=== PATIENT | female | born 1945 | race Caucasian/White ===

== ENCOUNTER 2018-08-16 17:27 | Inpatient (IN) | payer MEDICARE, OTHER, SELFPAY ==
[2018-08-16] VITALS (11 sets, daily range): BP systolic 107–147; BP diastolic 49–98; PULSE 70–77; RESP 18–25; TEMP 36.9–37.3; O2SAT 90–100; BMI 32.9
--- NOTE | 2018-08-16 17:41 | DI.RAD.S_ITS ---
PROCEDURE: XR CHEST 1V INDICATIONS: short of breath hypoxic TECHNIQUE: One view of the chest was acquired. COMPARISON: None. FINDINGS: Surgical changes and devices: None. Lungs and pleura: There is a mild overall appearance increased vascularity. Patchy retrocardiac opacity is present. Mild left effusion. Mediastinum: Mediastinal contours appear normal. Heart size is enlarged. Bones and chest wall: No suspicious bony lesions. Overlying soft tissues appear unremarkable. IMPRESSION: Cardiomegaly with mild left effusion and increased vascularity suggestive of edema. Patchy retrocardiac opacity is present which could represent developing airspace disease such as pneumonia. Dictated by: Zoey Eastman M.D. on 08/16/2018 at 18:20 Approved by: Zoey Eastman M.D. on 08/16/2018 at 18:21
[2018-08-16 17:58] LABS: Add Manual Diff / Slide Review NO; Basophils Absolute Auto 0 /uL (0-100); Basophils Percent Auto 0.3 % (0-2); Eosinophils Absolute Auto 500 /uL (0-450); Eosinophils Percent Auto 3.2 % (2-4); Hematocrit 35.7 % (36-46); Hemoglobin 12.1 g/dL (12.0-16.0); Lymphocytes Absolute Auto 400 /uL (1100-4500); Lymphocytes Percent Auto 2.9 % (25-40); Mean Corpuscular HGB Conc 33.8 % (30-36); Mean Corpuscular Volume 91.7 fL (80-100); Monocytes Absolute Auto 900 /uL (0-900); Monocytes Percent Auto 6.2 % (3-14); Neutrophils Absolute Auto 12500 /uL (1500-7000); Neutrophils Percent Auto 87.4 % (50-75); Platelet Count 197 X10^3/uL (150-400); Red Cell Distribution Width 14.3 % (11.6-14.8); White Blood Cell Count 14.4 X10^3/uL (4.5-11.0)
[2018-08-16] MEDS: ALBUTEROL/IPRATROPIUM 3 ML AMPUL INH (17:58)
[2018-08-16 18:00] LABS: INR 1.2 (0.9-1.3)
[2018-08-16 18:03] LABS: PTT Partial Thromboplastin Tim 28 SECONDS (26.4-36.2)
--- NOTE | 2018-08-16 18:03 | ED.SOB ---
HPI - SOB/Dyspnea General Chief Complaint: Shortness of Breath/Dyspnea Stated Complaint: Short of breath Time Seen by Provider: 08/16/18 17:41 Source: patient and family Mode of arrival: ambulatory Limitations: no limitations History of Present Illness This is a 72-year-old female that comes to the emergency department with complaint of cough, shortness of breath and chest pain. That cough started several weeks to 2 weeks ago. Recently she has felt more short of breath, and she has been having chest pain. She states it radiates between her shoulder blades. She states it is pleuritic in nature. She states it feels like burning she states it has been constant for the last several days. She was seen at [facility] because she had a fever of 102 F, her ankles have been swelling and she was having worsening shortness of breath. She had a chest x-ray, CT of abdomen pelvis as well as lab work including a CBC, CMP, BNP but no troponin. Patient has also been having some dysuria and urgency. She has chronic urinary incontinence. She has not had any nausea or vomiting in the last day but did have 1 episode of vomiting prior to being seen in [facility]. She has not had any bright red blood or melena. She states she has had 1 episode of fecal incontinence secondary to coughing. She takes medication for thyroid, hypertension as well as urinary incontinence. She has had issues over the last several years. Related Data Home Medications Medication Instructions Recorded Confirmed albuterol sulfate 1 puff INHALATION QID PRN 08/16/18 08/16/18 azithromycin 250 mg PO DAILY 08/16/18 08/16/18 fesoterodine [Toviaz] 8 mg PO DAILY 08/16/18 08/16/18 levothyroxine 125 mcg PO DAILY 08/16/18 08/16/18 losartan 50 mg PO DAILY 08/16/18 08/16/18 nitrofurantoin monohyd/m-cryst 1 tab PO BID 08/16/18 08/16/18 propranolol 80 mg PO DAILY 08/16/18 08/16/18 Allergies Allergy/AdvReac Type Severity Reaction Status Date / Time No Known Drug Allergies Allergy Verified 08/16/18 17:37 Review of Systems Review of Systems ROS Unobtainable: All systems reviewed & are unremarkable except as noted in HPI and below Constitutional Denies chills, Reports fever(s) (couple days ago), Denies lethargy and Denies weakness Cardiovascular Reports chest pain (pleuritic), Denies chest pain at rest, Denies syncope, Denies rapid heart rate, Reports edema (b/l lower extremities), Denies irregular heart rhythm, Denies lightheadedness, Reports radiating jaw, neck or arm pain (between shoulder blades), Denies palpitations, Reports dyspnea, Reports dyspnea on exertion and Denies orthopnea Respiratory Denies change in phlegm color, Reports chest congestion, Reports cough, Denies hemoptysis, Denies excessive phlegm production, Reports pain on inspiration, Reports dyspnea, Reports dyspnea on exertion, Denies stridor and Reports wheezing Gastrointestinal Gastrointestinal: Denies abdominal pain, Denies change in bowel habits, Denies diarrhea, Denies nausea and Reports vomiting (x1 two days ago) Genitourinary Denies hematuria, Denies urinary frequency, Reports dysuria, Denies flank pain, Reports urinary incontinence and Denies urinary urgency Musculoskeletal Reports back pain (chronic low back pain) Integumentary/Breasts Reports erythema (both legs.) Neurologic Denies syncope and Denies weakness Endocrine Denies palpitations Allergic/Immunologic Reports wheezing PFSH Medical History (Updated 08/16/18 @ 19:21 by Guerline Grider DO) Breast cancer (Chronic) Fusion of lumbar spine (Chronic) Hypertension (Chronic) Hypothyroid (Chronic) LBBB (left bundle branch block) (Chronic) Urinary incontinence (Chronic) Surgical History (Updated 08/16/18 @ 18:45 by Guerline Grider DO) H/O lumpectomy (Chronic) Hx of cholecystectomy (Chronic) Social History (Updated 08/16/18 @ 18:45 by Guerline Grider DO) marital status: household members: spouse Smoking Status: Former smoker alcohol intake: current substance use type: does not use additional social history: Lives in [place] Social History (Updated 08/16/18 @ 18:45 by Guerline Grider DO) marital status: household members: spouse Smoking Status: Former smoker alcohol intake: current substance use type: does not use additional social history: [facility] in [place] Exam Narrative Exam Narrative: GEN: well nourished, well appearing female, alert and oriented x 3, patient appears to be in mild distress. HEENT: Atraumatic, pupils are equal round reactive to light, extraocular movements are intact, nares are clear. HEART: Regular rate and rhythm without murmur, clicks, rubs. Pulses are equal in upper and lower extremities, patient has 2+ edema bilateral lower extremities. LUNGS:Lungs have mild wheeze bilaterally, no rales, crackles, chest moves symmetrically ABD:bowel sounds normal, soft, non-tender, no guarding, rebound, rigidity, no masses noted, no hepatosplenomegaly :No CVA tenderness MSCL: Non-tender, no muscle atrophy, muscles strength 5/5 upper and lower extremities, full range of motion NEURO:CN 2-12 intact, sensation normal Initial Vital Signs Initial Vital Signs: Vital Signs Temperature 99.2 F 08/16/18 17:37 Pulse Rate 77 08/16/18 17:37 Respiratory Rate 22 08/16/18 17:37 Blood Pressure 132/57 L 08/16/18 17:37 Pulse Oximetry 90 L 08/16/18 17:37 Scores HEART Score Heart Score history: Highly Suspicious Heart Score EKG: Non-Specific repolarization disturbance Heart Score Age: > or = 65 years old Heart Score risk factors: 1-2 risk factors Heart Score troponin: < or = to normal limit Heart Score Total: 6 PERC Score Age greater than or equal to 50 years: Yes Heart rate greater than or equal to 100 bpm: No Room Air O2 Sat less than 95%: Yes Unilateral leg swelling: No Recent trauma or surgery: No Hemoptysis: No Prior PE or DVT: No Hormone Use: No Total PERC Score: 2 Course Orders Ordered: ED Orders 08/16/18 17:41 Consult to Respiratory Therapy Evaluate & Treat XR chest 1V Stat EKG-12 Lead Stat 08/16/18 17:43 B Type Natriuretic Peptide Stat Complete Blood Count AUTO DIFF Stat Comprehensive Metabolic Panel Stat Lactate (Lactic Acid) Stat Magnesium Stat Partial Thromboplastin Time Stat Procalcitonin Stat Prothrombin Time INR Stat Troponin & CK Cardiac Panel Stat 08/16/18 18:06 Blood Culture Stat 08/16/18 18:39 CT angio chest PE protocol Stat 08/16/18 21:26 Urinalysis and Microscopic Stat 08/16/18 21:33 Urinalysis and Microscopic Urgent 08/16/18 23:50 Troponin I Q6H 08/17/18 05:00 B Type Natriuretic Peptide Routine Basic Metabolic Panel Routine Complete Blood Count AUTO DIFF Routine Procalcitonin Routine 08/17/18 05:50 Troponin I Q6H 08/17/18 09:27 EC echo limited Urgent Acetaminophen (Tylenol) 650 mg PO Q6HR PRN PRN Reason: As Needed for Fever/Mild Pain Albuterol (Ventolin Hfa) 1 puff INH QID PRN PRN Reason: Wheezing Albuterol (Ventolin) 2.5 mg INH [id number] PRN PRN Reason: shortness of breath Albuterol/Ipratropium (Duoneb) 3 ml INH RTQ4HR PRN PRN Reason: Shortness Of Breath Aspirin (Aspirin Ec) 81 mg PO DAILY [facility] Azithromycin (Zithromax) 250 mg PO DAILY [facility] Stop: 08/19/18 09:00 Enoxaparin Sodium (Lovenox) 40 mg SUBCUT DAILY [facility] Levothyroxine Sodium (Synthroid) 125 mcg PO 0700 [facility] Losartan Potassium (Cozaar) 50 mg PO DAILY [facility] Non-Formulary Medication (Fesoterodine) 8 mg PO DAILY [facility] Propranolol HCl (Inderal La) 80 mg PO DAILY [facility] Discontinued Medications Albuterol/Ipratropium (Duoneb) 3 ml INH NOW ONE Stop: 08/16/18 17:42 Last Admin: 08/16/18 17:58 Dose: 3 ml Aspirin (Aspirin Chew) 324 mg PO NOW ONE Stop: 08/16/18 18:41 Last Admin: 08/16/18 18:58 Dose: 324 mg Furosemide (Lasix) 40 mg IV NOW ONE Stop: 08/16/18 18:41 Last Admin: 08/16/18 18:59 Dose: 40 mg Methylprednisolone (Solu-Medrol 125 Mg Vial) 125 mg IV NOW ONE Stop: 08/16/18 17:42 Last Admin: 08/16/18 18:06 Dose: 125 mg Vital Signs - 8 hr 08/16/18 17:37 08/16/18 17:42 08/16/18 18:06 Temperature 99.2 F Pulse Rate 77 73 Respiratory Rate 22 25 H Blood Pressure 132/57 L Blood Pressure [Right Arm] 119/49 L Pulse Oximetry 90 L 96 96 08/16/18 18:08 08/16/18 18:27 08/16/18 18:30 Temperature Pulse Rate 75 72 74 Respiratory Rate 20 24 21 Blood Pressure Blood Pressure [Right Arm] 107/87 121/55 L Pulse Oximetry 98 94 100 08/16/18 19:30 08/16/18 20:00 08/16/18 20:30 Temperature Pulse Rate 71 71 70 Respiratory Rate 23 24 Blood Pressure Blood Pressure [Right Arm] 147/98 H 143/61 H 129/60 Pulse Oximetry 95 96 97 08/16/18 21:00 08/16/18 21:15 Temperature 98.4 F Pulse Rate 72 71 Respiratory Rate 22 18 Blood Pressure 129/70 140/60 Blood Pressure [Right Arm] Pulse Oximetry 97 93 MDM - SOB/Dyspnea Lab Data Attestation: I reviewed the patient's lab results. Result diagrams: 08/16/18 17:43 08/16/18 17:43 Lab Results 08/16/18 08/16/18 08/16/18 Range/Units 17:43 17:43 17:43 WBC 14.4 H (4.5-11.0) X10^3/uL RBC 3.90 L (4.0-5.2) X10^6/uL Hgb 12.1 (12.0-16.0) g/dL Hct 35.7 L (36-46) % MCV 91.7 (80-100) fL MCH 31.0 (26-34) PG MCHC 33.8 (30-36) % RDW 14.3 (11.6-14.8) % Plt Count 197 (150-400) X10^3/uL Neut % (Auto) 87.4 H (50-75) % Lymph % (Auto) 2.9 L (25-40) % Preston % (Auto) 6.2 (3-14) % Eos % (Auto) 3.2 (2-4) % Baso % (Auto) 0.3 (0-2) % Neut # (Auto) 11170 H (4062-3760) /uL Lymph # (Auto) 400 L (9035-4769) /uL Preston # (Auto) 900 (0-900) /uL Eos # (Auto) 500 H (0-450) /uL Baso # (Auto) 0 (0-100) /uL PT 14.0 H (10.1-12.7) SECONDS INR 1.2 (0.9-1.3) APTT 28 (26.4-36.2) SECONDS Sodium 141 (137-145) mmol/L Potassium 4.1 (3.4-5.1) mmol/L Chloride 107 (98-107) mmol/L Carbon Dioxide 24 (22-32) mmol/L BUN 20 H (7-17) mg/dL Creatinine 0.90 (0.52-1.04) mg/dL Estimated GFR > 60.0 (>60) mL/min BUN/Creatinine Ratio 22.2 H (6-22) Glucose 129 H (80-110) mg/dL Lactate (0.7-2.1) mmol/L Calcium 8.8 (8.4-10.2) mg/dL Magnesium 1.8 (1.6-2.3) mg/dL Total Bilirubin 1.0 (0.2-1.3) mg/dL AST 57 H (14-36) IU/L ALT 44 (9-52) IU/L Alkaline Phosphatase 115 (38-126) U/L Total Creatine Kinase 66 (30-135) U/L CK-MB (CK-2) TNP CK-MB (CK-2) Rel Index TNP Troponin I 0.013 (0.01-0.034) ng/mL B-Natriuretic Peptide 963 H (<100) Total Protein 6.8 (6.3-8.2) g/dL Albumin 3.7 (3.5-5.0) g/dL Globulin 3.1 (1.7-4.1) g/dL Albumin/Globulin Ratio 1.2 (1.0-2.8) Procalcitonin (<0.5) ng/mL 08/16/18 08/16/18 Range/Units 17:43 17:43 WBC (4.5-11.0) X10^3/uL RBC (4.0-5.2) X10^6/uL Hgb (12.0-16.0) g/dL Hct (36-46) % MCV (80-100) fL MCH (26-34) PG MCHC (30-36) % RDW (11.6-14.8) % Plt Count (150-400) X10^3/uL Neut % (Auto) (50-75) % Lymph % (Auto) (25-40) % Preston % (Auto) (3-14) % Eos % (Auto) (2-4) % Baso % (Auto) (0-2) % Neut # (Auto) (3619-2633) /uL Lymph # (Auto) (7407-2819) /uL Preston # (Auto) (0-900) /uL Eos # (Auto) (0-450) /uL Baso # (Auto) (0-100) /uL PT (10.1-12.7) SECONDS INR (0.9-1.3) APTT (26.4-36.2) SECONDS Sodium (137-145) mmol/L Potassium (3.4-5.1) mmol/L Chloride (98-107) mmol/L Carbon Dioxide (22-32) mmol/L BUN (7-17) mg/dL Creatinine (0.52-1.04) mg/dL Estimated GFR (>60) mL/min BUN/Creatinine Ratio (6-22) Glucose (80-110) mg/dL Lactate 1.2 (0.7-2.1) mmol/L Calcium (8.4-10.2) mg/dL Magnesium (1.6-2.3) mg/dL Total Bilirubin (0.2-1.3) mg/dL AST (14-36) IU/L ALT (9-52) IU/L Alkaline Phosphatase (38-126) U/L Total Creatine Kinase (30-135) U/L CK-MB (CK-2) CK-MB (CK-2) Rel Index Troponin I (0.01-0.034) ng/mL B-Natriuretic Peptide (<100) Total Protein (6.3-8.2) g/dL Albumin (3.5-5.0) g/dL Globulin (1.7-4.1) g/dL Albumin/Globulin Ratio (1.0-2.8) Procalcitonin 0.21 (<0.5) ng/mL Imaging Data Chest x-ray: Radiologist's impression: [address] [address] XRay Report Signed Patient: Carolyn Peñaloza#: [id number] : 5Acct:[id number] Age/Sex: 72 / FDate of Service: 08/16/18 Loc: ED Accession Number: [id number] Procedure: XR chest 1V Ordering Provider: Yanely Reddy D.O. PROCEDURE: XR CHEST 1V INDICATIONS: short of breath hypoxic TECHNIQUE: One view of the chest was acquired. COMPARISON: None. FINDINGS: Surgical changes and devices: None. Lungs and pleura: There is a mild overall appearance increased vascularity. Patchy retrocardiac opacity is present. Mild left effusion. Mediastinum: Mediastinal contours appear normal. Heart size is enlarged. Bones and chest wall: No suspicious bony lesions. Overlying soft tissues appear unremarkable. IMPRESSION: Cardiomegaly with mild left effusion and increased vascularity suggestive of edema. Patchy retrocardiac opacity is present which could represent developing airspace disease such as pneumonia. Dictated by: Zoey Eastman M.D. on 08/16/2018 at 18:20 Approved by: Zoey Eastman M.D. on 08/16/2018 at 18:21 ECG Data Attestation: I personally reviewed and interpreted this ECG as follows: Prior ECG tracings: not available for review Interpretation: Sinus rhythm with a rate of 74 P are 184 QRS of 154 QTC of 475 left bundle-branch block. Patient has impression 1 aVL. MDM Narrative Medical decision making narrative: Patient had a workup at Tuesday that did not include troponin but did include a BNP in the 400 range. She had a chest x-ray as well as an CT of the abdomen and pelvis which showed left lower lobe pneumonia/effusion. Patient's other lab work today shows a white count of 14 hemoglobin appears stable. PTT slightly elevated but coags otherwise normal, chemistry showed BUN elevated at 20 with a glucose of 129, normal lactate, normal electrolytes otherwise, LFTs are normal and troponin is 0.013 with a BNP that is 963 and procalcitonin is 0.21 makes pneumonia less likely. Patient did respond albuterol she feels better, her wheeze did resolve. I am concerned about PE with her long distance driving from [place] and the couple weeks. According to patient's family her daughter is a PA, she has had a left bundle branch block for many years and had a stress test 1 or 2 years ago which was negative. On recheck patient's wheezing is resolved. She is feeling much better. Her oxygenation has been improving. Discussed with patient although her troponin is negative, BNP is rising. Likely she has congestive heart failure but with her recent long distance travel and pleuritic chest pain I would recommend a CT of her chest to evaluate for PE. Patient was given a dose of Lasix 40 mg IV as well as aspirin [address] PE is negative, does show mild bilateral delusions, pulmonary nodule x2 noted, no pleural effusions or pneumothorax. Patient case was discussed with JANE Awad who accepts for inpatient and saw patient in the Emergency Department. Discharge Plan Departure Patient Disposition: Admitted as Observation Clinical Impression: Congestive heart failure (CHF) Discharge Date/Time: 08/16/18 21:07 Interventions: ED Discharge Assessment Last Done: 08/16/18 21:07 Admit Date/Time: 08/16/18 20:14 Admit Provider: Maggie Awad
[2018-08-16 18:04] LABS: Alanine Aminotransferase 44 IU/L (9-52); Albumin 3.7 g/dL (3.5-5.0); Albumin Globulin Ratio 1.2 (1.0-2.8); Alkaline Phosphatase 115 U/L (38-126); Aspartate Aminotransferase 57 IU/L (14-36); BUN Creatinine Ratio 22.2 (6-22); Blood Urea Nitrogen 20 mg/dL (7-17); Calcium 8.8 mg/dL (8.4-10.2); Carbon Dioxide 24 mmol/L (22-32); Chloride 107 mmol/L (98-107); Creatine Kinase 66 U/L (30-135); Estimated Glomerular Filt Rate > 60.0 mL/min (>60); Globulin 3.1 g/dL (1.7-4.1); Glucose 129 mg/dL (80-110); HEMOLYSIS 39 (0-50); Magnesium 1.8 mg/dL (1.6-2.3); Potassium 4.1 mmol/L (3.4-5.1); Sodium 141 mmol/L (137-145); Total Protein 6.8 g/dL (6.3-8.2)
[2018-08-16 18:05] LABS: Lactate (Lactic Acid) 1.2 mmol/L (0.7-2.1)
[2018-08-16] MEDS: methylPREDNISolone 125 MG/2 ML VIAL IV (18:06)
[2018-08-16 18:09] LABS: B Type Natriuretic Peptide 963 (<100)
[2018-08-16 18:16] LABS: Troponin I 0.013 ng/mL (0.01-0.034)
[2018-08-16 18:27] LABS: Procalcitonin 0.21 ng/mL (<0.5)
--- NOTE | 2018-08-16 18:29 | ED_ITS ---
HPI - SOB/Dyspnea General Chief Complaint: Shortness of Breath/Dyspnea Stated Complaint: Short of breath Time Seen by Provider: 08/16/18 17:41 Source: patient and family Mode of arrival: ambulatory Limitations: no limitations History of Present Illness This is a 72-year-old female that comes to the emergency department with complaint of cough, shortness of breath and chest pain. That cough started several weeks to 2 weeks ago. Recently she has felt more short of breath, and she has been having chest pain. She states it radiates between her shoulder blades. She states it is pleuritic in nature. She states it feels like burning she states it has been constant for the last several days. She was seen at [place] because she had a fever of 102 F, her ankles have been swelling and she was having worsening shortness of breath. She had a chest x-ray, CT of abdomen pelvis as well as lab work including a CBC, CMP, BNP but no troponin. Patient has also been having some dysuria and urgency. She has chronic urinary incontinence. She has not had any nausea or vomiting in the last day but did have 1 episode of vomiting prior to being seen in [place]. She has not had any bright red blood or melena. She states she has had 1 episode of fecal incontinence secondary to coughing. She takes medication for thyroid, hy pertension as well as urinary incontinence. She has had issues over the last several years. Related Data Home Medications Medication Instructions Recorded Confirmed albuterol sulfate 1 puff INHALATION QID PRN 08/16/18 08/16/18 azithromycin 250 mg PO DAILY 08/16/18 08/16/18 fesoterodine [Toviaz] 8 mg PO DAILY 08/16/18 08/16/18 levothyroxine 125 mcg PO DAILY 08/16/18 08/16/18 losartan 50 mg PO DAILY 08/16/18 08/16/18 nitrofurantoin monohyd/m-cryst 1 tab PO BID 08/16/18 08/16/18 propranolol 80 mg PO DAILY 08/16/18 08/16/18 Allergies Allergy/AdvReac Type Severity Reaction Status Date / Time No Known Drug Allergies Allergy Verified 08/16/18 17:37 Review of Systems Review of Systems ROS Unobtainable: All systems reviewed & are unremarkable except as noted in HPI and below Constitutional Denies chills, Reports fever(s) (couple days ago), Denies lethargy and Denies weakness Cardiovascular Reports chest pain (pleuritic), Denies chest pain at rest, Denies syncope, Denies rapid heart rate, Reports edema (b/l lower extremities), Denies irregular heart rhythm, Denies lightheadedness, Reports radiating jaw, neck or arm pain (between shoulder blades), Denies palpitations, Reports dyspnea, Reports dyspnea on exertion and Denies orthopnea Respiratory Denies change in phlegm color, Reports chest congestion, Reports cough, Denies hemoptysis, Denies excessive phlegm production, Reports pain on inspiration, Reports dyspnea, Reports dyspnea on exertion, Denies stridor and Reports wheezing Gastrointestinal Gastrointestinal: Denies abdominal pain, Denies change in bowel habits, Denies diarrhea, Denies nausea and Reports vomiting (x1 two days ago) Genitourinary Denies hematuria, Denies urinary frequency, Reports dysuria, Denies flank pain, Reports urinary incontinence and Denies urinary urgency Musculoskeletal Reports back pain (chronic low back pain) Integumentary/Breasts Reports erythema (both legs.) Neurologic Denies syncope and Denies weakness Endocrine Denies palpitations Allergic/Immunologic Reports wheezing PFSH Medical History (Updated 08/16/18 @ 19:21 by Guerline Grider DO) Breast cancer (Chronic) Fusion of lumbar spine (Chronic) Hypertension (Chronic) Hypothyroid (Chronic) LBBB (left bundle branch block) (Chronic) Urinary incontinence (Chronic) Surgical History (Updated 08/16/18 @ 18:45 by Guerline Grider DO) H/O lumpectomy (Chronic) Hx of cholecystectomy (Chronic) Social History (Updated 08/16/18 @ 18:45 by Guerline Grider DO) marital status: household members: spouse Smoking Status: Former smoker alcohol intake: current substance use type: does not use additional social history: Lives in [place] Social History (Updated 08/16/18 @ 18:45 by Guerline Grider DO) marital status: household members: spouse Smoking Status: Former smoker alcohol intake: current substance use type: does not use additional social history: Lives in [place] Exam Narrative Exam Narrative: GEN: well nourished, well appearing female, alert and oriented x 3, patient appears to be in mild distress. HEENT: Atraumatic, pupils are equal round reactive to light, extraocular movements are intact, nares are clear. HEART: Regular rate and rhythm without murmur, clicks, rubs. Pulses are equal in upper and lower extremities, patient has 2+ edema bilateral lower extremities. LUNGS:Lungs have mild wheeze bilaterally, no rales, crackles, chest moves symmetrically ABD:bowel sounds normal, soft, non-tender, no guarding, rebound, rigidity, no masses noted, no hepatosplenomegaly :No CVA tenderness MSCL: Non-tender, no muscle atrophy, muscles strength 5/5 upper and lower ext remities, full range of motion NEURO:CN 2-12 intact, sensation normal Initial Vital Signs Initial Vital Signs: Vital Signs Temperature 99.2 F 08/16/18 17:37 Pulse Rate 77 08/16/18 17:37 Respiratory Rate 22 08/16/18 17:37 Blood Pressure 132/57 L 08/16/18 17:37 Pulse Oximetry 90 L 08/16/18 17:37 Scores HEART Score Heart Score history: Highly Suspicious Heart Score EKG: Non-Specific repolarization disturbance Heart Score Age: > or = 65 years old Heart Score risk factors: 1-2 risk factors Heart Score troponin: < or = to normal limit Heart Score Total: 6 PERC Score Age greater than or equal to 50 years: Yes Heart rate greater than or equal to 100 bpm: No Room Air O2 Sat less than 95%: Yes Unilateral leg swelling: No Recent trauma or surgery: No Hemoptysis: No Prior PE or DVT: No Hormone Use: No Total PERC Score: 2 Course Orders Ordered: ED Orders 08/16/18 17:41 Consult to Respiratory Therapy Evaluate & Treat XR chest 1V Stat EKG-12 Lead Stat 08/16/18 17:43 B Type Natriuretic Peptide Stat Complete Blood Count AUTO DIFF Stat Comprehensive Metabolic Panel Stat Lactate (Lactic Acid) Stat Magnesium Stat Partial Thromboplastin Time Stat Procalcitonin Stat Prothrombin Time INR Stat Troponin & CK Cardiac Panel Stat 08/16/18 18:06 Blood Culture Stat 08/16/18 18:39 CT angio chest PE protocol Stat 08/16/18 21:26 Urinalysis and Microscopic Stat 08/16/18 21:33 Urinalysis and Microscopic Urgent 08/16/18 23:50 Troponin I Q6H 08/17/18 05:00 B Type Natriuretic Peptide Routine Basic Metabolic Panel Routine Complete Blood Count AUTO DIFF Routine Procalcitonin Routine 08/17/18 05:50 Troponin I Q6H 08/17/18 09:27 EC echo limited Urgent Acetaminophen (Tylenol) 650 mg PO Q6HR PRN PRN Reason: As Needed for Fever/Mild Pain Albuterol (Ventolin Hfa) 1 puff INH QID PRN PRN Reason: Wheezing Albuterol (Ventolin) 2.5 mg INH [id number] PRN PRN Reason: shortness of breath Albuterol/Ipratropium (Duoneb) 3 ml INH RTQ4HR PRN PRN Reason: Shortness Of Breath Aspirin (Aspirin Ec) 81 mg PO DAILY CYNDI Azithromycin (Zithromax) 250 mg PO DAILY CYNDI Stop: 08/19/18 09:00 Enoxaparin Sodium (Lovenox) 40 mg SUBCUT DAILY [facility] Levothyroxine Sodium (Synthroid) 125 mcg PO 0700 CYNDI Losartan Potassium (Cozaar) 50 mg PO DAILY [facility] Non-Formulary Medication (Fesoterodine) 8 mg PO DAILY CYNDI Propranolol HCl (Inderal La) 80 mg PO DAILY [facility] Discontinued Medications Albuterol/Ipratropium (Duoneb) 3 ml INH NOW ONE Stop: 08/16/18 17:42 Last Admin: 08/16/18 17:58 Dose: 3 ml Aspirin (Aspirin Chew) 324 mg PO NOW ONE Stop: 08/16/18 18:41 Last Admin: 08/16/18 18:58 Dose: 324 mg Furosemide (Lasix) 40 mg IV NOW ONE Stop: 08/16/18 18:41 Last Admin: 08/16/18 18:59 Dose: 40 mg Methylprednisolone (Solu-Medrol 125 Mg Vial) 125 mg IV NOW ONE Stop: 08/16/18 17:42 Last Admin: 08/16/18 18:06 Dose: 125 mg Vital Signs - 8 hr 08/16/18 17:37 08/16/18 17:42 08/16/18 18:06 Temperature 99.2 F Pulse Rate 77 73 Respiratory Rate 22 25 H Blood Pressure 132/57 L Blood Pressure [Right Arm] 119/49 L Pulse Oximetry 90 L 96 96 08/16/18 18:08 08/16/18 18:27 08/16/18 18:30 Temperature Pulse Rate 75 72 74 Respiratory Rate 20 24 21 Blood Pressure Blood Pressure [Right Arm] 107/87 121/55 L Pulse Oximetry 98 94 100 08/16/18 19:30 08/16/18 20:00 08/16/18 20:30 Temperature Pulse Rate 71 71 70 Respiratory Rate 23 24 Blood Pressure Blood Pressure [Right Arm] 147/98 H 143/61 H 129/60 Pulse Oximetry 95 96 97 08/16/18 21:00 08/16/18 21:15 Temperature 98.4 F Pulse Rate 72 71 Respiratory Rate 22 18 Blood Pressure 129/70 140/60 Blood Pressure [Right Arm] Pulse Oximetry 97 93 MDM - SOB/Dyspnea Lab Data Attestation: I reviewed the patient's lab results. Result diagrams: 08/16/18 17:43 08/16/18 17:43 Lab Results 08/16/18 08/16/18 08/16/18 Range/Units 17:43 17:43 17:43 WBC 14.4 H (4.5-11.0) X10^3/uL RBC 3.90 L (4.0-5.2) X10^6/uL Hgb 12.1 (12.0-16.0) g/dL Hct 35.7 L (36-46) % MCV 91.7 (80-100) fL MCH 31.0 (26-34) PG MCHC 33.8 (30-36) % RDW 14.3 (11.6-14.8) % Plt Count 197 (150-400) X10^3/uL Neut % (Auto) 87.4 H (50-75) % Lymph % (Auto) 2.9 L (25-40) % [place] % (Auto) 6.2 (3-14) % Eos % (Auto) 3.2 (2-4) % Baso % (Auto) 0.3 (0-2) % Neut # (Auto) 50076 H (8989-4765) /uL Lymph # (Auto) 400 L (8078-5760) /uL [place] # (Auto) 900 (0-900) /uL Eos # (Auto) 500 H (0-450) /uL Baso # (Auto) 0 (0-100) /uL PT 14.0 H (10.1-12.7) SECONDS INR 1.2 (0.9-1.3) APTT 28 (26.4-36.2) SECONDS Sodium 141 (137-145) mmol/L Potassium 4.1 (3.4-5.1) mmol/L Chloride 107 (98-107) mmol/L Carbon Dioxide 24 (22-32) mmol/L BUN 20 H (7-17) mg/dL Creatinine 0.90 (0.52-1.04) mg/dL Estimated GFR > 60.0 (>60) mL/min BUN/Creatinine Ratio 22.2 H (6-22) Glucose 129 H (80-110) mg/dL Lactate (0.7-2.1) mmol/L Calcium 8.8 (8.4-10.2) mg/dL Magnesium 1.8 (1.6-2.3) mg/dL Total Bilirubin 1.0 (0.2-1.3) mg/dL AST 57 H (14-36) IU/L ALT 44 (9-52) IU/L Alkaline Phosphatase 115 (38-126) U/L Total Creatine Kinase 66 (30-135) U/L CK-MB (CK-2) TNP CK-MB (CK-2) Rel Index TNP Troponin I 0.013 (0.01-0.034) ng/mL B-Natriuretic Peptide 963 H (<100) Total Protein 6.8 (6.3-8.2) g/dL Albumin 3.7 (3.5-5.0) g/dL Globulin 3.1 (1.7-4.1) g/dL Albumin/Globulin Ratio 1.2 (1.0-2.8) Procalcitonin (<0.5) ng/mL 08/16/18 08/16/18 Range/Units 17:43 17:43 WBC (4.5-11.0) X10^3/uL RBC (4.0-5.2) X10^6/uL Hgb (12.0-16.0) g/dL Hct (36-46) % MCV (80-100) fL MCH (26-34) PG MCHC (30-36) % RDW (11.6-14.8) % Plt Count (150-400) X10^3/uL Neut % (Auto) (50-75) % Lymph % (Auto) (25-40) % [place] % (Auto) (3-14) % Eos % (Auto) (2-4) % Baso % (Auto) (0-2) % Neut # (Auto) (6798-0356) /uL Lymph # (Auto) (4045-2643) /uL [place] # (Auto) (0-900) /uL Eos # (Auto) (0-450) /uL Baso # (Auto) (0-100) /uL PT (10.1-12.7) SECONDS INR (0.9-1.3) APTT (26.4-36.2) SECONDS Sodium (137-145) mmol/L Potassium (3.4-5.1) mmol/L Chloride (98-107) mmol/L Carbon Dioxide (22-32) mmol/L BUN (7-17) mg/dL Creatinine (0.52-1.04) mg/dL Estimated GFR (>60) mL/min BUN/Creatinine Ratio (6-22) Glucose (80-110) mg/dL Lactate 1.2 (0.7-2.1) mmol/L Calcium (8.4-10.2) mg/dL Magnesium (1.6-2.3) mg/dL Total Bilirubin (0.2-1.3) mg/dL AST (14-36) IU/L ALT (9-52) IU/L Alkaline Phosphatase (38-126) U/L Total Creatine Kinase (30-135) U/L CK-MB (CK-2) CK-MB (CK-2) Rel Index Troponin I (0.01-0.034) ng/mL B-Natriuretic Peptide (<100) Total Protein (6.3-8.2) g/dL Albumin (3.5-5.0) g/dL Globulin (1.7-4.1) g/dL Albumin/Globulin Ratio (1.0-2.8) Procalcitonin 0.21 (<0.5) ng/mL Imaging Data Chest x-ray: Radiologist's impression: [address] [address] XRay Report Signed Patient: Carolyn Peñaloza#: [id number] : 5Acct:[id number] Age/Sex: 72 / FDate of Service: 08/16/18 Loc: ED Accession Number: [id number] Procedure: XR chest 1V Ordering Provider: Yanely Reddy D.O. PROCEDURE: XR CHEST 1V INDICATIONS: short of breath hypoxic TECHNIQUE: One view of the chest was acquired. COMPARISON: None. FINDINGS: Surgical changes and devices: None. Lungs and pleura: There is a mild overall appearance increased vascularity. Patchy retrocardiac opacity is present. Mild left effusion. Mediastinum: Mediastinal contours appear normal. Heart size is enlarged. Bones and chest wall: No suspicious bony lesions. Overlying soft tissues appear unremarkable. IMPRESSION: Cardiomegaly with mild left effusion and increased vascularity suggestive of edema. Patchy retrocardiac opacity is present which could represent developing a irspace disease such as pneumonia. Dictated by: Zoey Eastman M.D. on 08/16/2018 at 18:20 Approved by: Zoey Eastman M.D. on 08/16/2018 at 18:21 ECG Data Attestation: I personally reviewed and interpreted this ECG as follows: Prior ECG tracings: not available for review Interpretation: Sinus rhythm with a rate of 74 P are 184 QRS of 154 QTC of 475 left bundle-branch block. Patient has impression 1 aVL. MDM Narrative Medical decision making narrative: Patient had a workup at Tuesday that did not include troponin but did include a BNP in the 400 range. She had a chest x-ray as well as an CT of the abdomen and pelvis which showed left lower lobe pneumonia/effusion. Patient's other lab work today shows a white count of 14 hemoglobin appears stable. PTT slightly elevated but coags otherwise normal, chemistry showed BUN elevated at 20 with a glucose of 129, normal lactate, normal electrolytes otherwise, LFTs are normal and troponin is 0.013 with a BNP that is 963 and procalcitonin is 0.21 makes pneumonia less likely. Patient did respond albuterol she feels better, her wheeze did resolve. I am concerned about PE with her long distance driving from [place] and the couple weeks. According to patient's family her daughter is a PA, she has had a left bundle branch block for many years and had a stress test 1 or 2 years ago which was negative. On recheck patient's wheezing is resolved. She is feeling much better. Her oxygenation has been improving. Discussed with patient although her troponin is negative, BNP is rising. Likely she has congestive heart failure but with her recent long distance travel and pleuritic chest pain I would recommend a CT of her chest to evaluate for PE. Patient was given a dose of Lasix 40 mg IV as well as aspirin [address] PE is negative, does show mild bilateral delusions, pulmonary nodule x2 noted, no pleural effusions or pneumothorax. Patient case was discussed with JANE Awad who accepts for inpatient and saw patient in the Emergency Department. Discharge Plan Departure Patient Disposition: Admitted as Observation Clinical Impression: Congestive heart failure (CHF) Discharge Date/Time: 08/16/18 21:07 Interventions: ED Discharge Assessment Last Done: 08/16/18 21:07 Admit Date/Time: 08/16/18 20:14 Admit Provider: Maggie Awad
--- NOTE | 2018-08-16 18:39 | DI.CT.S_ITS ---
PROCEDURE: CT ANGIO CHEST PE PROTOCOL INDICATIONS: chest pain, sob, chf, concern for pe vs chf TECHNIQUE: After the administration of intravenous contrast, 2 mm thick sections acquired from the pulmonary apices to the posterior costophrenic angles. 3-dimensional maximum intensity projection (MIP) coronal and sagittal reformats were then acquired through the thorax. For radiation dose reduction, the following was used: automated exposure control, adjustment of mA and/or kV according to patient size. COMPARISON: None. FINDINGS: Image quality: Excellent. Pulmonary arteries: Pulmonary arteries are normal in size, and demonstrate no intraluminal filling defects to suggest central pulmonary embolism. Lungs and pleura: Mild bilateral effusions. 6 mm right upper lobe nodule on image 136 series 5. 6 mm right apical nodule on series 5 image 56. No priors are available for comparison. No pleural effusions or pneumothorax. Central and peripheral airways are patent. Mediastinum: Heart size is normal, without pericardial effusion. No mediastinal or hilar adenopathy. Thoracic aorta is normal in caliber and enhancement. Esophagus is normal in caliber, without hiatal hernia. Bones and chest wall: No suspicious bony lesions. Ribs and thoracic spine appear intact throughout. Thyroid gland is unremarkable. No axillary or supraclavicular adenopathy. Abdomen: Visualized upper abdominal solid organs appear normal in the early arterial phase of enhancement. IMPRESSION: 1. Mild bilateral effusions. 2. No pulmonary embolus. 3. Subcentimeter pulmonary nodules are nonspecific. No priors are available for comparison. Recommend followup as below. Fleischner Society criteria for lung nodule followup. Nodule size (mm)Low-risk patientHigh-risk patient<6 (single or multiple)No routine followup/Optional CT at 12 months.6-8 (single or multiple)CT at 6-12 months; then noptional CT at 18-24 monthsCT at 6-12 months, then 18-24 months i>8 (single)CT at 3 months, then optional CT at 18-24 months if no change.Initial follow-up CT at 3-6 months, then 18-24 months >8 (multiple)CT at 3-[address] at 18-24 months.CT at 3-6 months, then CT at 18-24 months.Non-solid (ground-glass) or partly solid nodules may require longer follow-up to exclude indolent adenocarcinoma. Dictated by: Zoey Eastman M.D. on 08/16/2018 at 19:17 Approved by: Zoey Eastman M.D. on 08/16/2018 at 19:25
[2018-08-16] MEDS: ASPIRIN 81 MG TAB 324 MG PO (18:58)
[2018-08-16] MEDS: FUROSEMIDE 40 MG/4 ML VIAL IV (18:59)
[2018-08-16 23:13] LABS: Bacteria Urine None Seen; RBC Urine None Seen (0-5/HPF)
[2018-08-16 23:15] LABS: Appearance Urine UA CLEAR; Bilirubin Urine UA NEGATIVE (NEGATIVE); Color Urine UA YELLOW; Glucose Urine UA NEGATIVE (Negative); Ketones Urine UA NEGATIVE (NEGATIVE); Leukocyte Esterase Urine UA NEGATIVE (NEGATIVE); Nitrite Urine UA NEGATIVE (Negative); Occult Blood Urine UA NEGATIVE (Negative); Protein Urine UA NEGATIVE (Negative); Specific Gravity Urine UA 1.015 (1.000-1.035); Urobilinogen Urine UA 0.2 E.U./dL (0.2)
--- NOTE | 2018-08-16 23:15 | PM.HP.1 ---
History of Present Illness Date Patient Seen: 08/16/18 Time Patient Seen: 08:30 Chief complaint: Short of breath Narrative: Pao Peñaloza is a delightful 72 y.o. female who is summering in [place] and is from [facility]. She had flown in from [place] within the past month and has been travelling through the [facility] with her daughter, son-in-law and granddaughter. She initially went to [facility] ED for a cough, shortness of breath, a fever of 102, and diagnosed with pneumonia. She was given a 5-day Z-Pack. They did a bilateral leg ultrasound to see if she might have a DVT and none was identified. Prior to her flight, the patient developed dysuria, called her PCP who called in a prescription for macrobid for which she is still taking. Daughter and patient states yesterday she seemed to have finally improved, but today her shortness of breath symptoms worsened. She presents today with a cough, pleuritic chest pain, and shortness of breath. She felt more improved, denied fever prior to coming to the ED. She was oxygenating from 88-90%, had lower extremity swelling for which now she complains of pain and swelling of her right calf. She was given Lasix 40 mg IV X [address] angio was negative for a PE, however noted small bilateral pleural effusions, and sub-centimeter nodules. She requests Monroe placement stating she has chronic incontinence, but denies urinary pain at this time. She takes Toviaz for urinary incontinence Daughter Chika Collier provides some history as well. She states approximately 5 years ago, the patient was in surgery to have 5 level lumbar fusion. Interoperatively, she became very hypotensive and the surgery was cut short, but was diagnosed with a left bundle branch block. She was to follow up with cardiology, however, in her recovery period, she fell and fractured her sacrum and was lost to cardiology follow-up. Patient History Medical History Breast cancer (Chronic) Fusion of lumbar spine (Chronic) Hypertension (Chronic) Hypothyroid (Chronic) LBBB (left bundle branch block) (Chronic) Urinary incontinence (Chronic) Surgical History H/O lumpectomy (Chronic) Hx of cholecystectomy (Chronic) Social History (Updated 08/16/18 @ 18:45 by Guerline Grider DO) marital status: household members: spouse Smoking Status: Former smoker alcohol intake: current substance use type: does not use additional social history: Lives in [place] Family & Social History Social History: household members spouse Prior Living Arrangements House Safety & Behavioral: Feels Safe in Current Yes Environment Been Physically Hurt or No Threatened By a Person Suicidal Ideation Description None Suicide Plan Description No Plan Tobacco & Substance use: Smoking Status Former smoker alcohol intake current alcohol intake frequency holiday/special occasion Substance Use Type does not use Meds Home Medications Medication Instructions Recorded Confirmed Type albuterol sulfate 1 puff INHALATION QID PRN 08/16/18 08/16/18 History azithromycin 250 mg PO DAILY 08/16/18 08/16/18 History fesoterodine [Toviaz] 8 mg PO DAILY 08/16/18 08/16/18 History levothyroxine 125 mcg PO DAILY 08/16/18 08/16/18 History losartan 50 mg PO DAILY 08/16/18 08/16/18 History nitrofurantoin monohyd/m-cryst 1 tab PO BID 08/16/18 08/16/18 History propranolol 80 mg PO DAILY 08/16/18 08/16/18 History Allergies Allergy/AdvReac Type Severity Reaction Status Date / Time No Known Drug Allergies Allergy Verified 08/16/18 17:37 Review of Systems Review of Systems All systems reviewed & are unremarkable except as noted in HPI and below Exam Vital Signs (past 8 hours): - 08/16/18 17:37 08/16/18 17:42 08/16/18 18:06 Temperature 99.2 F Pulse Rate 77 73 Respiratory Rate 22 25 H Blood Pressure 132/57 L Blood Pressure [Right Arm] 119/49 L Pulse Oximetry 90 L 96 96 08/16/18 18:08 08/16/18 18:27 08/16/18 18:30 Temperature Pulse Rate 75 72 74 Respiratory Rate 20 24 21 Blood Pressure Blood Pressure [Right Arm] 107/87 121/55 L Pulse Oximetry 98 94 100 08/16/18 19:30 08/16/18 20:00 08/16/18 20:30 Temperature Pulse Rate 71 71 70 Respiratory Rate 23 24 Blood Pressure Blood Pressure [Right Arm] 147/98 H 143/61 H 129/60 Pulse Oximetry 95 96 97 08/16/18 21:00 08/16/18 21:15 Temperature 98.4 F Pulse Rate 72 71 Respiratory Rate 22 18 Blood Pressure 129/70 140/60 Blood Pressure [Right Arm] Pulse Oximetry 97 93 Oxygen Delivery Method Nasal Cannula Oxygen Flow Rate 0 Narrative Exam Narrative: Gen: Alert, oriented 72 y.o. well-developed female, NAD, non-toxic appearing HEENT: normocephalic, atraumatic, conjunctiva clear, sclera non-icteric, oral mucosa pink and moist Neck: supple, full ROM Resp: Lungs with faint crackles at the bases, non-labored breathing CV: RRR, no murmur or rubs Abd: soft, non-tender, normoactive BTs Skin: no lesions or rashes, dry and intact Neuro: Alert and oriented X 4 w/no focal deficits Extremities: moves all 4 extremities, is ambulatory Psyche: normal mood and affect. Objective Labs Result Diagrams: 08/16/18 17:43 08/16/18 17:43 Labs: Laboratory Results - last 24 hr 08/16/18 08/16/18 08/16/18 17:43 17:43 17:43 WBC 14.4 H RBC 3.90 L Hgb 12.1 Hct 35.7 L MCV 91.7 MCH 31.0 MCHC 33.8 RDW 14.3 Plt Count 197 Neut % (Auto) 87.4 H Lymph % (Auto) 2.9 L Lincoln % (Auto) 6.2 Eos % (Auto) 3.2 Baso % (Auto) 0.3 Neut # (Auto) 11445 H Lymph # (Auto) 400 L Lincoln # (Auto) 900 Eos # (Auto) 500 H Baso # (Auto) 0 PT 14.0 H INR 1.2 APTT 28 Sodium 141 Potassium 4.1 Chloride 107 Carbon Dioxide 24 BUN 20 H Creatinine 0.90 Estimated GFR > 60.0 BUN/Creatinine Ratio 22.2 H Glucose 129 H Lactate Calcium 8.8 Magnesium 1.8 Total Bilirubin 1.0 AST 57 H ALT 44 Alkaline Phosphatase 115 Total Creatine Kinase 66 CK-MB (CK-2) TNP CK-MB (CK-2) Rel Index TNP Troponin I 0.013 B-Natriuretic Peptide 963 H Total Protein 6.8 Albumin 3.7 Globulin 3.1 Albumin/Globulin Ratio 1.2 Procalcitonin 08/16/18 08/16/18 17:43 17:43 WBC RBC Hgb Hct MCV MCH MCHC RDW Plt Count Neut % (Auto) Lymph % (Auto) Lincoln % (Auto) Eos % (Auto) Baso % (Auto) Neut # (Auto) Lymph # (Auto) Lincoln # (Auto) Eos # (Auto) Baso # (Auto) PT INR APTT Sodium Potassium Chloride Carbon Dioxide BUN Creatinine Estimated GFR BUN/Creatinine Ratio Glucose Lactate 1.2 Calcium Magnesium Total Bilirubin AST ALT Alkaline Phosphatase Total Creatine Kinase CK-MB (CK-2) CK-MB (CK-2) Rel Index Troponin I B-Natriuretic Peptide Total Protein Albumin Globulin Albumin/Globulin Ratio Procalcitonin 0.21 Assessment & Plan Assessment & Plan narrative: Pao Peñaloza is a delightful 72 y.o. female with an acute CHF exacerbation who will be admitted for further work-up and management. She plans to spend the summer in [facility] and is agreeable to following up with Cardiology on an outpatient basis with the intent to establish care with one at her home community. 1. Acute CHF Exacerbation, new, present on admission with a CHADS-VASC score of 4 She will have telemetry overnight Echo on 08/17 Lasix prn for shortness of breath, swelling 2. Pneumonia, improving, present on admission Complete course of azithromycin 250 mg po daily until 08/19 Albuterol/duonebs staggered q 4 hours prn shortness of breath Procalcitonin in the am. 3. Essential Hypertension, stable, chronic and present on admission Continue home dose of propranolol 80 mg po daily Please call Cardiology on 08/17 after echo results Aspirin 81 mg po daily 4. Hypothyroidism, stable and chronic present on admission Continue home dose of levothyroxine 125 mcg daily 5. Urinary incontinence, stable and chronic, present on admission Complete course of macrobid Continue home dose of fesoterodine 8 mg po daily She did request a Monroe placement, discussed risk of worsening her UTI and she agreed not to have one placed. Consider placement if she is urinating continiously. Patient is admitted as an inpatient as her stay is anticipated to exceed 2 midnights. FEN: IV saline lock, 2 gram sodium diet, BMP and BNP for am labs VTE Prophylaxis: enoxaparin 40 mg SubQ daily Disposition: unknown at this time, presumed to be discharged home. Code status: Full code Admission time: 90 minutes Meds reconciled: Partial based on current med list. Time Spent With Patient Time with patient: Greater than 35 minutes Scores CHADS-VASc Congestive heart failure: yes Hypertension: yes Age 75 years or older: no Diabetes mellitus: no Stroke, TIA, or TE: no Vascular disease: no Age 65 to 74 years: yes Sex category (female): Female CHADS-VASc Score: 4 Quality VTE Deep Vein Thrombosis/Pulmonary Embolism Present on Admission: No
[2018-08-16 23:25] LABS: Culture Indicated Urine Cult Not Indicated; WBC Urine 0-1/HPF (0-5/HPF)
--- NOTE | 2018-08-16 23:25 | P.HP_ITS ---
History of Present Illness Date Patient Seen: 08/16/18 Time Patient Seen: 08:30 Chief complaint: Short of breath Narrative: Pao Peñaloza is a delightful 72 y.o. female who is summering in [facility] and is from [facility]. She had flown in from [place] within the past month and has been travelling through the [facility] with her daughter, son-in-law and granddaughter. She initially went to [place] ED for a cough, shortness of breath, a fever of 102, and diagnosed with pneumonia. She was given a 5-day Z-Pack. They did a bilateral leg ultrasound to see if she might have a DVT and none was identified. Prior to her flight, the patient developed dysuria, called her PCP who called in a prescription for macrobid for which she is still taking. Daughter and patient states yesterday she seemed to have finally improved, but today her shortness of breath symptoms worsened. She presents today with a cough, pleuritic chest pain, and shortness of breath. She felt more improved, denied fever prior to coming to the ED. She was oxygenating from 88-90%, had lower extremity swelling for which now she complains of pain and swelling of her right calf. She was given Lasix 40 mg IV X [address] angio was negative for a PE, however noted small bilateral pleural effusions, and sub- centimeter nodules. She requests Monroe placement stating she has chronic incontinence, but denies urinary pain at this time. She takes Toviaz for urinary incontinence Daughter Chika Collier provides some history as well. She states approximately 5 years ago, the patient was in surgery to have 5 level lumbar fusion. Interoperatively, she became very hypotensive and the surgery was cut short, but was diagnosed with a left bundle branch block. She was to follow up with cardiology, however, in her recovery period, she fell and fractured her sacrum and was lost to cardiology follow-up. Patient History Medical History Breast cancer (Chronic) Fusion of lumbar spine (Chronic) Hypertension (Chronic) Hypothyroid (Chronic) LBBB (left bundle branch block) (Chronic) Urinary incontinence (Chronic) Surgical History H/O lumpectomy (Chronic) Hx of cholecystectomy (Chronic) Social History (Updated 08/16/18 @ 18:45 by Guerline Grider DO) marital status: household members: spouse Smoking Status: Former smoker alcohol intake: current substance use type: does not use additional social history: Lives in [place] Family & Social History Social History: household members spouse Prior Living Arrangements House Safety & Behavioral: Feels Safe in Current Yes Environment Been Physically Hurt or No Threatened By a Person Suicidal Ideation Description None Suicide Plan Description No Plan Tobacco & Substance use: Smoking Status Former smoker alcohol intake current alcohol intake frequency holiday/special occasion Substance Use Type does not use Meds Home Medications Medication Instructions Recorded Confirmed Type albuterol sulfate 1 puff INHALATION QID PRN 08/16/18 08/16/18 History azithromycin 250 mg PO DAILY 08/16/18 08/16/18 History fesoterodine [Toviaz] 8 mg PO DAILY 08/16/18 08/16/18 History levothyroxine 125 mcg PO DAILY 08/16/18 08/16/18 History losartan 50 mg PO DAILY 08/16/18 08/16/18 History nitrofurantoin monohyd/m-cryst 1 tab PO BID 08/16/18 08/16/18 History propranolol 80 mg PO DAILY 08/16/18 08/16/18 History Allergies Allergy/AdvReac Type Severity Reaction Status Date / Time No Known Drug Allergies Allergy Verified 08/16/18 17:37 Review of Systems Review of Systems All systems reviewed & are unremarkable except as noted in HPI and below Exam Vital Signs (past 8 hours): - 08/16/18 17:37 08/16/18 17:42 08/16/18 18:06 Temperature 99.2 F Pulse Rate 77 73 Respiratory Rate 22 25 H Blood Pressure 132/57 L Blood Pressure [Right Arm] 119/49 L Pulse Oximetry 90 L 96 96 08/16/18 18:08 08/16/18 18:27 08/16/18 18:30 Temperature Pulse Rate 75 72 74 Respiratory Rate 20 24 21 Blood Pressure Blood Pressure [Right Arm] 107/87 121/55 L Pulse Oximetry 98 94 100 08/16/18 19:30 08/16/18 20:00 08/16/18 20:30 Temperature Pulse Rate 71 71 70 Respiratory Rate 23 24 Blood Pressure Blood Pressure [Right Arm] 147/98 H 143/61 H 129/60 Pulse Oximetry 95 96 97 08/16/18 21:00 08/16/18 21:15 Temperature 98.4 F Pulse Rate 72 71 Respiratory Rate 22 18 Blood Pressure 129/70 140/60 Blood Pressure [Right Arm] Pulse Oximetry 97 93 Oxygen Delivery Method Nasal Cannula Oxygen Flow Rate 0 Narrative Exam Narrative: Gen: Alert, oriented 72 y.o. well-developed female, NAD, non-toxic appearing HEENT: normocephalic, atraumatic, conjunctiva clear, sclera non-icteric, oral mucosa pink and moist Neck: supple, full ROM Resp: Lungs with faint crackles at the bases, non-labored breathing CV: RRR, no murmur or rubs Abd: soft, non-tender, normoactive BTs Skin: no lesions or rashes, dry and intact Neuro: Alert and oriented X 4 w/no focal deficits Extremities: moves all 4 extremities, is ambulatory Psyche: normal mood and affect. Objective Labs Result Diagrams: 08/16/18 17:43 08/16/18 17:43 Labs: Laboratory Results - last 24 hr 08/16/18 08/16/18 08/16/18 17:43 17:43 17:43 WBC 14.4 H RBC 3.90 L Hgb 12.1 Hct 35.7 L MCV 91.7 MCH 31.0 MCHC 33.8 RDW 14.3 Plt Count 197 Neut % (Auto) 87.4 H Lymph % (Auto) 2.9 L [place] % (Auto) 6.2 Eos % (Auto) 3.2 Baso % (Auto) 0.3 Neut # (Auto) 33898 H Lymph # (Auto) 400 L [place] # (Auto) 900 Eos # (Auto) 500 H Baso # (Auto) 0 PT 14.0 H INR 1.2 APTT 28 Sodium 141 Potassium 4.1 Chloride 107 Carbon Dioxide 24 BUN 20 H Creatinine 0.90 Estimated GFR > 60.0 BUN/Creatinine Ratio 22.2 H Glucose 129 H Lactate Calcium 8.8 Magnesium 1.8 Total Bilirubin 1.0 AST 57 H ALT 44 Alkaline Phosphatase 115 Total Creatine Kinase 66 CK-MB (CK-2) TNP CK-MB (CK-2) Rel Index TNP Troponin I 0.013 B-Natriuretic Peptide 963 H Total Protein 6.8 Albumin 3.7 Globulin 3.1 Albumin/Globulin Ratio 1.2 Procalcitonin 08/16/18 08/16/18 17:43 17:43 WBC RBC Hgb Hct MCV MCH MCHC RDW Plt Count Neut % (Auto) Lymph % (Auto) [place] % (Auto) Eos % (Auto) Baso % (Auto) Neut # (Auto) Lymph # (Auto) [place] # (Auto) Eos # (Auto) Baso # (Auto) PT INR APTT Sodium Potassium Chloride Carbon Dioxide BUN Creatinine Estimated GFR BUN/Creatinine Ratio Glucose Lactate 1.2 Calcium Magnesium Total Bilirubin AST ALT Alkaline Phosphatase Total Creatine Kinase CK-MB (CK-2) CK-MB (CK-2) Rel Index Troponin I B-Natriuretic Peptide Total Protein Albumin Globulin Albumin/Globulin Ratio Procalcitonin 0.21 Assessment & Plan Assessment & Plan narrative: Pao Peñaloza is a delightful 72 y.o. female with an acute CHF exacerbation who will be admitted for further work-up and management. She plans to spend the summer in [facility] and is agreeable to following up with Cardiology on an outpatient basis with the intent to establish care with one at her home community. 1. Acute CHF Exacerbation, new, present on admission with a CHADS-VASC score of 4 * She will have telemetry overnight * Echo on 08/17 * Lasix prn for shortness of breath, swelling 2. Pneumonia, improving, present on admission * Complete course of azithromycin 250 mg po daily until 08/19 * Albuterol/duonebs staggered q 4 hours prn shortness of breath * Procalcitonin in the am. 3. Essential Hypertension, stable, chronic and present on admission * Continue home dose of propranolol 80 mg po daily * Please call Cardiology on 08/17 after echo results * Aspirin 81 mg po daily 4. Hypothyroidism, stable and chronic present on admission * Continue home dose of levothyroxine 125 mcg daily 5. Urinary incontinence, stable and chronic, present on admission * Complete course of macrobid * Continue home dose of fesoterodine 8 mg po daily * She did request a Monroe placement, discussed risk of worsening her UTI and she agreed not to have one placed. Consider placement if she is urinating continiously. Patient is admitted as an inpatient as her stay is anticipated to exceed 2 midnights. FEN: IV saline lock, 2 gram sodium diet, BMP and BNP for am labs VTE Prophylaxis: enoxaparin 40 mg SubQ daily Disposition: unknown at this time, presumed to be discharged home. Code status: Full code Admission time: 90 minutes Meds reconciled: Partial based on current med list. Time Spent With Patient Time with patient: Greater than 35 minutes Scores CHADS-VASc Congestive heart failure: yes Hypertension: yes Age 75 years or older: no Diabetes mellitus: no Stroke, TIA, or TE: no Vascular disease: no Age 65 to 74 years: yes Sex category (female): Female CHADS-VASc Score: 4 Quality VTE Deep Vein Thrombosis/Pulmonary Embolism Present on Admission: No
[2018-08-17] VITALS (10 sets, daily range): BP systolic 116–138; BP diastolic 53–79; PULSE 67–72; RESP 15–20; TEMP 36.4–37; O2SAT 93–100
[2018-08-17 00:18] LABS: Troponin I < 0.012 ng/mL (0.01-0.034)
[2018-08-17 06:02] LABS: BUN Creatinine Ratio 22.5 (6-22); Blood Urea Nitrogen 18 mg/dL (7-17); Calcium 8.7 mg/dL (8.4-10.2); Carbon Dioxide 27 mmol/L (22-32); Chloride 103 mmol/L (98-107); Estimated Glomerular Filt Rate > 60.0 mL/min (>60); Glucose 167 mg/dL (80-110); HEMOLYSIS < 15 (0-50); Potassium 3.8 mmol/L (3.4-5.1); Sodium 139 mmol/L (137-145)
[2018-08-17 06:06] LABS: Troponin I < 0.012 ng/mL (0.01-0.034)
[2018-08-17 06:08] LABS: Add Manual Diff / Slide Review NO; Basophils Absolute Auto 0 /uL (0-100); Basophils Percent Auto 0.1 % (0-2); Eosinophils Absolute Auto 0 /uL (0-450); Eosinophils Percent Auto 0.1 % (2-4); Hematocrit 34.7 % (36-46); Hemoglobin 11.7 g/dL (12.0-16.0); Lymphocytes Absolute Auto 500 /uL (1100-4500); Lymphocytes Percent Auto 4.1 % (25-40); Mean Corpuscular HGB Conc 33.9 % (30-36); Mean Corpuscular Hemoglobin 31.1 PG (26-34); Mean Corpuscular Volume 91.7 fL (80-100); Monocytes Absolute Auto 300 /uL (0-900); Monocytes Percent Auto 2.6 % (3-14); Neutrophils Absolute Auto 11800 /uL (1500-7000); Neutrophils Percent Auto 93.1 % (50-75); Platelet Count 190 X10^3/uL (150-400); Red Blood Cell Count 3.78 X10^6/uL (4.0-5.2); White Blood Cell Count 12.7 X10^3/uL (4.5-11.0)
--- NOTE | 2018-08-17 06:17 | PC.NURSE ---
Denies any CP & other discomfort all night. Up ambulated to the BR. no C/O dyspnea & SOB noted. Occ. cough & sl. wheezing noted but declined any RT. treatment. States I'll be okay, will batool. POC & monitor.
[2018-08-17 06:21] LABS: B Type Natriuretic Peptide 1040 (<100)
[2018-08-17 07:05] LABS: Procalcitonin 0.35 ng/mL (<0.5)
--- NOTE | 2018-08-17 08:29 | DI.US.S_ITS ---
PROCEDURE: US PERIPH VENOUS LOW EXTREM BI INDICATIONS: SOB; CALF PAIN TECHNIQUE: Real-time imaging, as well as color and pulse Doppler interrogation, were performed of the deep veins of both legs from the inguinal ligament to the popliteal fossa. COMPARISON: None. FINDINGS: Right: The common femoral, femoral and popliteal veins are normally compressible, and free of intraluminal thrombus. Color and pulse Doppler demonstrate normal phasic intravascular flow. There is normal augmentation response to distal compression maneuver. Left: The common femoral, femoral and popliteal veins are normally compressible, and free of intraluminal thrombus. Color and pulse Doppler demonstrate normal phasic intravascular flow. There is normal augmentation response to distal compression maneuver. IMPRESSION: No DVT found. Dictated by: Billy Dash M.D. on 08/17/2018 at 10:33 Approved by: Billy Dash M.D. on 08/17/2018 at 10:33
[2018-08-17] MEDS: SODIUM CHLORIDE 0.9% FLUSH 10 ML IV ×2 (08:41→20:18)
[2018-08-17] MEDS: LEVOTHYROXINE 125 MCG TABLET PO (08:41)
[2018-08-17] MEDS: ASPIRIN EC 81 MG TABLET PO (08:41)
[2018-08-17] MEDS: FUROSEMIDE 40 MG/4 ML VIAL IV (08:41)
[2018-08-17] MEDS: LOSARTAN 50 MG TABLET PO (08:41)
[2018-08-17] MEDS: ENOXAPARIN 40 MG/0.4 ML SYRINGE SUBCUT (08:41)
[2018-08-17] MEDS: AZITHROMYCIN 250 MG TABLET PO (08:41)
[2018-08-17] MEDS: PROPRANOLOL ER 80 MG CAP.SA.24H PO (08:41)
--- NOTE | 2018-08-17 09:27 | DI.ECHO.S_ITS ---
[facility]---------+ [facility] +---------+ : : [address] : : : : [id number] : : : : Phone: [phone] Echocardiogram Report + + :Name: ALEKSEY MUHAMMAD Study Date: 08/17/2018 Height: 65 in : :[facility] Weight: 198 lb : : Gender: Female BSA: 2.0 m2 : :: 1945 Age: 72 yrs BP: 131/73 mmHg: :Reason For Study: CHF EXACERBATION : : Performed By: Chidi Chery : :Referring: HERLINDA ALBERT : + + Interpretation Summary The patient has a history of radiation treatment. Left ventricular wall thickness is borderline increased. The ejection fraction is estimated to be 50-55%. There is apical septal wall hypokinesis. There is apical hypokinesis. There is moderate mitral regurgitation. There is mild to moderate aortic regurgitation. There is moderate to severe tricuspid regurgitation. The right ventricular systolic pressure is estimated to be at least 49 mmHg based on an estimated right atrial pressure of 15 mm Hg. Procedure: A two-dimensional transthoracic echocardiogram with color flow and Doppler was performed. The study quality was technically adequate. Images from the parasternal window were difficult to obtain and are suboptimal in quality. There is no prior echocardiogram noted for this patient. The patient was in normal sinus rhythm during the exam. Left Ventricle: The left ventricle is normal in size. Left ventricular wall thickness is borderline increased. There is no echo evidence for significant left ventricular outflow tract obstruction. The ejection fraction is estimated to be 50-55%. There is apical septal wall hypokinesis. There is apical hypokinesis. Right Ventricle: The right ventricle is normal in size and function. Atria: The left atrium is moderately dilated. The right atrium is mildly dilated. The interatrial septum is intact with no evidence for an atrial septal defect. Mitral Valve: The mitral valve leaflets appear to open well. There is moderate mitral regurgitation. Aortic Valve: The aortic valve is not well visualized. There is no aortic valve stenosis. There is mild to moderate aortic regurgitation. Tricuspid Valve: The tricuspid valve leaflets are thin and pliable. There is moderate to severe tricuspid regurgitation. The right ventricular systolic pressure is estimated to be at least 49 mmHg based on an estimated right atrial pressure of 15 mm Hg. Pulmonic Valve: The pulmonic valve is not well visualized. Great Vessels: The aortic root is normal size. The ascending aorta could not be visualized. The pulmonary artery is normal size. The IVC is dilated (diameter is greater than 2.1 cm) and it collapses less than 50% with a sniff. This suggests a high right atrial pressure of 15 mm Hg. Pericardium/ Pleura There is no pericardial effusion. There is no pleural effusion. MMode/2D Measurements & Calculations LVIDd: 5.6 cm LVOT diam: 2.1 cm LVIDs: 3.5 cm Ao root diam: 2.8 cm FS: 37.2 % EPSS: 0.34 cm IVSd: 1.1 cm LVPWd: 0.78 cm LV freedman. diameter/BSA (cm/m^2): 2.8 LV sys. diameter/BSA (cm/m^2): 1.8 LA A2 area: 23.6 cm2 RA long axis: 5.4 cm LA A4 area: 28.5 cm2 RA area: 20.2 cm2 LA length (vol): 6.5 cm RA vol: 63.6 ml LA vol: 87.5 ml RA : 32.3 ml/m2 LA vol index: 44.4 ml/m2 IVC diam: 2.4 cm Doppler Measurements & Calculations Ao V2 max: 184.3 cm/sec LVOT Max Brady: 141.9 cm/sec Ao V2 mean: 142.8 cm/sec LV V1 max P.0 mmHg Ao max P.6 mmHg LV V1 VTI: 33.2 cm Ao mean P.7 mmHg ATUL(I,D): 2.7 cm2 Ao V2 VTI: 41.2 cm ATUL(V,D): 2.6 cm2 sev ratio: 0.81 ATUL indexed to BSA (cm^2/m^2): 1.4 AI P1/2t: 497.9 msec AI dec slope: 243.2 cm/sec2 MV E max brady: 158.0 cm/sec TR max brady: 291.1 cm/sec MV A max brady: 125.4 cm/sec TR max P.9 mmHg MV E/A: 1.3 PA V2 max: 112.0 cm/sec Med Peak E' Brady: 4.9 cm/sec PA V2 mean: 79.8 cm/sec E/E' med: 32.6 PA mean P.7 mmHg Lat Peak E' Brady: 5.5 cm/sec PA pr(Accel): 51.6 mmHg E/E' lat: 28.9 PA Accel Time: 0.05 sec E/e' average: 30.7 MV dec time: 0.20 sec MVA(VTI): 2.6 cm2 MV V2 mean: 115.1 cm/sec SV(LVOT): 111.6 ml MV mean P.6 mmHg MV V2 VTI: 42.1 cm Reading Physician:03:38 PM
--- NOTE | 2018-08-17 10:27 | CM.DANOTE ---
Patient is a 72 year old female who was admitted on 08/16/18 for SOB. Pt has M[place] and [place] for insurance and her PCP is not local. EMR was reviewed. Per MD, pt with possible CHF and pneumonia with possible need for further imaging to determine if any further medical conditions present. Pt not medically stable for d/c yet today. SW met bedside with pt and explained role and updated white board and pt confirmed that her permanent address is [place] with her but that they are spending the Summer around the [facility] [place] their [place]. Pt is typically Independent with ADL's at baseline and does not have any supportive services in place. Pt states that she believes her is her DPOA. Pt states she has been somewhat declining in health over the past week and recently only had enough energy to mostly stay in bed. Her adult Dtr Chika, who is a Physician's Jewelry Appraiser in [place], and family came out to visit the pt on their boat a couple days ago and encouraged pt to go to the [facility] clinic on Tuesday and then come to the ER at [facility] when she was not improving. Pt states her Dtr plans to stay a little longer for her vacation visit before returning to work in [place]. Pt's spouse is available for assist at d/c and preference is to d/c back to their boat if possible. Pt states she has a hx of HH in [place] once that she only needed for a few visits but denies any hx of SNF. SW needs unclear at this time. Plan: SW to follow for d/c planning needs and to determine if return to their boat is a safe plan at time of discharge and any further identified discharge planning needs. CHIDI Pimentel Discharge Planning/Care Management CM Discharge Assessment Start: 08/17/18 10:26 Freq: Status: Active Protocol: Document 08/17/18 10:26 BF (Rec: 08/17/18 10:27 BF [id number]) Discharge Planning Assessment Assigned Hand Tennis Ball Coverer CHIDI Saavedra DPOA/Assigned Designee Name spouse Advance Directives? No Advance Directives on File No History Provided By Patient Medical Record Has Patient been admitted in last 30 No days? Prior Living Arrangements House Household Members spouse Type of transporation used prior to Drives own vehicle admit Independent with ADL's Yes Is patient alert and oriented? Yes Caregiver for Another No Comment Likely home pending progress Barriers to Discharge No Discharge Plan Home Transportation Arrangement Spouse can likely provide transport at d/c Referrals Initiated None needed Whiteboard Updated in Patient Room with Yes name and ext. # of Hand Tennis Ball Coverer Review Status In Process Please Provide Date Initial DC 08/17/18 Assessment Was Performed Next Review Type Continued Stay Review
--- NOTE | 2018-08-17 13:02 | PM.PN.1 ---
Subjective Date Patient Seen: 08/17/18 Interval history: Pao Peñaloza is a 72-year-old female with a past medical history significant for hypertension, left bundle branch block, hypothyroidism, breast cancer status post lumpectomy, chemo and radiation thought to be in remission, and urinary incontinence who presented with progressive worsening shortness of breath, cough, and pleuritic chest pain. The patient is resting in bed comfortably. She is eager to go home as she has expected company and a dinner libertarian tonight. However, she is reasonable and understands the need to have her possibly hospitalized for several days pending workup and treatment. She endorses dry minimally productive cough, rhinitis and nasal congestion. She has intermittent cough paroxysms that seem to be somewhat bronchospastic in quality with end-expiratory wheezing. She believes her shortness of breath has improved. She has mild splinting due to pleuritic chest pain with coughing. She reports she had a rough evening the previous night. She currently denies headache, sore throat, chest pain, abdominal pain, nausea, vomiting, fever, chills, dysuria, diarrhea or constipation. She is voiding and eliminating without difficulty. She is up ambulating without assistance. Exam Vital Signs (past 8 hours): - 08/17/18 10:30 08/17/18 13:08 08/17/18 15:09 Temperature 98.2 F Pulse Rate 69 67 Respiratory Rate 16 15 Blood Pressure 132/69 Pulse Oximetry 93 96 96 08/17/18 15:15 Temperature 98.6 F Pulse Rate 68 Respiratory Rate 18 Blood Pressure 127/60 Pulse Oximetry 100 Oxygen Delivery Method Room Air Oxygen Flow Rate 0 Narrative Exam Narrative: General: Elderly female sitting in bed and in no acute distress, well-developed, well-nourished, emotionally labile at times but appropriately interactive. HEENT: Normocephalic, atraumatic. External ears without defect. Pupils equal, round, and reactive to light. Anicteric sclerae, moist conjunctivae, and no lid lag. Oropharynx free of erythema and cobble stoning with moist mucosa. Neck: Supple with full range of motion. No jugular venous distension. No lymphadenopathy or thyromegaly. Cardiovascular: Regular rate and rhythm without murmurs, rubs, or gallops appreciated. Pulmonary: Clear to auscultation bilaterally with bibasilar crackles and occasional end expiratory wheeze. No rhonchi. Respiratory effort shallow due to splinitng related to pleuritic chest pain without use of accessory muscles. Abdomen: Soft, bowel sounds present, nontender, nondistended. No hepatosplenomegaly or masses appreciated. Extremities: No clubbing or cyanosis. Mild pitting edema to pretibial area bilaterally. Skin: Normal temperature, turgor, and texture; no rash, ulcers, or subcutaneous nodules appreciated. Neurological: Cranial nerves grossly intact. Psychiatric: Depressed mood with emotional lability and normal affect. Alert and oriented to person, place, and time. Objective Labs Result Diagrams: 08/17/18 05:17 08/17/18 05:17 Labs: Laboratory Results - last 24 hr 08/16/18 08/16/18 08/16/18 17:43 17:43 17:43 WBC 14.4 H RBC 3.90 L Hgb 12.1 Hct 35.7 L MCV 91.7 MCH 31.0 MCHC 33.8 RDW 14.3 Plt Count 197 Neut % (Auto) 87.4 H Lymph % (Auto) 2.9 L [place] % (Auto) 6.2 Eos % (Auto) 3.2 Baso % (Auto) 0.3 Neut # (Auto) 32081 H Lymph # (Auto) 400 L [place] # (Auto) 900 Eos # (Auto) 500 H Baso # (Auto) 0 PT 14.0 H INR 1.2 APTT 28 Sodium 141 Potassium 4.1 Chloride 107 Carbon Dioxide 24 BUN 20 H Creatinine 0.90 Estimated GFR > 60.0 BUN/Creatinine Ratio 22.2 H Glucose 129 H Lactate Calcium 8.8 Magnesium 1.8 Total Bilirubin 1.0 AST 57 H ALT 44 Alkaline Phosphatase 115 Total Creatine Kinase 66 CK-MB (CK-2) TNP CK-MB (CK-2) Rel Index TNP Troponin I 0.013 B-Natriuretic Peptide 963 H Total Protein 6.8 Albumin 3.7 Globulin 3.1 Albumin/Globulin Ratio 1.2 Procalcitonin Urine Color Urine Appearance Urine pH Ur Specific [place] Urine Protein Urine Glucose (UA) Urine Ketones Urine Occult Blood Urine Nitrate Urine Bilirubin Urine Urobilinogen Ur Leukocyte Esterase Urine RBC Urine WBC Urine Bacteria Ur Culture Indicated? Chlamy pneumoniae PCR Adenovirus (PCR) B.parapertussis DNA PCR Coronavirus OC43 (PCR) Coronavirus HKU1 (PCR) Coronavirus 229E (PCR) Coronavirus NL63 (PCR) Human Metapneumovir PCR Influenza Type A (PCR) Influenza Type B (PCR) M. pneumoniae (PCR) Parainfluenza 1 (PCR) Parainfluenza 2 (PCR) Parainfluenza 3 (PCR) Parainfluenza 4 (PCR) RSV (PCR) Entero/Rhino (PCR) 08/16/18 08/16/18 08/16/18 17:43 17:43 22:45 WBC RBC Hgb Hct MCV MCH MCHC RDW Plt Count Neut % (Auto) Lymph % (Auto) [place] % (Auto) Eos % (Auto) Baso % (Auto) Neut # (Auto) Lymph # (Auto) [place] # (Auto) Eos # (Auto) Baso # (Auto) PT INR APTT Sodium Potassium Chloride Carbon Dioxide BUN Creatinine Estimated GFR BUN/Creatinine Ratio Glucose Lactate 1.2 Calcium Magnesium Total Bilirubin AST ALT Alkaline Phosphatase Total Creatine Kinase CK-MB (CK-2) CK-MB (CK-2) Rel Index Troponin I B-Natriuretic Peptide Total Protein Albumin Globulin Albumin/Globulin Ratio Procalcitonin 0.21 Urine Color Yellow Urine Appearance Clear Urine pH 5.0 Ur Specific Byron 1.015 Urine Protein Negative Urine Glucose (UA) Negative Urine Ketones Negative Urine Occult Blood Negative Urine Nitrate Negative Urine Bilirubin Negative Urine Urobilinogen 0.2 Ur Leukocyte Esterase Negative Urine RBC None seen Urine WBC 0-1/hpf Urine Bacteria None seen Ur Culture Indicated? Cult not indicated Chlamy pneumoniae PCR Adenovirus (PCR) B.parapertussis DNA PCR Coronavirus OC43 (PCR) Coronavirus HKU1 (PCR) Coronavirus 229E (PCR) Coronavirus NL63 (PCR) Human Metapneumovir PCR Influenza Type A (PCR) Influenza Type B (PCR) M. pneumoniae (PCR) Parainfluenza 1 (PCR) Parainfluenza 2 (PCR) Parainfluenza 3 (PCR) Parainfluenza 4 (PCR) RSV (PCR) Entero/Rhino (PCR) 08/16/18 08/17/18 08/17/18 23:49 05:17 05:17 WBC 12.7 H RBC 3.78 L Hgb 11.7 L Hct 34.7 L MCV 91.7 MCH 31.1 MCHC 33.9 RDW 14.0 Plt Count 190 Neut % (Auto) 93.1 H Lymph % (Auto) 4.1 L [place] % (Auto) 2.6 L Eos % (Auto) 0.1 L Baso % (Auto) 0.1 Neut # (Auto) 98063 H Lymph # (Auto) 500 L [place] # (Auto) 300 Eos # (Auto) 0 Baso # (Auto) 0 PT INR APTT Sodium 139 Potassium 3.8 Chloride 103 Carbon Dioxide 27 BUN 18 H Creatinine 0.80 Estimated GFR > 60.0 BUN/Creatinine Ratio 22.5 H Glucose 167 H Lactate Calcium 8.7 Magnesium Total Bilirubin AST ALT Alkaline Phosphatase Total Creatine Kinase CK-MB (CK-2) CK-MB (CK-2) Rel Index Troponin I < 0.012 B-Natriuretic Peptide 1040 H Total Protein Albumin Globulin Albumin/Globulin Ratio Procalcitonin Urine Color Urine Appearance Urine pH Ur Specific [place] Urine Protein Urine Glucose (UA) Urine Ketones Urine Occult Blood Urine Nitrate Urine Bilirubin Urine Urobilinogen Ur Leukocyte Esterase Urine RBC Urine WBC Urine Bacteria Ur Culture Indicated? Chlamy pneumoniae PCR Adenovirus (PCR) B.parapertussis DNA PCR Coronavirus OC43 (PCR) Coronavirus HKU1 (PCR) Coronavirus 229E (PCR) Coronavirus NL63 (PCR) Human Metapneumovir PCR Influenza Type A (PCR) Influenza Type B (PCR) M. pneumoniae (PCR) Parainfluenza 1 (PCR) Parainfluenza 2 (PCR) Parainfluenza 3 (PCR) Parainfluenza 4 (PCR) RSV (PCR) Entero/Rhino (PCR) 08/17/18 08/17/18 08/17/18 05:17 05:17 05:17 WBC RBC Hgb Hct MCV MCH MCHC RDW Plt Count Neut % (Auto) Lymph % (Auto) [place] % (Auto) Eos % (Auto) Baso % (Auto) Neut # (Auto) Lymph # (Auto) [place] # (Auto) Eos # (Auto) Baso # (Auto) PT INR APTT Sodium Potassium Chloride Carbon Dioxide BUN Creatinine Estimated GFR BUN/Creatinine Ratio Glucose Lactate Calcium Magnesium 2.0 Total Bilirubin AST ALT Alkaline Phosphatase Total Creatine Kinase CK-MB (CK-2) CK-MB (CK-2) Rel Index Troponin I < 0.012 B-Natriuretic Peptide Total Protein Albumin Globulin Albumin/Globulin Ratio Procalcitonin 0.35 Urine Color Urine Appearance Urine pH Ur Specific [place] Urine Protein Urine Glucose (UA) Urine Ketones Urine Occult Blood Urine Nitrate Urine Bilirubin Urine Urobilinogen Ur Leukocyte Esterase Urine RBC Urine WBC Urine Bacteria Ur Culture Indicated? Chlamy pneumoniae PCR Adenovirus (PCR) B.parapertussis DNA PCR Coronavirus OC43 (PCR) Coronavirus HKU1 (PCR) Coronavirus 229E (PCR) Coronavirus NL63 (PCR) Human Metapneumovir PCR Influenza Type A (PCR) Influenza Type B (PCR) M. pneumoniae (PCR) Parainfluenza 1 (PCR) Parainfluenza 2 (PCR) Parainfluenza 3 (PCR) Parainfluenza 4 (PCR) RSV (PCR) Entero/Rhino (PCR) 08/17/18 15:24 WBC RBC Hgb Hct MCV MCH MCHC RDW Plt Count Neut % (Auto) Lymph % (Auto) [place] % (Auto) Eos % (Auto) Baso % (Auto) Neut # (Auto) Lymph # (Auto) [place] # (Auto) Eos # (Auto) Baso # (Auto) PT INR APTT Sodium Potassium Chloride Carbon Dioxide BUN Creatinine Estimated GFR BUN/Creatinine Ratio Glucose Lactate Calcium Magnesium Total Bilirubin AST ALT Alkaline Phosphatase Total Creatine Kinase CK-MB (CK-2) CK-MB (CK-2) Rel Index Troponin I B-Natriuretic Peptide Total Protein Albumin Globulin Albumin/Globulin Ratio Procalcitonin Urine Color Urine Appearance Urine pH Ur Specific [place] Urine Protein Urine Glucose (UA) Urine Ketones Urine Occult Blood Urine Nitrate Urine Bilirubin Urine Urobilinogen Ur Leukocyte Esterase Urine RBC Urine WBC Urine Bacteria Ur Culture Indicated? Chlamy pneumoniae PCR Not detected Adenovirus (PCR) Not detected B.parapertussis DNA PCR Not detected Coronavirus OC43 (PCR) Not detected Coronavirus HKU1 (PCR) Not detected Coronavirus 229E (PCR) Not detected Coronavirus NL63 (PCR) Not detected Human Metapneumovir PCR Not detected Influenza Type A (PCR) Not detected Influenza Type B (PCR) Not detected M. pneumoniae (PCR) Not detected Parainfluenza 1 (PCR) Not detected Parainfluenza 2 (PCR) Not detected Parainfluenza 3 (PCR) Not detected Parainfluenza 4 (PCR) Not detected RSV (PCR) Not detected Entero/Rhino (PCR) Not detected Assessment & Plan Assessment & Plan narrative: Pao Peñaloza is a 72-year-old female with a past medical history significant for hypertension, left bundle branch block, hypothyroidism, breast cancer status post lumpectomy, chemo and radiation thought to be in remission, and urinary incontinence who presented with progressive worsening shortness of breath, cough, and pleuritic chest pain. 1. Probable acute CHF exacerbation, new diagnosis, present on admission. Active. -Patient presented with progressive worsening shortness of breath, nonproductive dry cough, pleuritic chest pain and worsening lower extremity edema. -BNP 963. -Serial troponin x3 negative. -Chest x-ray demonstrated cardiomegaly with mild left effusion and increased vascularity suggestive of edema. CTA chest demonstrated mild bilateral pleural effusions. -Ordered echocardiogram, pending. -Received Lasix 40 mg IV x1 in the ED. Continue Lasix 40 mg IV daily. Replete electrolytes as needed. Goal K > 4.0 and Mg > 2.0. -Continue to monitor closely on telemetry while diuresing. -Monitor strict I&Os and daily weight. -Continue heart healthy and low-sodium diet. Placed patient on 2 L fluid restriction -Will provide CHF teaching pending echo results. 2. Acute community-acquired bacterial pneumonia, present on admission. Active. -Chest x-ray demonstrated patchy retrocardiac opacity possibly hospital insurance representative of pneumonia. -CTA chest demonstrated non-specific bilateral subcentimeter pulmonary nodules likely hospital insurance representative of resolving pneumonia. Recommend follow-up CT in 3-6 months to ensure resolution. Negative for PE. -Ordered complete pneumonia workup including: Respiratory viral PCR negative. Strep pneumoniae and Legionella urine antigens, pending. Sputum culture not yet collected. Blood cultures x2 have no growth to date. -Venous Doppler ultrasound of bilateral lower extremities negative for DVT. -Continue outpatient course of azithromycin 250 mg daily for 2 additional doses to complete course. Depending on infectious workup and if trends of infectious markers worsening will consider adding additional broad-spectrum coverage with ceftriaxone. -Consulted respiratory therapy for evaluation and treatment. Continue DuoNeb every 4 hours while awake and albuterol nebs every 6 hours as needed for shortness of breath. May use supplemental oxygen if necessary to maintain oxygen saturation 88%. -Continue conservative treatment including Mucinex 1200 mg twice daily for mucolytic effect and Sudafed 60 mg every 6 hours as needed for congestion. 3. Hypertension, chronic, present on admission. Stable. -Continue home propranolol 80 mg daily and aspirin 81 mg. 4. Hypothyroidism, chronic, present on admission. Presumed stable. -Ordered TSH with reflex, pending. -Continue home levothyroxine 125 mcg daily. 5. Urinary incontinence, chronic, present on admission. Stable. -Completed course of macrobid for possible cystitis. -Continue homefesoterodine 8 mg po daily -She did request a [place] placement initially. Discussed risk of worsening her UTI and she agreed not to have one placed for now. Consider placement only if she is urinating continiously. Disposition: Likely to discharge home in several days depending on workup and treatment of above. Quality VTE Deep Vein Thrombosis/Pulmonary Embolism Present on Admission: No
[2018-08-17] MEDS: ALBUTEROL/IPRATROPIUM 3 ML AMPUL INH (15:09)
[2018-08-17 16:45] LABS: Adenovirus Not Detected (Not Detect); Bordetella pertussis Not Detected (Not Detect); Chlamydophila pneumoniae Not Detected (Not Detect); Coronavirus 229E Not Detected (Not Detect); Coronavirus HKU1 Not Detected (Not Detect); Coronavirus NL 63 Not Detected (Not Detect); Coronavirus OC43 Not Detected (Not Detect); Human Metapneumovirus Not Detected (Not Detect); Human Rhinovirus/Enterovirus Not Detected (Not Detect); Influenza A Not Detected (Not Detect); Influenza B Not Detected (Not Detect); Mycoplasma pneumoniae Not Detected (Not Detect); Parainfluenza Virus 1 Not Detected (Not Detect); Parainfluenza Virus 2 Not Detected (Not Detect); Parainfluenza Virus 3 Not Detected (Not Detect); Parainfluenza Virus 4 Not Detected (Not Detect); Respiratory Syncytial Virus Not Detected (Not Detect)
--- NOTE | 2018-08-17 17:09 | P.PN_ITS ---
Subjective Date Patient Seen: 08/17/18 Interval history: Poa Peñaloza is a 72-year-old female with a past medical history significant for hypertension, left bundle branch block, hypothyroidism, breast cancer status post lumpectomy, chemo and radiation thought to be in remission, and urinary incontinence who presented with progressive worsening shortness of breath, cough, and pleuritic chest pain. The patient is resting in bed comfortably. She is eager to go home as she has expected company and a dinner green party tonight. However, she is reasonable and understands the need to have her possibly hospitalized for several days pending workup and treatment. She endorses dry minimally productive cough, rhinitis and nasal congestion. She has intermittent cough paroxysms that seem to be somewhat bronchospastic in quality with end-expiratory wheezing. She believes her shortness of breath has improved. She has mild splinting due to pleuritic chest pain with coughing. She reports she had a rough evening the previous night. She currently denies headache, sore throat, chest pain, abdominal pain, nausea, vomiting, fever, chills, dysuria, diarrhea or constipation. She is voiding and eliminating without difficulty. She is up ambulating without assistance. Exam Vital Signs (past 8 hours): - 08/17/18 10:30 08/17/18 13:08 08/17/18 15:09 Temperature 98.2 F Pulse Rate 69 67 Respiratory Rate 16 15 Blood Pressure 132/69 Pulse Oximetry 93 96 96 08/17/18 15:15 Temperature 98.6 F Pulse Rate 68 Respiratory Rate 18 Blood Pressure 127/60 Pulse Oximetry 100 Oxygen Delivery Method Room Air Oxygen Flow Rate 0 Narrative Exam Narrative: General: Elderly female sitting in bed and in no acute distress, well-developed, well-nourished, emotionally labile at times but appropriately interactive. HEENT: Normocephalic, atraumatic. External ears without defect. Pupils equal, round, and reactive to light. Anicteric sclerae, moist conjunctivae, and no lid lag. Oropharynx free of erythema and cobble stoning with moist mucosa. Neck: Supple with full range of motion. No jugular venous distension. No lymphadenopathy or thyromegaly. Cardiovascular: Regular rate and rhythm without murmurs, rubs, or gallops appreciated. Pulmonary: Clear to auscultation bilaterally with bibasilar crackles and occasional end expiratory wheeze. No rhonchi. Respiratory effort shallow due to splinitng related to pleuritic chest pain without use of accessory muscles. Abdomen: Soft, bowel sounds present, nontender, nondistended. No hepatosplenomegaly or masses appreciated. Extremities: No clubbing or cyanosis. Mild pitting edema to pretibial area bilaterally. Skin: Normal temperature, turgor, and texture; no rash, ulcers, or subcutaneous nodules appreciated. Neurological: Cranial nerves grossly intact. Psychiatric: Depressed mood with emotional lability and normal affect. Alert and oriented to person, place, and time. Objective Labs Result Diagrams: 08/17/18 05:17 08/17/18 05:17 Labs: Laboratory Results - last 24 hr 08/16/18 08/16/18 08/16/18 17:43 17:43 17:43 WBC 14.4 H RBC 3.90 L Hgb 12.1 Hct 35.7 L MCV 91.7 MCH 31.0 MCHC 33.8 RDW 14.3 Plt Count 197 Neut % (Auto) 87.4 H Lymph % (Auto) 2.9 L [place] % (Auto) 6.2 Eos % (Auto) 3.2 Baso % (Auto) 0.3 Neut # (Auto) 28581 H Lymph # (Auto) 400 L [place] # (Auto) 900 Eos # (Auto) 500 H Baso # (Auto) 0 PT 14.0 H INR 1.2 APTT 28 Sodium 141 Potassium 4.1 Chloride 107 Carbon Dioxide 24 BUN 20 H Creatinine 0.90 Estimated GFR > 60.0 BUN/Creatinine Ratio 22.2 H Glucose 129 H Lactate Calcium 8.8 Magnesium 1.8 Total Bilirubin 1.0 AST 57 H ALT 44 Alkaline Phosphatase 115 Total Creatine Kinase 66 CK-MB (CK-2) TNP CK-MB (CK-2) Rel Index TNP Troponin I 0.013 B-Natriuretic Peptide 963 H Total Protein 6.8 Albumin 3.7 Globulin 3.1 Albumin/Globulin Ratio 1.2 Procalcitonin Urine Color Urine Appearance Urine pH Ur Specific [place] Urine Protein Urine Glucose (UA) Urine Ketones Urine Occult Blood Urine Nitrate Urine Bilirubin Urine Urobilinogen Ur Leukocyte Esterase Urine RBC Urine WBC Urine Bacteria Ur Culture Indicated? Chlamy pneumoniae PCR Adenovirus (PCR) B.parapertussis DNA PCR Coronavirus OC43 (PCR) Coronavirus HKU1 (PCR) Coronavirus 229E (PCR) Coronavirus NL63 (PCR) Human Metapneumovir PCR Influenza Type A (PCR) Influenza Type B (PCR) M. pneumoniae (PCR) Parainfluenza 1 (PCR) Parainfluenza 2 (PCR) Parainfluenza 3 (PCR) Parainfluenza 4 (PCR) RSV (PCR) Entero/Rhino (PCR) 08/16/18 08/16/18 08/16/18 17:43 17:43 22:45 WBC RBC Hgb Hct MCV MCH MCHC RDW Plt Count Neut % (Auto) Lymph % (Auto) [place] % (Auto) Eos % (Auto) Baso % (Auto) Neut # (Auto) Lymph # (Auto) [place] # (Auto) Eos # (Auto) Baso # (Auto) PT INR APTT Sodium Potassium Chloride Carbon Dioxide BUN Creatinine Estimated GFR BUN/Creatinine Ratio Glucose Lactate 1.2 Calcium Magnesium Total Bilirubin AST ALT Alkaline Phosphatase Total Creatine Kinase CK-MB (CK-2) CK-MB (CK-2) Rel Index Troponin I B-Natriuretic Peptide Total Protein Albumin Globulin Albumin/Globulin Ratio Procalcitonin 0.21 Urine Color Yellow Urine Appearance Clear Urine pH 5.0 Ur Specific [place] 1.015 Urine Protein Negative Urine Glucose (UA) Negative Urine Ketones Negative Urine Occult Blood Negative Urine Nitrate Negative Urine Bilirubin Negative Urine Urobilinogen 0.2 Ur Leukocyte Esterase Negative Urine RBC None seen Urine WBC 0-1/hpf Urine Bacteria None seen Ur Culture Indicated? Cult not indicated Chlamy pneumoniae PCR Adenovirus (PCR) B.parapertussis DNA PCR Coronavirus OC43 (PCR) Coronavirus HKU1 (PCR) Coronavirus 229E (PCR) Coronavirus NL63 (PCR) Human Metapneumovir PCR Influenza Type A (PCR) Influenza Type B (PCR) M. pneumoniae (PCR) Parainfluenza 1 (PCR) Parainfluenza 2 (PCR) Parainfluenza 3 (PCR) Parainfluenza 4 (PCR) RSV (PCR) Entero/Rhino (PCR) 08/16/18 08/17/18 08/17/18 23:49 05:17 05:17 WBC 12.7 H RBC 3.78 L Hgb 11.7 L Hct 34.7 L MCV 91.7 MCH 31.1 MCHC 33.9 RDW 14.0 Plt Count 190 Neut % (Auto) 93.1 H Lymph % (Auto) 4.1 L [place] % (Auto) 2.6 L Eos % (Auto) 0.1 L Baso % (Auto) 0.1 Neut # (Auto) 87874 H Lymph # (Auto) 500 L [place] # (Auto) 300 Eos # (Auto) 0 Baso # (Auto) 0 PT INR APTT Sodium 139 Potassium 3.8 Chloride 103 Carbon Dioxide 27 BUN 18 H Creatinine 0.80 Estimated GFR > 60.0 BUN/Creatinine Ratio 22.5 H Glucose 167 H Lactate Calcium 8.7 Magnesium Total Bilirubin AST ALT Alkaline Phosphatase Total Creatine Kinase CK-MB (CK-2) CK-MB (CK-2) Rel Index Troponin I < 0.012 B-Natriuretic Peptide 1040 H Total Protein Albumin Globulin Albumin/Globulin Ratio Procalcitonin Urine Color Urine Appearance Urine pH Ur Specific [place] Urine Protein Urine Glucose (UA) Urine Ketones Urine Occult Blood Urine Nitrate Urine Bilirubin Urine Urobilinogen Ur Leukocyte Esterase Urine RBC Urine WBC Urine Bacteria Ur Culture Indicated? Chlamy pneumoniae PCR Adenovirus (PCR) B.parapertussis DNA PCR Coronavirus OC43 (PCR) Coronavirus HKU1 (PCR) Coronavirus 229E (PCR) Coronavirus NL63 (PCR) Human Metapneumovir PCR Influenza Type A (PCR) Influenza Type B (PCR) M. pneumoniae (PCR) Parainfluenza 1 (PCR) Parainfluenza 2 (PCR) Parainfluenza 3 (PCR) Parainfluenza 4 (PCR) RSV (PCR) Entero/Rhino (PCR) 08/17/18 08/17/18 08/17/18 05:17 05:17 05:17 WBC RBC Hgb Hct MCV MCH MCHC RDW Plt Count Neut % (Auto) Lymph % (Auto) [place] % (Auto) Eos % (Auto) Baso % (Auto) Neut # (Auto) Lymph # (Auto) [place] # (Auto) Eos # (Auto) Baso # (Auto) PT INR APTT Sodium Potassium Chloride Carbon Dioxide BUN Creatinine Estimated GFR BUN/Creatinine Ratio Glucose Lactate Calcium Magnesium 2.0 Total Bilirubin AST ALT Alkaline Phosphatase Total Creatine Kinase CK-MB (CK-2) CK-MB (CK-2) Rel Index Troponin I < 0.012 B-Natriuretic Peptide Total Protein Albumin Globulin Albumin/Globulin Ratio Procalcitonin 0.35 Urine Color Urine Appearance Urine pH Ur Specific [place] Urine Protein Urine Glucose (UA) Urine Ketones Urine Occult Blood Urine Nitrate Urine Bilirubin Urine Urobilinogen Ur Leukocyte Esterase Urine RBC Urine WBC Urine Bacteria Ur Culture Indicated? Chlamy pneumoniae PCR Adenovirus (PCR) B.parapertussis DNA PCR Coronavirus OC43 (PCR) Coronavirus HKU1 (PCR) Coronavirus 229E (PCR) Coronavirus NL63 (PCR) Human Metapneumovir PCR Influenza Type A (PCR) Influenza Type B (PCR) M. pneumoniae (PCR) Parainfluenza 1 (PCR) Parainfluenza 2 (PCR) Parainfluenza 3 (PCR) Parainfluenza 4 (PCR) RSV (PCR) Entero/Rhino (PCR) 08/17/18 15:24 WBC RBC Hgb Hct MCV MCH MCHC RDW Plt Count Neut % (Auto) Lymph % (Auto) [place] % (Auto) Eos % (Auto) Baso % (Auto) Neut # (Auto) Lymph # (Auto) [place] # (Auto) Eos # (Auto) Baso # (Auto) PT INR APTT Sodium Potassium Chloride Carbon Dioxide BUN Creatinine Estimated GFR BUN/Creatinine Ratio Glucose Lactate Calcium Magnesium Total Bilirubin AST ALT Alkaline Phosphatase Total Creatine Kinase CK-MB (CK-2) CK-MB (CK-2) Rel Index Troponin I B-Natriuretic Peptide Total Protein Albumin Globulin Albumin/Globulin Ratio Procalcitonin Urine Color Urine Appearance Urine pH Ur Specific [place] Urine Protein Urine Glucose (UA) Urine Ketones Urine Occult Blood Urine Nitrate Urine Bilirubin Urine Urobilinogen Ur Leukocyte Esterase Urine RBC Urine WBC Urine Bacteria Ur Culture Indicated? Chlamy pneumoniae PCR Not detected Adenovirus (PCR) Not detected B.parapertussis DNA PCR Not detected Coronavirus OC43 (PCR) Not detected Coronavirus HKU1 (PCR) Not detected Coronavirus 229E (PCR) Not detected Coronavirus NL63 (PCR) Not detected Human Metapneumovir PCR Not detected Influenza Type A (PCR) Not detected Influenza Type B (PCR) Not detected M. pneumoniae (PCR) Not detected Parainfluenza 1 (PCR) Not detected Parainfluenza 2 (PCR) Not detected Parainfluenza 3 (PCR) Not detected Parainfluenza 4 (PCR) Not detected RSV (PCR) Not detected Entero/Rhino (PCR) Not detected Assessment & Plan Assessment & Plan narrative: Pao Peñaloza is a 72-year-old female with a past medical history significant for hypertension, left bundle branch block, hypothyroidism, breast cancer status post lumpectomy, chemo and radiation thought to be in remission, and urinary incontinence who presented with progressive worsening shortness of breath, cough, and pleuritic chest pain. 1. Probable acute CHF exacerbation, new diagnosis, present on admission. Active. -Patient presented with progressive worsening shortness of breath, nonproductive dry cough, pleuritic chest pain and worsening lower extremity edema. -BNP 963. -Serial troponin x3 negative. -Chest x-ray demonstrated cardiomegaly with mild left effusion and increased vascularity suggestive of edema. CTA chest demonstrated mild bilateral pleural effusions. -Ordered echocardiogram, pending. -Received Lasix 40 mg IV x1 in the ED. Continue Lasix 40 mg IV daily. Replete electrolytes as needed. Goal K > 4.0 and Mg > 2.0. -Continue to monitor closely on telemetry while diuresing. -Monitor strict I&Os and daily weight. -Continue heart healthy and low-sodium diet. Placed patient on 2 L fluid restriction -Will provide CHF teaching pending echo results. 2. Acute community-acquired bacterial pneumonia, present on admission. Active. -Chest x-ray demonstrated patchy retrocardiac opacity possibly national account representative of pneumonia. -CTA chest demonstrated non-specific bilateral subcentimeter pulmonary nodules likely national account representative of resolving pneumonia. Recommend follow-up CT in 3-6 months to ensure resolution. Negative for PE. -Ordered complete pneumonia workup including: Respiratory viral PCR negative. Strep pneumoniae and Legionella urine antigens, pending. Sputum culture not yet collected. Blood cultures x2 have no growth to date. -Venous Doppler ultrasound of bilateral lower extremities negative for DVT. -Continue outpatient course of azithromycin 250 mg daily for 2 additional doses to complete course. Depending on infectious workup and if trends of infectious markers worsening will consider adding additional broad-spectrum coverage with ceftriaxone. -Consulted respiratory therapy for evaluation and treatment. Continue DuoNeb every 4 hours while awake and albuterol nebs every 6 hours as needed for shortness of breath. May use supplemental oxygen if necessary to maintain oxygen saturation 88%. -Continue conservative treatment including Mucinex 1200 mg twice daily for mucolytic effect and Sudafed 60 mg every 6 hours as needed for congestion. 3. Hypertension, chronic, present on admission. Stable. -Continue home propranolol 80 mg daily and aspirin 81 mg. 4. Hypothyroidism, chronic, present on admission. Presumed stable. -Ordered TSH with reflex, pending. -Continue home levothyroxine 125 mcg daily. 5. Urinary incontinence, chronic, present on admission. Stable. -Completed course of macrobid for possible cystitis. -Continue homefesoterodine 8 mg po daily -She did request a [place] placement initially. Discussed risk of worsening her UTI and she agreed not to have one placed for now. Consider placement only if she is urinating continiously. Disposition: Likely to discharge home in several days depending on workup and treatment of above. Quality VTE Deep Vein Thrombosis/Pulmonary Embolism Present on Admission: No
[2018-08-17] MEDS: guaiFENesin ER 600 MG TAB 1200 MG PO (21:05)
[2018-08-18] VITALS (13 sets, daily range): BP systolic 119–129; BP diastolic 54–79; PULSE 59–64; RESP 12–18; TEMP 36.4–37; O2SAT 91–98
[2018-08-18 06:05] LABS: Add Manual Diff / Slide Review NO; Basophils Absolute Auto 0 /uL (0-100); Basophils Percent Auto 0.3 % (0-2); Eosinophils Absolute Auto 300 /uL (0-450); Eosinophils Percent Auto 2.2 % (2-4); Hematocrit 34.2 % (36-46); Hemoglobin 11.6 g/dL (12.0-16.0); Lymphocytes Absolute Auto 2300 /uL (1100-4500); Lymphocytes Percent Auto 15.6 % (25-40); Mean Corpuscular HGB Conc 33.9 % (30-36); Mean Corpuscular Hemoglobin 31.2 PG (26-34); Monocytes Absolute Auto 1000 /uL (0-900); Neutrophils Absolute Auto 11100 /uL (1500-7000); Neutrophils Percent Auto 74.9 % (50-75); Platelet Count 244 X10^3/uL (150-400); Red Blood Cell Count 3.72 X10^6/uL (4.0-5.2); Red Cell Distribution Width 13.9 % (11.6-14.8); White Blood Cell Count 14.8 X10^3/uL (4.5-11.0)
[2018-08-18 06:08] LABS: Alanine Aminotransferase 33 IU/L (9-52); Albumin 3.8 g/dL (3.5-5.0); Albumin Globulin Ratio 1.2 (1.0-2.8); Alkaline Phosphatase 101 U/L (38-126); Aspartate Aminotransferase 27 IU/L (14-36); BUN Creatinine Ratio 32.2 (6-22); Bilirubin Total 0.5 mg/dL (0.2-1.3); Blood Urea Nitrogen 29 mg/dL (7-17); Calcium 8.9 mg/dL (8.4-10.2); Carbon Dioxide 28 mmol/L (22-32); Chloride 103 mmol/L (98-107); Estimated Glomerular Filt Rate > 60.0 mL/min (>60); Globulin 3.1 g/dL (1.7-4.1); Glucose 115 mg/dL (80-110); HEMOLYSIS < 15 (0-50); Magnesium 2.2 mg/dL (1.6-2.3); Potassium 3.8 mmol/L (3.4-5.1); Sodium 144 mmol/L (137-145); Total Protein 6.9 g/dL (6.3-8.2)
[2018-08-18] MEDS: LEVOTHYROXINE 125 MCG TABLET PO (06:18)
[2018-08-18 06:27] LABS: Procalcitonin 0.23 ng/mL (<0.5)
[2018-08-18 06:52] LABS: TSH w/ Reflex to FT4 1.83 uIU/mL (0.47-4.68)
[2018-08-18] MEDS: ALBUTEROL/IPRATROPIUM 3 ML AMPUL INH ×5 (08:54→23:44)
[2018-08-18] MEDS: ENOXAPARIN 40 MG/0.4 ML SYRINGE SUBCUT (09:59)
[2018-08-18] MEDS: FUROSEMIDE 40 MG/4 ML VIAL IV (09:59)
[2018-08-18] MEDS: ASPIRIN EC 81 MG TABLET PO (10:00)
[2018-08-18] MEDS: PROPRANOLOL ER 80 MG CAP.SA.24H PO (10:00)
[2018-08-18] MEDS: AZITHROMYCIN 250 MG TABLET PO (10:00)
[2018-08-18] MEDS: LOSARTAN 50 MG TABLET PO (10:00)
[2018-08-18] MEDS: SODIUM CHLORIDE 0.9% FLUSH 10 ML IV ×2 (10:00→21:27)
--- NOTE | 2018-08-18 10:21 | PM.PN.1 ---
Subjective Date Patient Seen: 08/18/18 Interval history: Pao Peñaloza is a 72-year-old female with a past medical history significant for hypertension, left bundle branch block, hypothyroidism, breast cancer status post lumpectomy, chemo and radiation thought to be in remission, and urinary incontinence who presented with progressive worsening shortness of breath, cough, and pleuritic chest pain. Interval history: Late yesterday afternoon echocardiogram resulted and discussed findings with patient in detail. Due to the motion abnormalities including apical septal and apical hypokinesis, cardiology recommended nuclear medicine stress test and patient was NPO at midnight. However, nuclear medicine stress test was unobtainable due to radioisotope shortage and has now been pushed to Tuesday. The patient is resting in bed comfortably. She reports malaise but otherwise her symptoms are all improving and are minimal including: dry cough, rhinitis and nasal congestion. She reports that her chest feels as though it is starting to loosen up. She has intermittent cough paroxysms that are bronchospastic in quality for which prednisone has been started today to help decrease airway inflammation. She continues to have mild pleuritic chest pain but this is also improved and she is no longer exhibiting splinting. She currently denies headache, sore throat, chest pain, abdominal pain, nausea, vomiting, fever, chills, dysuria, diarrhea or constipation. She is voiding and eliminating without difficulty. She is up ambulating without assistance. Exam Vital Signs (past 8 hours): - 08/18/18 08:35 08/18/18 08:54 08/18/18 10:10 Temperature 97.5 F L Pulse Rate 63 64 Respiratory Rate 16 Blood Pressure 124/77 Pulse Oximetry 91 94 94 08/18/18 11:17 08/18/18 12:15 08/18/18 14:37 Temperature 97.7 F Pulse Rate 61 61 63 Respiratory Rate 14 16 12 Blood Pressure 129/61 Pulse Oximetry 98 95 95 08/18/18 15:00 08/18/18 15:42 Temperature 97.6 F Pulse Rate 61 Respiratory Rate 18 Blood Pressure 125/79 Pulse Oximetry 96 94 Oxygen Delivery Method Room Air Oxygen Flow Rate 0 Narrative Exam Narrative: General: Elderly female sitting in bed and in no acute distress, well-developed, well-nourished, emotionally labile at times but appropriately interactive. HEENT: Normocephalic, atraumatic. External ears without defect. Pupils equal, round, and reactive to light. Anicteric sclerae, moist conjunctivae, and no lid lag. Oropharynx free of erythema and cobble stoning with moist mucosa. Neck: Supple with full range of motion. No jugular venous distension. No lymphadenopathy or thyromegaly. Cardiovascular: Regular rate and rhythm without murmurs, rubs, or gallops appreciated. Pulmonary: Diminished and tight but clear to auscultation bilaterally with occasional bibasilar crackle. No wheeze or rhonchi. Respiratory effort shallow due to splinitng related to pleuritic chest pain without use of accessory muscles. Abdomen: Soft, obese, bowel sounds present, nontender, nondistended. No hepatosplenomegaly or masses appreciated. Extremities: No clubbing or cyanosis. Mild pitting bipedal edema. Skin: Normal temperature, turgor, and texture; no rash, ulcers, or subcutaneous nodules appreciated. Neurological: Cranial nerves grossly intact. Psychiatric: Depressed mood with emotional lability and normal affect. Alert and oriented to person, place, and time. Objective Labs Result Diagrams: 08/18/18 05:31 08/18/18 05:31 Labs: Laboratory Results - last 24 hr 08/17/18 08/18/18 08/18/18 15:24 05:31 05:31 WBC 14.8 H RBC 3.72 L Hgb 11.6 L Hct 34.2 L MCV 92.0 MCH 31.2 MCHC 33.9 RDW 13.9 Plt Count 244 Neut % (Auto) 74.9 Lymph % (Auto) 15.6 L [place] % (Auto) 7.0 Eos % (Auto) 2.2 Baso % (Auto) 0.3 Neut # (Auto) 83575 H Lymph # (Auto) 2300 [place] # (Auto) 1000 H Eos # (Auto) 300 Baso # (Auto) 0 Sodium Potassium Chloride Carbon Dioxide BUN Creatinine Estimated GFR BUN/Creatinine Ratio Glucose Calcium Magnesium Total Bilirubin AST ALT Alkaline Phosphatase Total Protein Albumin Globulin Albumin/Globulin Ratio Procalcitonin 0.23 TSH Chlamy pneumoniae PCR Not detected Adenovirus (PCR) Not detected B.parapertussis DNA PCR Not detected Coronavirus OC43 (PCR) Not detected Coronavirus HKU1 (PCR) Not detected Coronavirus 229E (PCR) Not detected Coronavirus NL63 (PCR) Not detected Human Metapneumovir PCR Not detected Influenza Type A (PCR) Not detected Influenza Type B (PCR) Not detected M. pneumoniae (PCR) Not detected Parainfluenza 1 (PCR) Not detected Parainfluenza 2 (PCR) Not detected Parainfluenza 3 (PCR) Not detected Parainfluenza 4 (PCR) Not detected RSV (PCR) Not detected Entero/Rhino (PCR) Not detected 08/18/18 08/18/18 05:31 05:31 WBC RBC Hgb Hct MCV MCH MCHC RDW Plt Count Neut % (Auto) Lymph % (Auto) [place] % (Auto) Eos % (Auto) Baso % (Auto) Neut # (Auto) Lymph # (Auto) [place] # (Auto) Eos # (Auto) Baso # (Auto) Sodium 144 Potassium 3.8 Chloride 103 Carbon Dioxide 28 BUN 29 H Creatinine 0.90 Estimated GFR > 60.0 BUN/Creatinine Ratio 32.2 H Glucose 115 H Calcium 8.9 Magnesium 2.2 Total Bilirubin 0.5 AST 27 ALT 33 Alkaline Phosphatase 101 Total Protein 6.9 Albumin 3.8 Globulin 3.1 Albumin/Globulin Ratio 1.2 Procalcitonin TSH 1.83 Chlamy pneumoniae PCR Adenovirus (PCR) B.parapertussis DNA PCR Coronavirus OC43 (PCR) Coronavirus HKU1 (PCR) Coronavirus 229E (PCR) Coronavirus NL63 (PCR) Human Metapneumovir PCR Influenza Type A (PCR) Influenza Type B (PCR) M. pneumoniae (PCR) Parainfluenza 1 (PCR) Parainfluenza 2 (PCR) Parainfluenza 3 (PCR) Parainfluenza 4 (PCR) RSV (PCR) Entero/Rhino (PCR) Assessment & Plan Assessment & Plan narrative: Pao Peñaloza is a 72-year-old female with a past medical history significant for hypertension, left bundle branch block, hypothyroidism, breast cancer status post lumpectomy, chemo and radiation thought to be in remission, and urinary incontinence who presented with progressive worsening shortness of breath, cough, and pleuritic chest pain. 1. 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 Active. -Patient presented with progressive worsening shortness of breath, nonproductive dry cough, pleuritic chest pain and worsening lower extremity edema. -BNP 963. -Serial troponin x3 negative. -Chest x-ray demonstrated cardiomegaly with mild left effusion and increased vascularity suggestive of edema. CTA chest demonstrated mild bilateral pleural effusions. -Echocardiogram demonstrated stage II diastolic dysfunction with E/A ratio 1.3 and E/e' 30 (>15), LV wall thickness is borderline increased, LV EF 50-55%, apical septal wall hypokinesis, apical hypokinesis, moderate mitral regurg, [id number] aortic regurg, moderate to severe tricuspid regurg, RVSP 49 mm Hg based on right atrial pressure of 15 mm Hg. -Received Lasix 40 mg IV x1 in the ED. Continue Lasix 40 mg IV daily. Replete electrolytes as needed. Goal K > 4.0 and Mg > 2.0. -Continue to monitor closely on telemetry while diuresing. -Monitor strict I&Os and daily weight. Net +500. -Continue heart healthy and low-sodium diet. Change fluid restriction from 2 L to 1.5 L daily as patient is not actively diuresing based I&O and daily weight. -Will provide CHF teaching. -Ordered nuclear medicine stress test as there is some concern for ischemic heart disease and cardiology recommended, however, due to national shortage of radioisotope the patient will not be able to obtain until Tuesday08/21/2018. 2. Acute community-acquired bacterial pneumonia, present on admission. Improving. -Chest x-ray demonstrated patchy retrocardiac opacity possibly delivery representative of pneumonia. -CTA chest demonstrated non-specific bilateral subcentimeter pulmonary nodules likely delivery representative of resolving pneumonia. Recommend follow-up CT in 3-6 months to ensure resolution. Negative for PE. -Ordered complete pneumonia workup including: Respiratory viral PCR negative. Strep pneumoniae and Legionella urine antigens, pending. Sputum culture not yet collected. Blood cultures x2 have no growth to date. -Venous Doppler ultrasound of bilateral lower extremities negative for DVT. -Continue outpatient course of azithromycin 250 mg daily for 2 additional doses to complete course. Depending on infectious workup and if trends of infectious markers worsening will consider adding additional broad-spectrum coverage with ceftriaxone. -Consulted respiratory therapy for evaluation and treatment. Continue DuoNeb every 4 hours while awake and albuterol nebs every 6 hours as needed for shortness of breath. May use supplemental oxygen if necessary to maintain oxygen saturation 88%. -Continue conservative treatment including Mucinex 1200 mg twice daily for mucolytic effect and Sudafed 60 mg every 6 hours as needed for congestion. -Started glucocorticoid burst with prednisone 40 mg daily x5 days for reactive airway and possible underlying undiagnosed COPD (20 pack year history) 3. Hypertension, chronic, present on admission. Stable. -Continue home propranolol 80 mg daily and aspirin 81 mg. 4. Hypothyroidism, chronic, present on admission. Presumed stable. -Ordered TSH with reflex, pending. -Continue home levothyroxine 125 mcg daily. 5. Urinary incontinence, chronic, present on admission. Stable. -Completed course of macrobid for possible cystitis. -Continue homefesoterodine 8 mg po daily -She did request a [place] placement initially. Discussed risk of worsening her UTI and she agreed not to have one placed for now. Consider placement only if she is urinating continiously. Disposition: Likely to discharge home in several days depending on workup and treatment as above. Patient now planning on returning to [place] of [place]. Quality VTE Deep Vein Thrombosis/Pulmonary Embolism Present on Admission: No
--- NOTE | 2018-08-18 13:22 | PC.NURSE ---
Day Shift- Report rec'd from JENNIFER Lorenzo at 1310 on pt status. At 1315, pt sitting on side of bed now talking with Dr. Terrell.
--- NOTE | 2018-08-18 14:50 | PT.IIE ---
Current Diagnoses Heart failure, unspecified (08/16/18) Surgical History (Last Reviewed 08/16/18 @ 23:23 by JULIANNE Rios) H/O lumpectomy (Chronic) Hx of cholecystectomy (Chronic) Medical History (Last Reviewed 08/16/18 @ 23:23 by JULIANNE Rios) Breast cancer (Chronic) Fusion of lumbar spine (Chronic) Hypertension (Chronic) Hypothyroid (Chronic) LBBB (left bundle branch block) (Chronic) Urinary incontinence (Chronic) Physical Therapy Inpatient Evaluation/Re-Eval M1 PT/OT-IP Prior Functional Status Start: 08/18/18 15:55 Freq: NEEDED Status: Active Protocol: Document 08/18/18 14:50 AB (Rec: 08/18/18 16:14 AB [id number]) Medical Review Prior Functional Status Medical History Reviewed Yes Communication able to make needs known Mobility and Gait pt stated that she is independent with all mobilities and ambulation without AD but has been feeling slowly becoming unsteady and has used a SPC occasionally Social History Household Members spouse Living Arrangements House Number of Floors (Floors) 3 or More Floors Number of Stairs To Enter/Railing? 2 steps to enter with bilateral rails to enter 14 steps with bilateral rails to get to bedroom level Home Environment High Toilet Walk in Shower Built-In Shower Seat Home Equipment Front Wheel Walker Four Wheel Walker Straight Cane Hand Held Shower Grab Bars Near Toilet Employment Status Retired Additional Social History Comment Pt lives in [place] and plans to drive back upon d/c upstairs set up: walk in shower w/ built in chair, no grab bars, has a HHS; high toilet with grab bars downstairs set up: walk in shower with build in chair, has grab bars and SOLVENT RECOVERER; high toilet without grab bars. M2 PT-IP Current Condition Start: 08/18/18 15:55 Freq: NEEDED Status: Active Protocol: Document 08/18/18 14:50 AB (Rec: 08/18/18 16:14 AB [id number]) Physical Therapy Current Condition Current Condition Evaluation Date 08/18/18 Treatment Diagnosis CHF; difficulty in walking Onset Date 08/16/18 M3 PT-IP Subjective Start: 08/18/18 15:55 Freq: NEEDED Status: Active Protocol: Document 08/18/18 14:50 AB (Rec: 08/18/18 16:14 AB [id number]) Subjective Physical Therapy Visit Type Type Initial Evaluation Visit Start Time 14:50 Visit Stop Time 15:30 Total Visit Minutes 40 Number of PARAPROFESSIONAL INTERPRETER Visits 0 Physical Therapy Visit Comments Patient Comments pt agreeable to do PT Patient Goals to go home Therapy Pain Assessment Pain Present Pain Present Denied Pain M4 PT-IP Mobility and Gait Start: 08/18/18 15:55 Freq: NEEDED Status: Active Protocol: Document 08/18/18 14:50 AB (Rec: 08/18/18 16:14 AB [id number]) PT-Bed Mobility Assessment Supine to Sit Supine to Sit Standby Assistance Sit to Supine Sit to Supine Standby Assistance Scooting Scooting to Edge of Bed Standby Assistance PT-Transfer Assessment Sit to and From Stand Sit to and from Stand Standby Assistance Equipment Transfer Assistive Device None Gait Belt Orthotic/Prosthetic Devices or Brace: No Transfers Transfer Destination Chair Transfer Technique Stand Step Pivot Transfer Ability Level of Assist Contact Guard Assistance Gait Assessment Gait Gait Assistance Required: Contact Guard Assist Minimum Assistance Distance (Feet) 50 Able to Maintain Weight Bearing Status Yes During Gait Assistive Devices Assistive Device None Gait Belt Straight Cane Front Wheeled Walker 4 Wheeled Walker Orthotic/Prosthetic Devices or Brace: No Gait Deviations General Gait Pattern Antalgic Decreased Stride Length Decreased Feet Clearance Step-to Gait Factors Limiting Gait Function Factors Limiting Gait Function Decreased Activity Tolerance Decreased Strength Poor Balance Comments Gait Comments Assessed pt's ambulation. pt completed ambulation in room without AD 10 ft requiring min A and cues. Pt presents with unsteady gait with (+) LOB requiring min A for recovery. stated that she has chronic R ankle pain. Assessed ambulation using SPC for short distance mobility in room ~ 20 ft and pt requiring CGA to occasional min A and cues. assessed ambulation using 4WW. educated pt on how to use 4WW/locking/unlocking brakes. pt ambulated ~ 50 ft using 4WW CGA and cues for safety. pt requires more training with use of 4WW. pt initially stated that she has a 4WW and a SPC at home. But after ambulation using 4WW , stated that she has a FWW as well. Assessed ambulation using FWW and pt ambulated in room ~ 30 ft SBA . O2 sat decreased to 89% during ambulation but with good recovery to 94% with deep breathing W[place] varies 69 to 123 bpm PT-Balance Assessment Sitting Balance and Reactions Static Sitting Balance Ability Good Dynamic Sitting Balance Ability Good Standing Balance and Reactions Static Standing Balance Ability Fair Dynamic Standing Balance Ability Poor Device Used without AD M5 PT-IP Objective Assessments Start: 08/18/18 15:55 Freq: NEEDED Status: Active Protocol: Document 08/18/18 14:50 AB (Rec: 08/18/18 16:14 AB [id number]) Orientation Orientation/Cognition Level of Alertness Alert Orientation Name Age Birthday Date Place Situation Language Function Ability No Deficits Noted Safety Awareness Understands Safety Issues Memory Description No Deficits Noted Gross Range of Motion Lower Extremity ROM Assessment Within Functional Limits Strength Lower Extremity Strength Assessment Within Functional Limits Coordination Assessment Gross Coordination Gross Coordination WNL Sensation Assessment Sensation Gross Sensation WNL Muscle Tone Muscle Tone WNL Yes M6 PT-IP Treatment Start: 08/18/18 15:55 Freq: NEEDED Status: Active Protocol: Document 08/18/18 14:50 AB (Rec: 08/18/18 16:14 AB [id number]) Physical Therapy Treatment Education Education Provided Safety M7 PT-IP Assessment and Plan Start: 08/18/18 15:55 Freq: NEEDED Status: Active Protocol: Document 08/18/18 14:50 AB (Rec: 08/18/18 16:14 AB [id number]) PT Summary Assessment and Plan Potential Rehabilitation Potential Good Status of Condition at Evaluation Stable Summary Impairments Pain ROM Strength Balance Bed Mobility Transfers Gait Activity Tolerance Assessment Summary pt requiring SBA to CGA with mobility. recommending use of FWW at this time. will conduct more training with use of 4WW. will also complete stair climbing training prior to d/c. Goals Bed Mobility Goal Independent Transfer Goal Independent Four Wheeled Walker Gait Goal Independent Four Wheel Walker Gait Distance 250 Other Goals up/down 14 steps with bilateral rails SBA Days to Meet Goals 3 Frequency of Treatment Frequency Of Treatment Once a Day Treatment Plan Physical Therapy Treatment Plan Bed Mobility Training Transfer Training Gait Training Therapeutic Exercise Balance Retraining Discharge Planning Neuromuscular Re-ed Coordination Retraining Manual Therapy Other Recommendations and Next Treatment ambulation using 4WW, standing Focus balance/tolerance, stair climbing Recommendations To Nursing Amount of Assist Needed 1 Person Assist Discharge Recommendations PT Discharge Recommendations Home with Assistance Outpatient PT Other Discharge Recommendations pt will benefit from cardiopulmonary rehab
--- NOTE | 2018-08-18 15:30 | PC.NURSE ---
Addendum entered by Vanessa Moe R.N. 08/18/18 17:49: Tolerating meals well. Denying pain, SOB, and reporting that she feels as if she is getting enough oxygen. Lungs clear, but diminished. Non-productive cough and unable to provide sputum sample still. pt aware that specimen is needed and container is at bedside. Aware of her plan of care over the weekend and hopes to DC Tuesday after stress test. Original Note: TOMMY shift pt working with PT upon start of shift and during bedside report. Will introduce once PT is completed.
--- NOTE | 2018-08-18 16:38 | P.PN_ITS ---
Subjective Date Patient Seen: 08/18/18 Interval history: Pao Peñaloza is a 72-year-old female with a past medical history significant for hypertension, left bundle branch block, hypothyroidism, breast cancer status post lumpectomy, chemo and radiation thought to be in remission, and urinary incontinence who presented with progressive worsening shortness of breath, cough, and pleuritic chest pain. Interval history: Late yesterday afternoon echocardiogram resulted and discussed findings with patient in detail. Due to the motion abnormalities including apical septal and apical hypokinesis, cardiology recommended nuclear medicine stress test and patient was NPO at midnight. However, nuclear medicine stress test was unobtainable due to radioisotope shortage and has now been pushed to Tuesday. The patient is resting in bed comfortably. She reports malaise but otherwise her symptoms are all improving and are minimal including: dry cough, rhinitis and nasal congestion. She reports that her chest feels as though it is starting to loosen up. She has intermittent cough paroxysms that are bronchospastic in quality for which prednisone has been started today to help decrease airway inflammation. She continues to have mild pleuritic chest pain but this is also improved and she is no longer exhibiting splinting. She currently denies headache, sore throat, chest pain, abdominal pain, nausea, vomiting, fever, chills, dysuria, diarrhea or constipation. She is voiding and eliminating without difficulty. She is up ambulating without assistance. Exam Vital Signs (past 8 hours): - 08/18/18 08:35 08/18/18 08:54 08/18/18 10:10 Temperature 97.5 F L Pulse Rate 63 64 Respiratory Rate 16 Blood Pressure 124/77 Pulse Oximetry 91 94 94 08/18/18 11:17 08/18/18 12:15 08/18/18 14:37 Temperature 97.7 F Pulse Rate 61 61 63 Respiratory Rate 14 16 12 Blood Pressure 129/61 Pulse Oximetry 98 95 95 08/18/18 15:00 08/18/18 15:42 Temperature 97.6 F Pulse Rate 61 Respiratory Rate 18 Blood Pressure 125/79 Pulse Oximetry 96 94 Oxygen Delivery Method Room Air Oxygen Flow Rate 0 Narrative Exam Narrative: General: Elderly female sitting in bed and in no acute distress, well-developed, well-nourished, emotionally labile at times but appropriately interactive. HEENT: Normocephalic, atraumatic. External ears without defect. Pupils equal, round, and reactive to light. Anicteric sclerae, moist conjunctivae, and no lid lag. Oropharynx free of erythema and cobble stoning with moist mucosa. Neck: Supple with full range of motion. No jugular venous distension. No lymphadenopathy or thyromegaly. Cardiovascular: Regular rate and rhythm without murmurs, rubs, or gallops appreciated. Pulmonary: Diminished and tight but clear to auscultation bilaterally with occasional bibasilar crackle. No wheeze or rhonchi. Respiratory effort shallow due to splinitng related to pleuritic chest pain without use of accessory muscles. Abdomen: Soft, obese, bowel sounds present, nontender, nondistended. No hepatosplenomegaly or masses appreciated. Extremities: No clubbing or cyanosis. Mild pitting bipedal edema. Skin: Normal temperature, turgor, and texture; no rash, ulcers, or subcutaneous nodules appreciated. Neurological: Cranial nerves grossly intact. Psychiatric: Depressed mood with emotional lability and normal affect. Alert and oriented to person, place, and time. Objective Labs Result Diagrams: 08/18/18 05:31 08/18/18 05:31 Labs: Laboratory Results - last 24 hr 08/17/18 08/18/18 08/18/18 15:24 05:31 05:31 WBC 14.8 H RBC 3.72 L Hgb 11.6 L Hct 34.2 L MCV 92.0 MCH 31.2 MCHC 33.9 RDW 13.9 Plt Count 244 Neut % (Auto) 74.9 Lymph % (Auto) 15.6 L [place] % (Auto) 7.0 Eos % (Auto) 2.2 Baso % (Auto) 0.3 Neut # (Auto) 24647 H Lymph # (Auto) 2300 [place] # (Auto) 1000 H Eos # (Auto) 300 Baso # (Auto) 0 Sodium Potassium Chloride Carbon Dioxide BUN Creatinine Estimated GFR BUN/Creatinine Ratio Glucose Calcium Magnesium Total Bilirubin AST ALT Alkaline Phosphatase Total Protein Albumin Globulin Albumin/Globulin Ratio Procalcitonin 0.23 TSH Chlamy pneumoniae PCR Not detected Adenovirus (PCR) Not detected B.parapertussis DNA PCR Not detected Coronavirus OC43 (PCR) Not detected Coronavirus HKU1 (PCR) Not detected Coronavirus 229E (PCR) Not detected Coronavirus NL63 (PCR) Not detected Human Metapneumovir PCR Not detected Influenza Type A (PCR) Not detected Influenza Type B (PCR) Not detected M. pneumoniae (PCR) Not detected Parainfluenza 1 (PCR) Not detected Parainfluenza 2 (PCR) Not detected Parainfluenza 3 (PCR) Not detected Parainfluenza 4 (PCR) Not detected RSV (PCR) Not detected Entero/Rhino (PCR) Not detected 08/18/18 08/18/18 05:31 05:31 WBC RBC Hgb Hct MCV MCH MCHC RDW Plt Count Neut % (Auto) Lymph % (Auto) [place] % (Auto) Eos % (Auto) Baso % (Auto) Neut # (Auto) Lymph # (Auto) [place] # (Auto) Eos # (Auto) Baso # (Auto) Sodium 144 Potassium 3.8 Chloride 103 Carbon Dioxide 28 BUN 29 H Creatinine 0.90 Estimated GFR > 60.0 BUN/Creatinine Ratio 32.2 H Glucose 115 H Calcium 8.9 Magnesium 2.2 Total Bilirubin 0.5 AST 27 ALT 33 Alkaline Phosphatase 101 Total Protein 6.9 Albumin 3.8 Globulin 3.1 Albumin/Globulin Ratio 1.2 Procalcitonin TSH 1.83 Chlamy pneumoniae PCR Adenovirus (PCR) B.parapertussis DNA PCR Coronavirus OC43 (PCR) Coronavirus HKU1 (PCR) Coronavirus 229E (PCR) Coronavirus NL63 (PCR) Human Metapneumovir PCR Influenza Type A (PCR) Influenza Type B (PCR) M. pneumoniae (PCR) Parainfluenza 1 (PCR) Parainfluenza 2 (PCR) Parainfluenza 3 (PCR) Parainfluenza 4 (PCR) RSV (PCR) Entero/Rhino (PCR) Assessment & Plan Assessment & Plan narrative: Pao Peñaloza is a 72-year-old female with a past medical history significant for hypertension, left bundle branch block, hypothyroidism, breast cancer status post lumpectomy, chemo and radiation thought to be in remission, and urinary incontinence who presented with progressive worsening shortness of breath, cough, and pleuritic chest pain. 1. 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 Active. -Patient presented with progressive worsening shortness of breath, nonproductive dry cough, pleuritic chest pain and worsening lower extremity edema. -BNP 963. -Serial troponin x3 negative. -Chest x-ray demonstrated cardiomegaly with mild left effusion and increased vascularity suggestive of edema. CTA chest demonstrated mild bilateral pleural effusions. -Echocardiogram demonstrated stage II diastolic dysfunction with E/A ratio 1.3 and E/e' 30 (>15), LV wall thickness is borderline increased, LV EF 50-55%, ap ical septal wall hypokinesis, apical hypokinesis, moderate mitral regurg, [id number] aortic regurg, moderate to severe tricuspid regurg, RVSP 49 mm Hg based on right atrial pressure of 15 mm Hg. -Received Lasix 40 mg IV x1 in the ED. Continue Lasix 40 mg IV daily. Replete electrolytes as needed. Goal K > 4.0 and Mg > 2.0. -Continue to monitor closely on telemetry while diuresing. -Monitor strict I&Os and daily weight. Net +500. -Continue heart healthy and low-sodium diet. Change fluid restriction from 2 L to 1.5 L daily as patient is not actively diuresing based I&O and daily weight. -Will provide CHF teaching. -Ordered nuclear medicine stress test as there is some concern for ischemic heart disease and cardiology recommended, however, due to national shortage of radioisotope the patient will not be able to obtain until Tuesday08/21/2018. 2. Acute community-acquired bacterial pneumonia, present on admission. Improving. -Chest x-ray demonstrated patchy retrocardiac opacity possibly floor representative of pneumonia. -CTA chest demonstrated non-specific bilateral subcentimeter pulmonary nodules likely floor representative of resolving pneumonia. Recommend follow-up CT in 3-6 months to ensure resolution. Negative for PE. -Ordered complete pneumonia workup including: Respiratory viral PCR negative. Strep pneumoniae and Legionella urine antigens, pending. Sputum culture not yet collected. Blood cultures x2 have no growth to date. -Venous Doppler ultrasound of bilateral lower extremities negative for DVT. -Continue outpatient course of azithromycin 250 mg daily for 2 additional doses to complete course. Depending on infectious workup and if trends of infectious markers worsening will consider adding additional broad-spectrum coverage with ceftriaxone. -Consulted respiratory therapy for evaluation and treatment. Continue DuoNeb every 4 hours while awake and albuterol nebs every 6 hours as needed for shortness of breath. May use supplemental oxygen if necessary to maintain oxygen saturation 88%. -Continue conservative treatment including Mucinex 1200 mg twice daily for mucolytic effect and Sudafed 60 mg every 6 hours as needed for congestion. -Started glucocorticoid burst with prednisone 40 mg daily x5 days for reactive airway and possible underlying undiagnosed COPD (20 pack year history) 3. Hypertension, chronic, present on admission. Stable. -Continue home propranolol 80 mg daily and aspirin 81 mg. 4. Hypothyroidism, chronic, present on admission. Presumed stable. -Ordered TSH with reflex, pending. -Continue home levothyroxine 125 mcg daily. 5. Urinary incontinence, chronic, present on admission. Stable. -Completed course of macrobid for possible cystitis. -Continue homefesoterodine 8 mg po daily -She did request a [place] placement initially. Discussed risk of worsening her UTI and she agreed not to have one placed for now. Consider placement only if she is urinating continiously. Disposition: Likely to discharge home in several days depending on workup and treatment as above. Patient now planning on returning to [place] instead of annual [place] trip [place] the [place]. Quality VTE Deep Vein Thrombosis/Pulmonary Embolism Present on Admission: No
[2018-08-18] MEDS: guaiFENesin ER 600 MG TAB 1200 MG PO (21:27)
[2018-08-19] VITALS (11 sets, daily range): BP systolic 130–157; BP diastolic 63–79; PULSE 61–68; RESP 14–18; TEMP 36.3–36.9; O2SAT 91–98
--- NOTE | 2018-08-19 01:48 | PC.NURSE ---
Addendum entered by Melany Schwartz R.N. 08/19/18 06:08: Patient slept at intervals. Has been on just CPAP during the night with sats > 92% but states she uses oxygen at 2L/min at home during the night. Denies any pain. Continues on 1.5L/24h fluid restriction. Original Note: Patient is alert and oriented. Breath sounds diminished throughout with inspiratory crackles in right LL. Using CPAP for sleep and on RA sat is 95%. HRR. Telemetry reading was SR w/1st degree AVB-BBB. Denies nausea. BT present and abdomen is soft. Denies dysuria, frequency or urgency but states she can be incontinent if she waits too long. Independent with bed mobility and is up to bathroom with walker and SBA. Denies pain. Fall risk score is high so bed alarm is activated and patient reminded to call for assistance if needing to get out of bed.
[2018-08-19 05:37] LABS: Add Manual Diff / Slide Review NO; Basophils Absolute Auto 100 /uL (0-100); Basophils Percent Auto 0.5 % (0-2); Eosinophils Absolute Auto 600 /uL (0-450); Eosinophils Percent Auto 5.7 % (2-4); Hematocrit 35.3 % (36-46); Hemoglobin 12.3 g/dL (12.0-16.0); Lymphocytes Absolute Auto 1900 /uL (1100-4500); Lymphocytes Percent Auto 18.1 % (25-40); Mean Corpuscular Hemoglobin 31.5 PG (26-34); Monocytes Absolute Auto 900 /uL (0-900); Neutrophils Absolute Auto 6900 /uL (1500-7000); Neutrophils Percent Auto 66.7 % (50-75); Platelet Count 266 X10^3/uL (150-400); Red Blood Cell Count 3.91 X10^6/uL (4.0-5.2); White Blood Cell Count 10.4 X10^3/uL (4.5-11.0)
[2018-08-19 05:40] LABS: BUN Creatinine Ratio 33.8 (6-22); Blood Urea Nitrogen 27 mg/dL (7-17); Calcium 8.4 mg/dL (8.4-10.2); Carbon Dioxide 27 mmol/L (22-32); Chloride 103 mmol/L (98-107); Cholesterol 131 mg/dL (140-199); Estimated Glomerular Filt Rate > 60.0 mL/min (>60); Glucose 106 mg/dL (80-110); HDL Cholesterol 28 mg/dL (40-60); HEMOLYSIS < 15 (0-50); LDL Cholesterol Calculated 76 mg/dL (<100); Magnesium 1.9 mg/dL (1.6-2.3); Potassium 3.7 mmol/L (3.4-5.1); Sodium 140 mmol/L (137-145); Triglycerides 133 mg/dL (35-150)
[2018-08-19 05:49] LABS: Hemoglobin A1C% w Est Avg Glu 5.3 % (4.0-6.0)
[2018-08-19] MEDS: ALBUTEROL/IPRATROPIUM 3 ML AMPUL INH ×2 (05:54→20:01)
[2018-08-19] MEDS: LEVOTHYROXINE 125 MCG TABLET PO (06:02)
[2018-08-19] MEDS: FESOTERODINE 8 MG 8 EACH PO (08:38)
[2018-08-19] MEDS: ASPIRIN EC 81 MG TABLET PO (08:38)
[2018-08-19] MEDS: guaiFENesin ER 600 MG TAB 1200 MG PO ×2 (08:38→20:55)
[2018-08-19] MEDS: ENOXAPARIN 40 MG/0.4 ML SYRINGE SUBCUT (08:38)
[2018-08-19] MEDS: predniSONE 20 MG TABLET 40 MG PO (08:39)
[2018-08-19] MEDS: LOSARTAN 50 MG TABLET PO (08:44)
[2018-08-19] MEDS: SODIUM CHLORIDE 0.9% FLUSH 10 ML IV ×3 (08:44→20:55)
[2018-08-19] MEDS: PROPRANOLOL ER 80 MG CAP.SA.24H PO (08:44)
--- NOTE | 2018-08-19 09:59 | PC.NURSE ---
Day Shift- Pt A&OX4, able to make needs known, states feeling a little better today compared to yesterday. Denies feeling short of breath this morning. AE diminished to bases, fine crackles to bases bilaterally, more to RLL compared to LLL. No wheezing noted. O2 sat 94% on RA. Intermittent dry cough, no sputum production, pt aware of the need for sputum sample if able to produce. No edema noted, Right wrist PIV infiltrated when flushing NS. Pt aware of plan for [place] stress test Tuesday and 1.5L fluid restriction. Pt compliant with care. No other voiced concerns at this time.
--- NOTE | 2018-08-19 10:32 | CM.DPC ---
DCP Cont: Per MD, pt still requiring IV diuretics although pneumonia seems to be improving and pt to have Stress Test on Tuesday before being able to determine if pt will be safe for d/c back to their boat [place] the [place] or to drive home to their house in [place]. Per PT, anticipating pt will continue to progress while here and recommending safe d/c home with outpt PT and cardiopulmonary rehab. Plan: SW to continue to follow closely after Tuesday08/21/18 stress test and further PT to confirm pt is safe for d/c home to either their boat or house and any further identified discharge planning needs. CHIDI Pimentel
[2018-08-19] MEDS: FUROSEMIDE 40 MG/4 ML VIAL IV (10:40)
--- NOTE | 2018-08-19 10:50 | PT.IPTN ---
Current Diagnoses Heart failure, unspecified (08/16/18) Physical Therapy Treatment Note M2 PT-IP Current Condition Start: 08/18/18 15:55 Freq: NEEDED Status: Active Protocol: Document 08/18/18 14:50 AB (Rec: 08/18/18 16:14 AB [id number]) Physical Therapy Current Condition Current Condition Evaluation Date 08/18/18 Treatment Diagnosis CHF; difficulty in walking Onset Date 08/16/18 M3 PT-IP Subjective Start: 08/18/18 15:55 Freq: NEEDED Status: Active Protocol: Document 08/19/18 12:13 GGD (Rec: 08/19/18 12:22 GGD [id number]) Subjective Physical Therapy Visit Type Type Treatment Note Visit Start Time 11:25 Visit Stop Time 11:50 Total Visit Minutes 25 Physical Therapy Visit Comments Patient Comments PT willing to work with therpay. M4 PT-IP Mobility and Gait Start: 08/18/18 15:55 Freq: NEEDED Status: Active Protocol: Document 08/19/18 12:13 GGD (Rec: 08/19/18 12:22 GGD [id number]) PT-Bed Mobility Assessment Supine to Sit Supine to Sit Standby Assistance Sit to Supine Sit to Supine Standby Assistance Scooting Scooting to Edge of Bed Standby Assistance PT-Transfer Assessment Sit to and From Stand Sit to and from Stand Standby Assistance Equipment Transfer Assistive Device None Gait Belt Orthotic/Prosthetic Devices or Brace: No Transfers Transfer Destination Chair Toilet Transfer Technique Stand Step Pivot Transfer Ability Level of Assist Contact Guard Assistance Gait Assessment Gait Gait Assistance Required: Contact Guard Assist Minimum Assistance Distance (Feet) 80 Able to Maintain Weight Bearing Status Yes During Gait Assistive Devices Assistive Device Gait Belt 4 Wheeled Walker Orthotic/Prosthetic Devices or Brace: No Gait Deviations General Gait Pattern Antalgic Decreased Stride Length Decreased Feet Clearance Step-to Gait Factors Limiting Gait Function Factors Limiting Gait Function Decreased Activity Tolerance Decreased Strength Poor Balance Comments Gait Comments O2 with activity 92-94% HR 723 -75 5 feet of ambulation in room without AD with CGA. M5 PT-IP Objective Assessments Start: 08/18/18 15:55 Freq: NEEDED Status: Active Protocol: Document 08/18/18 14:50 AB (Rec: 08/18/18 16:14 AB [id number]) Orientation Orientation/Cognition Level of Alertness Alert Orientation Name Age Birthday Date Place Situation Language Function Ability No Deficits Noted Safety Awareness Understands Safety Issues Memory Description No Deficits Noted Gross Range of Motion Lower Extremity ROM Assessment Within Functional Limits Strength Lower Extremity Strength Assessment Within Functional Limits Coordination Assessment Gross Coordination Gross Coordination WNL Sensation Assessment Sensation Gross Sensation WNL Muscle Tone Muscle Tone WNL Yes M6 PT-IP Treatment Start: 08/18/18 15:55 Freq: NEEDED Status: Active Protocol: Document 08/18/18 14:50 AB (Rec: 08/18/18 16:14 AB [id number]) Physical Therapy Treatment Education Education Provided Safety M7 PT-IP Assessment and Plan Start: 08/18/18 15:55 Freq: NEEDED Status: Active Protocol: Document 08/19/18 12:13 GGD (Rec: 08/19/18 12:22 GGD [id number]) PT Summary Assessment and Plan Summary Assessment Summary Pt safe with mobility with 4WW . She need cues for posture with gait and safety use of 4WW in bathroom. She unsteady with gait without AD. Depending on D/C location, pt may need stair training. Frequency of Treatment Frequency Of Treatment Once a Day Treatment Plan Physical Therapy Treatment Plan Bed Mobility Training Transfer Training Gait Training Therapeutic Exercise Balance Retraining Discharge Planning Neuromuscular Re-ed Coordination Retraining Manual Therapy Recommendations To Nursing Amount of Assist Needed 1 Person Assist Discharge Recommendations PT Discharge Recommendations Home with Assistance Outpatient PT Other Discharge Recommendations Home vs boat
[2018-08-19] MEDS: MAGNESIUM CHLORIDE 64 MG TABLET PO (11:00)
--- NOTE | 2018-08-19 15:46 | P.PN_ITS ---
Subjective Date Patient Seen: 08/19/18 Interval history: Pao Peñaloza is a 72-year-old female with a past medical history significant for hypertension, left bundle branch block, hypothyroidism, breast cancer status post lumpectomy, chemo and radiation thought to be in remission, and urinary incontinence who presented with progressive worsening shortness of breath, cough, and pleuritic chest pain. The patient is resting in bed comfortably. Her pneumonia continues to slowly improve and she feels as though her lungs are loosening up. She has intermittent cough paroxysms that are bronchospastic in quality for which prednisone has been started today to help decrease airway inflammation. Her pleuritic chest pain has resolved. She continues to have mild shortness of breath with exertion. She is starting to diurese with increased fluid restriction and is net -800 cc. She currently denies headache, sore throat, chest pain, abdominal pain, nausea, vomiting, fever, chills, dysuria, diarrhea or constipation. She is voiding and eliminating without difficulty. She is up ambulating without assistance. Exam Vital Signs (past 8 hours): - 08/19/18 08:25 08/19/18 11:00 Temperature 97.8 F Pulse Rate 68 Respiratory Rate 16 Blood Pressure 139/69 Pulse Oximetry 94 95 Oxygen Delivery Method Room Air Oxygen Flow Rate 0 Narrative Exam Narrative: General: Elderly female sitting in bed and in no acute distress, well-developed, well-nourished, emotionally labile at times but appropriately interactive. HEENT: Normocephalic, atraumatic. External ears without defect. Pupils equal, round, and reactive to light. Anicteric sclerae, moist conjunctivae, and no lid lag. Oropharynx free of erythema and cobble stoning with moist mucosa. Neck: Supple with full range of motion. No jugular venous distension. No l ymphadenopathy or thyromegaly. Cardiovascular: Regular rate and rhythm without murmurs, rubs, or gallops appreciated. Pulmonary: Diminished and tight but clear to auscultation bilaterally with occa sional bibasilar crackle. No wheeze or rhonchi. Respiratory effort shallow due to splinitng related to pleuritic chest pain without use of accessory muscles. Abdomen: Soft, obese, bowel sounds present, nontender, nondistended. No hepatosplenomegaly or masses appreciated. Extremities: No clubbing or cyanosis. Mild pitting bipedal edema. Skin: Normal temperature, turgor, and texture; no rash, ulcers, or subcutaneous nodules appreciated. Neurological: Cranial nerves grossly intact. Psychiatric: Depressed mood with emotional lability and normal affect. Alert and oriented to person, place, and time. Objective Labs Result Diagrams: 08/19/18 05:10 08/19/18 05:10 Labs: Laboratory Results - last 24 hr 08/19/18 08/19/18 08/19/18 05:10 05:10 05:10 WBC 10.4 RBC 3.91 L Hgb 12.3 Hct 35.3 L MCV 90.0 MCH 31.5 MCHC 35.0 RDW 14.0 Plt Count 266 Neut % (Auto) 66.7 Lymph % (Auto) 18.1 L [place] % (Auto) 9.0 Eos % (Auto) 5.7 H Baso % (Auto) 0.5 Neut # (Auto) 6900 Lymph # (Auto) 1900 [place] # (Auto) 900 Eos # (Auto) 600 H Baso # (Auto) 100 Sodium 140 Potassium 3.7 Chloride 103 Carbon Dioxide 27 BUN 27 H Creatinine 0.80 Estimated GFR > 60.0 BUN/Creatinine Ratio 33.8 H Glucose 106 Hemoglobin A1c 5.3 Calcium 8.4 Magnesium 1.9 Triglycerides 133 Cholesterol 131 L LDL Cholesterol, Calc 76 HDL Cholesterol 28 L Assessment & Plan Assessment & Plan narrative: Pao Peñaloza is a 72-year-old female with a past medical history significant for hypertension, left bundle branch block, hypothyroidism, breast cancer status post lumpectomy, chemo and radiation thought to be in remission, and urinary incontinence who presented with progressive worsening shortness of breath, cough, and pleuritic chest pain. 1. 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 Active. -Patient presented with progressive worsening shortness of breath, nonproductive dry cough, pleuritic chest pain and worsening lower extremity edema. -BNP 963. -Serial troponin x3 negative. -Chest x-ray demonstrated cardiomegaly with mild left effusion and increased vascularity suggestive of edema. CTA chest demonstrated mild bilateral pleural effusions. -Echocardiogram demonstrated stage II diastolic dysfunction with E/A ratio 1.3 and E/e' 30 (>15), LV wall thickness is borderline increased, LV EF 50-55%, apical septal wall hypokinesis, apical hypokinesis, moderate mitral regurg, [id number] aortic regurg, moderate to severe tricuspid regurg, RVSP 49 mm Hg based on right atrial pressure of 15 mm Hg. -Received Lasix 40 mg IV x1 in the ED. Continue Lasix 40 mg IV daily. Replete electrolytes as needed. Goal K > 4.0 and Mg > 2.0. -Continue to monitor closely on telemetry while diuresing. -Monitor strict I&Os and daily weight. Net -800 mL. -Continue heart healthy and low-sodium diet. Continue fluid restriction of 1.5 L daily. -Continue losartan 50 mg daily and propanolol. -Risk stratified: Hemoglobin A1c is normal at 5.3% and fasting lipid panel well controlled including: Total cholesterol 131, triglycerides 133, LDL 76, HDL low at 28. Encouraged [place] 3 intake. -Will provide CHF teaching. -Ordered nuclear medicine stress test as there is some concern for ischemic heart disease and cardiology recommended, however, due to national shortage of radioisotope the patient will not be able to obtain until Tuesday08/21/2018. 2. Acute community-acquired bacterial pneumonia, present on admission. Improving. -Chest x-ray demonstrated patchy retrocardiac opacity possibly marketing development representative of pneumonia. -CTA chest demonstrated non-specific bilateral subcentimeter pulmonary nodules likely marketing development representative of resolving pneumonia. Recommend follow-up CT in 3-6 months to ensure resolution. Negative for PE. -Ordered complete pneumonia workup including: Respiratory viral PCR negative. Strep pneumoniae and Legionella urine antigens, pending. Sputum culture not yet collected. Blood cultures x2 have no growth to date. -Venous Doppler ultrasound of bilateral lower extremities negative for DVT. -Continue outpatient course of azithromycin 250 mg daily for 2 additional doses to complete course. Depending on infectious workup and if trends of infectious markers worsening will consider adding additional broad-spectrum coverage with ceftriaxone. -Consulted respiratory therapy for evaluation and treatment. Continue DuoNeb every 4 hours while awake and albuterol nebs every 6 hours as needed for shortness of breath. May use supplemental oxygen if necessary to maintain oxygen saturation 88%. -Continue conservative treatment including Mucinex 1200 mg twice daily for mucolytic effect and Sudafed 60 mg every 6 hours as needed for congestion. -Started glucocorticoid burst with prednisone 40 mg daily x 5 days for reactive airway and possible underlying undiagnosed COPD (20 pack year history) 3. Hypertension, chronic, present on admission. Stable. -Continue home propranolol 80 mg daily and aspirin 81 mg. 4. Hypothyroidism, chronic, present on admission. Presumed stable. -TSH normal at 1.83. -Continue home levothyroxine 125 mcg daily. 5. Urinary incontinence and overactive bladder, chronic, present on admission. Stable. -Completed course of macrobid for possible cystitis. -Continue home fesoterodine 8 mg daily. -She did request a [place] placement initially. Discussed risk of worsening her UTI and she agreed not to have one placed for now. Consider placement only if she is urinating continiously. Disposition: Plan is to continue to diurese until euvolemic and dyspnea on exertion has improved and stress test on 08/21/2018. Likely to discharge home at the earliest 08/21 after stress test depending on results. Quality VTE Deep Vein Thrombosis/Pulmonary Embolism Present on Admission: No
[2018-08-19] MEDS: POTASSIUM CHLORIDE 10 MEQ TAB PO (17:45)
[2018-08-20] VITALS (12 sets, daily range): BP systolic 122–147; BP diastolic 58–91; PULSE 60–116; RESP 16–18; TEMP 36.2–37.1; O2SAT 92–97
--- NOTE | 2018-08-20 00:02 | PC.NURSE ---
Addendum entered by Melany Schwartz R.N. 08/20/18 06:22: Slept most of shift. Denies any pain/discomfort. Noted weight to be down 4.5kg after bed rezeroed, goal has been to decrease weight with use of diuretic and fluid restriction. Original Note: Patient is alert and oriented. Breath sounds remain diminished but improved air movement; crackles auscultated in right LL. Denies SOB. Still intermittent non productive cough. Using CPAP and O2 sat is 93%. HRR; is on telemetry with last reading recorded as SR w/BBB. Denies nausea. BT present and abdomen is soft. Denies dysuria or frequency but has some stress incontinence and incontinence if she waits too long to go to bathroom. Turns self in bed. Ambulates independent to bathroom and is steady on feet; denies feeling weak. Fall risk score is moderate (no longer using walker; states she thought she had to use it). Denies pain.
[2018-08-20] MEDS: LEVOTHYROXINE 125 MCG TABLET PO (06:19)
[2018-08-20] MEDS: ALBUTEROL/IPRATROPIUM 3 ML AMPUL INH ×2 (08:00→17:00)
[2018-08-20] MEDS: ENOXAPARIN 40 MG/0.4 ML SYRINGE SUBCUT (08:27)
[2018-08-20] MEDS: guaiFENesin ER 600 MG TAB 1200 MG PO ×2 (08:28→20:00)
[2018-08-20] MEDS: LOSARTAN 50 MG TABLET PO (08:28)
[2018-08-20] MEDS: POTASSIUM CHLORIDE 10 MEQ TAB PO ×2 (08:29→17:06)
[2018-08-20] MEDS: predniSONE 20 MG TABLET 40 MG PO (08:29)
[2018-08-20] MEDS: PROPRANOLOL ER 80 MG CAP.SA.24H PO (08:29)
[2018-08-20] MEDS: FESOTERODINE 8 MG 8 EACH PO (08:29)
[2018-08-20] MEDS: FUROSEMIDE 40 MG/4 ML VIAL IV (08:29)
[2018-08-20] MEDS: ASPIRIN EC 81 MG TABLET PO (08:30)
--- NOTE | 2018-08-20 10:16 | P.PN_ITS ---
Subjective Date Patient Seen: 08/20/18 Interval history: Pao Peñaloza is a 72-year-old female with a past medical history significant for hypertension, left bundle branch block, hypothyroidism, breast cancer status post lumpectomy, chemo and radiation thought to be in remission, and urinary incontinence who presented with progressive worsening shortness of breath, cough, and pleuritic chest pain. The patient is resting in bed comfortably. She is diuresing effectively and is net -2 L. She reports her breathing has substantially improved and she is very minimally dyspneic with exertion. Her pneumonia continues to slowly improve and she feels as though her lungs are loosening up. She is no longer having cough paroxysms and was able to expectorate minimal sputum today. She currently denies headache, sore throat, chest pain, abdominal pain, nausea, vomiting, fever, chills, dysuria, diarrhea or constipation. She is voiding and eliminating without difficulty. She is up ambulating with assistance. Exam Vital Signs (past 8 hours): - 08/20/18 03:02 08/20/18 08:07 08/20/18 08:27 Temperature 98.7 F 98.5 F Pulse Rate 66 60 68 Respiratory Rate 16 16 18 Blood Pressure 130/65 147/71 H Pulse Oximetry 94 95 93 08/20/18 09:01 Temperature Pulse Rate Respiratory Rate Blood Pressure Pulse Oximetry 93 Fraction of Inspired Oxygen 21 Oxygen Delivery Method Room Air Oxygen Flow Rate 0 Narrative Exam Narrative: General: Elderly female sitting in bed and in no acute distress, well-developed, well-nourished, emotionally labile at times but appropriately interactive. HEENT: Normocephalic, atraumatic. External ears without defect. Pupils equal, round, and reactive to light. Anicteric sclerae, moist conjunctivae, and no lid lag. Oropharynx free of erythema and cobble stoning with moist mucosa. Neck: Supple with full range of motion. No jugular venous distension. No lymphadenopathy or thyromegaly. Cardiovascular: Regular rate and rhythm without murmurs, rubs, or gallops appreciated. Pulmonary: Clear to auscultation bilaterally throughout all lung rodríguez. No crackles, wheeze or rhonchi. Normal respiratory effort with no use of accessory muscles. Abdomen: Soft, obese, bowel sounds present, nontender, nondistended. No hepatosplenomegaly or masses appreciated. Extremities: No clubbing, cyanosis or edema. Skin: Normal temperature, turgor, and texture; no rash, ulcers, or subcutaneous nodules appreciated. Neurological: Cranial nerves grossly intact. Psychiatric: Depressed mood with emotional lability and normal affect. Alert and oriented to person, place, and time. Objective Labs Result Diagrams: 08/19/18 05:10 08/19/18 05:10 Assessment & Plan Assessment & Plan narrative: Pao Peñaloza is a 72-year-old female with a past medical history significant for hypertension, left bundle branch block, hypothyroidism, breast cancer status post lumpectomy, chemo and radiation thought to be in remission, and urinary incontinence who presented with progressive worsening shortness of breath, cough, and pleuritic chest pain. 1. 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 Active. -Patient presented with progressive worsening shortness of breath, nonproductive dry cough, pleuritic chest pain and worsening lower extremity edema. -BNP 963. -Serial troponin x3 negative. -Chest x-ray demonstrated cardiomegaly with mild left effusion and increased vascularity suggestive of edema. CTA chest demonstrated mild bilateral pleural effusions. -Echocardiogram demonstrated stage II diastolic dysfunction with E/A ratio 1.3 and E/e' 30 (>15), LV wall thickness is borderline increased, LV EF 50-55%, apical septal wall hypokinesis, apical hypokinesis, moderate mitral regurg, [id number] aortic regurg, moderate to severe tricuspid regurg, RVSP 49 mm Hg based on right atrial pressure of 15 mm Hg. -Received Lasix 40 mg IV x1 in the ED. Continue Lasix 40 mg IV daily and will switch to oral Lasix tomorrow. Replete electrolytes as needed. Goal K > 4.0 and Mg > 2.0. -Continue to monitor closely on telemetry while diuresing. -Monitor strict I&Os and daily weight. Net -800 mL. -Continue heart healthy and low-sodium diet. Continue fluid restriction of 1.5 L daily. -Continue losartan 50 mg daily and propanolol 80 mg daily. -Risk stratified: Hemoglobin A1c is normal at 5.3% and fasting lipid panel well controlled including: Total cholesterol 131, triglycerides 133, LDL 76, HDL low at 28. Encouraged [place] 3 intake. -Provided CHF teaching. -Ordered nuclear medicine stress test as there is some concern for ischemic heart disease and cardiology recommended, however, due to national shortage of radioisotope the patient will not be able to obtain until Tuesday08/21/2018. 2. Acute community-acquired bacterial pneumonia, present on admission. Improving. -Chest x-ray demonstrated patchy retrocardiac opacity possibly human resources hr representative of pneumonia. -CTA chest demonstrated non-specific bilateral subcentimeter pulmonary nodules likely human resources hr representative of resolving pneumonia. Recommend follow-up CT in 3-6 months to ensure resolution. Negative for PE. -Ordered complete pneumonia workup including: Respiratory viral PCR negative. Strep pneumoniae and Legionella urine antigens, pending. Sputum culture not yet collected. Blood cultures x2 have no growth to date. -Venous Doppler ultrasound of bilateral lower extremities negative for DVT. -Continue outpatient course of azithromycin 250 mg daily for 2 additional doses to complete course. Depending on infectious workup and if trends of infectious markers worsening will consider adding additional broad-spectrum coverage with ceftriaxone. -Consulted respiratory therapy for evaluation and treatment. Continue DuoNeb every 4 hours while awake and albuterol nebs every 6 hours as needed for shortness of breath. May use supplemental oxygen if necessary to maintain oxygen saturation 88%. -Continue conservative treatment including Mucinex 1200 mg twice daily for mucolytic effect and Sudafed 60 mg every 6 hours as needed for congestion. -Started glucocorticoid burst with prednisone 40 mg daily x 5 days for reactive airway and possible underlying undiagnosed COPD (20 pack year history) 3. Hypertension, chronic, present on admission. Stable. -Continue home propranolol 80 mg daily and aspirin 81 mg. 4. Hypothyroidism, chronic, present on admission. Presumed stable. -TSH normal at 1.83. -Continue home levothyroxine 125 mcg daily. 5. Urinary incontinence and overactive bladder, chronic, present on admission. Stable. -Completed course of macrobid for possible cystitis. -Continue home fesoterodine 8 mg daily. -She did request a [place] placement initially. Discussed risk of worsening her UTI and she agreed not to have one placed for now. Consider placement only if she is urinating continiously. Disposition: Plan is to continue to diurese until euvolemic and dyspnea on exertion has improved and stress test on 08/21/2018. Likely to discharge home at the earliest 08/21 after stress test depending on results. Quality VTE Deep Vein Thrombosis/Pulmonary Embolism Present on Admission: No
--- NOTE | 2018-08-20 11:08 | PT.IPTN ---
Current Diagnoses Heart failure, unspecified (08/16/18) Physical Therapy Treatment Note M2 PT-IP Current Condition Start: 08/18/18 15:55 Freq: NEEDED Status: Active Protocol: Document 08/18/18 14:50 AB (Rec: 08/18/18 16:14 AB [id number]) Physical Therapy Current Condition Current Condition Evaluation Date 08/18/18 Treatment Diagnosis CHF; difficulty in walking Onset Date 08/16/18 M3 PT-IP Subjective Start: 08/18/18 15:55 Freq: NEEDED Status: Active Protocol: Document 08/20/18 10:15 CLB (Rec: 08/20/18 11:07 CLB [id number]) Subjective Physical Therapy Visit Type Type Treatment Note Visit Start Time 10:15 Visit Stop Time 10:35 Total Visit Minutes 20 Number of MOTOR RUNNER Visits 2 Physical Therapy Visit Comments Patient Comments pt agreeable to do PT Therapy Pain Assessment Pain Present Pain Present Denied Pain M4 PT-IP Mobility and Gait Start: 08/18/18 15:55 Freq: NEEDED Status: Active Protocol: Document 08/20/18 10:15 CLB (Rec: 08/20/18 11:07 CLB [id number]) PT-Bed Mobility Assessment Supine to Sit Supine to Sit Standby Assistance Sit to Supine Sit to Supine Standby Assistance Scooting Scooting to Edge of Bed Standby Assistance PT-Transfer Assessment Sit to and From Stand Sit to and from Stand Standby Assistance Equipment Transfer Assistive Device None Gait Belt Orthotic/Prosthetic Devices or Brace: No Transfers Transfer Destination Bed Transfer Technique Stand Step Pivot Transfer Ability Level of Assist Contact Guard Assistance Gait Assessment Gait Gait Assistance Required: Standby Assistance Contact Guard Assist Distance (Feet) 230 Able to Maintain Weight Bearing Status Yes During Gait Assistive Devices Assistive Device Gait Belt 4 Wheeled Walker Orthotic/Prosthetic Devices or Brace: No Gait Deviations General Gait Pattern Antalgic Decreased Stride Length Decreased Feet Clearance Step-to Gait Factors Limiting Gait Function Factors Limiting Gait Function Decreased Activity Tolerance Decreased Strength Poor Balance Comments Gait Comments O2 on RA with activity 93-97%, HR 71-75. Pt ambulated ~15ft w/o AD with CGA but had weakness on left side with lateral lean. Pt used 4WW for remainder of walk SBA and able to increase ambulation to ~ 230ft. Stair Climbing Assessment Comments Stair Climbing Comments Pt to d/c to boat when medically stable with 1 step R rail to get on boat and 4 steps R rail once on boat. M5 PT-IP Objective Assessments Start: 08/18/18 15:55 Freq: NEEDED Status: Active Protocol: Document 08/18/18 14:50 AB (Rec: 08/18/18 16:14 AB [id number]) Orientation Orientation/Cognition Level of Alertness Alert Orientation Name Age Birthday Date Place Situation Language Function Ability No Deficits Noted Safety Awareness Understands Safety Issues Memory Description No Deficits Noted Gross Range of Motion Lower Extremity ROM Assessment Within Functional Limits Strength Lower Extremity Strength Assessment Within Functional Limits Coordination Assessment Gross Coordination Gross Coordination WNL Sensation Assessment Sensation Gross Sensation WNL Muscle Tone Muscle Tone WNL Yes M6 PT-IP Treatment Start: 08/18/18 15:55 Freq: NEEDED Status: Active Protocol: Document 08/20/18 11:08 CLB (Rec: 08/20/18 11:08 CLB [id number]) Physical Therapy Treatment Exercises Exercises Ankle Pumps Gluteal Sets M7 PT-IP Assessment and Plan Start: 08/18/18 15:55 Freq: NEEDED Status: Active Protocol: Document 08/20/18 10:15 CLB (Rec: 08/20/18 11:07 CLB [id number]) PT Summary Assessment and Plan Summary Assessment Summary Pt remains safe with mobility when using 4WW. Pt continues to need cues for posture. Pt unsteady w/o AD with lateral lean and c/o left sided weakness of LLE. Pt will return to boat once d/c. Pt will need stair training. Goals Bed Mobility Goal Independent Transfer Goal Independent Four Wheeled Walker Gait Goal Independent Four Wheel Walker Gait Distance 250 Other Goals up/down 14 steps with bilateral rails SBA Days to Meet Goals 3 Frequency of Treatment Frequency Of Treatment Once a Day Treatment Plan Physical Therapy Treatment Plan Bed Mobility Training Transfer Training Gait Training Therapeutic Exercise Balance Retraining Discharge Planning Neuromuscular Re-ed Coordination Retraining Manual Therapy Other Recommendations and Next Treatment ambulation using 4WW, standing Focus balance/tolerance, stair climbing Recommendations To Nursing Amount of Assist Needed 1 Person Assist Discharge Recommendations PT Discharge Recommendations Home with Assistance Outpatient PT Other Discharge Recommendations Boat per pt.
[2018-08-20] MEDS: SODIUM CHLORIDE 0.9% FLUSH 10 ML IV ×2 (11:23→20:01)
[2018-08-20 17:04] LABS: BUN Creatinine Ratio 37.5 (6-22); Blood Urea Nitrogen 30 mg/dL (7-17); Calcium 9.2 mg/dL (8.4-10.2); Carbon Dioxide 29 mmol/L (22-32); Chloride 99 mmol/L (98-107); Estimated Glomerular Filt Rate > 60.0 mL/min (>60); Glucose 163 mg/dL (80-110); HEMOLYSIS < 15 (0-50); Potassium 4.5 mmol/L (3.4-5.1); Sodium 138 mmol/L (137-145)
[2018-08-20 17:10] LABS: Anti-Streptolysin O Antibody < 50 IU/mL (< 200)
--- NOTE | 2018-08-20 17:16 | PC.NURSE ---
Addendum entered by Sagrario Dolan R.N. 08/20/18 20:51: Pt had discussion w/MD about a-fib. Began eliquis and metoprolol this evening. Denies any discomfort. Tele shows a-fib/BBB per ICU staff. Denies any discomfort at this time. Call light w/in reachg, Pt calls appropriately for needs. Continue w/plan of care. Addendum entered by Sagrario Dolan R.N. 08/20/18 20:44: Original Note: Pt up ad benjamin in room. Denies any discomfort at this time. HL right hand intact/patent. Tele showing new a fib per ICU staff. MD aware, EKG done. SpO2 94% RA, lungs diminishes @ bases. Call light w/in reach. Pt calls appropriately for needs.
[2018-08-20] MEDS: METOPROLOL IR 25 MG TABLET PO (20:01)
[2018-08-20] MEDS: APIXABAN 5 MG TABLET PO (20:01)
--- NOTE | 2018-08-21 02:23 | PC.NURSE ---
Received a phone call from Lorin in ICU that the patient has converted back to sinus rhythm per the telemetry strip. Heart rate is ranging from 57 to 65 bpm.
[2018-08-21 06:00] VITALS: BP 114/67; PULSE 52; RESP 16; TEMP 37; O2SAT 95
[2018-08-21 06:02] LABS: Alanine Aminotransferase 29 IU/L (9-52); Albumin 3.6 g/dL (3.5-5.0); Albumin Globulin Ratio 1.1 (1.0-2.8); Alkaline Phosphatase 90 U/L (38-126); Aspartate Aminotransferase 17 IU/L (14-36); Bilirubin Total 0.5 mg/dL (0.2-1.3); Blood Urea Nitrogen 28 mg/dL (7-17); Calcium 9.1 mg/dL (8.4-10.2); Carbon Dioxide 28 mmol/L (22-32); Chloride 103 mmol/L (98-107); Estimated Glomerular Filt Rate > 60.0 mL/min (>60); Globulin 3.2 g/dL (1.7-4.1); Glucose 109 mg/dL (80-110); HEMOLYSIS < 15 (0-50); Magnesium 2.1 mg/dL (1.6-2.3); Potassium 3.9 mmol/L (3.4-5.1); Sodium 140 mmol/L (137-145); Total Protein 6.8 g/dL (6.3-8.2)
[2018-08-21 06:11] LABS: Hematocrit 38.1 % (36-46); Hemoglobin 13.1 g/dL (12.0-16.0); Mean Corpuscular HGB Conc 34.4 % (30-36); Mean Corpuscular Hemoglobin 30.9 PG (26-34); Mean Corpuscular Volume 89.9 fL (80-100); Platelet Count 340 X10^3/uL (150-400); Red Blood Cell Count 4.24 X10^6/uL (4.0-5.2); White Blood Cell Count 16.4 X10^3/uL (4.5-11.0)
[2018-08-21 06:14] LABS: Add Manual Diff / Slide Review YES
[2018-08-21 06:36] LABS: Neutrophils Absolute Manual 13120 /uL (3000-5900); Total Cells Counted 100
[2018-08-21 06:37] LABS: RBC Morphology Normal Morphology
[2018-08-21 08:05] VITALS: PULSE 62; RESP 17; TEMP 36.5; O2SAT 94
[2018-08-21 08:39] VITALS: O2SAT 94
--- NOTE | 2018-08-21 09:01 | PC.NURSE ---
Day shift: Pt off unit for stress test at approx 0900.
--- NOTE | 2018-08-21 09:14 | PM.TREADMILL ---
Cardiac Stress Test Report Referral & Results Date Patient Seen: 08/21/18 Time Patient Seen: 09:14 Requesting provider: Rosemary Terrell Indication: Congestive heart failure Rest ECG: Left bundle branch block Procedure Note: After both written and verbal informed consent the patient had an IV started by the diagnostic imaging RN, and then was hooked up to the treadmill monitoring system. The Lexiscan material, and then the Cardiolite tracer, were administered sequentially. An additional 3 min was spent monitoring the patient while supine on the gurney. The patient had a normal response to all infused materials. Impression: Normal response to infuse materials Please see perfusion imaging report for details regarding possible ischemia Please note: Actual ECG tracings can be found in the PACS system.
--- NOTE | 2018-08-21 09:30 | PT-IP ANOTE ---
Pt off the floor for a stress test, will attempt PT session again later today.
[2018-08-21] MEDS: APIXABAN 5 MG TABLET PO (10:18)
[2018-08-21] MEDS: FUROSEMIDE 40 MG TABLET PO (10:18)
[2018-08-21 10:19] VITALS: BP 133/73; PULSE 61; RESP 15; TEMP 36.7; O2SAT 95
[2018-08-21] MEDS: ASPIRIN EC 81 MG TABLET PO (10:19)
[2018-08-21] MEDS: LOSARTAN 50 MG TABLET PO (10:19)
[2018-08-21] MEDS: METOPROLOL IR 25 MG TABLET PO (10:19)
[2018-08-21] MEDS: predniSONE 20 MG TABLET 40 MG PO (10:20)
[2018-08-21] MEDS: SODIUM CHLORIDE 0.9% FLUSH 10 ML IV (10:20)
[2018-08-21 12:09] VITALS: BP 141/66; PULSE 59; RESP 14; TEMP 36.7; O2SAT 96
--- NOTE | 2018-08-21 13:00 | PT.IPTN ---
Current Diagnoses Heart failure, unspecified (08/16/18) Physical Therapy Treatment Note M2 PT-IP Current Condition Start: 08/18/18 15:55 Freq: NEEDED Status: Active Protocol: Document 08/18/18 14:50 AB (Rec: 08/18/18 16:14 AB [id number]) Physical Therapy Current Condition Current Condition Evaluation Date 08/18/18 Treatment Diagnosis CHF; difficulty in walking Onset Date 08/16/18 M3 PT-IP Subjective Start: 08/18/18 15:55 Freq: NEEDED Status: Active Protocol: Document 08/21/18 13:00 RS (Rec: 08/21/18 14:11 RS [id number]) Subjective Physical Therapy Visit Type Type Treatment Note Visit Start Time 12:30 Visit Stop Time 13:00 Total Visit Minutes 30 Physical Therapy Visit Comments Patient Comments Pt reports she's hopefully leaving later today and can't wait. Patient Goals go home today Therapy Pain Assessment Pain When Pain Assessed At Rest Pain Present Pain Present Denied Pain M4 PT-IP Mobility and Gait Start: 08/18/18 15:55 Freq: NEEDED Status: Active Protocol: Document 08/21/18 13:00 RS (Rec: 08/21/18 14:11 RS [id number]) PT-Bed Mobility Assessment Supine to Sit Supine to Sit Independent Sit to Supine Sit to Supine Independent Scooting Scooting to Edge of Bed Independent PT-Transfer Assessment Sit to and From Stand Sit to and from Stand Independent Equipment Transfer Assistive Device None Transfers Transfer Destination Bed Chair Transfer Technique Stand Step Pivot Transfer Ability Level of Assist Independent Gait Assessment Gait Gait Assistance Required: Standby Assistance Assistive Devices Assistive Device None 4 Wheeled Walker Comments Gait Comments gait quality slightly more normalized compared to previous sessions, definitely more stable Stair Climbing Assessment Evaluation Level of Assist On Stairs Standby Assistance Devices Stair Climbing Assistive Devices Left Railing Right Railing PT-Balance Assessment Sitting Balance and Reactions Static Sitting Balance Ability Normal Dynamic Sitting Balance Ability Good Standing Balance and Reactions Static Standing Balance Ability Good Dynamic Standing Balance Ability Good Device Used none M5 PT-IP Objective Assessments Start: 08/18/18 15:55 Freq: NEEDED Status: Active Protocol: Document 08/18/18 14:50 AB (Rec: 08/18/18 16:14 AB [id number]) Orientation Orientation/Cognition Level of Alertness Alert Orientation Name Age Birthday Date Place Situation Language Function Ability No Deficits Noted Safety Awareness Understands Safety Issues Memory Description No Deficits Noted Gross Range of Motion Lower Extremity ROM Assessment Within Functional Limits Strength Lower Extremity Strength Assessment Within Functional Limits Coordination Assessment Gross Coordination Gross Coordination WNL Sensation Assessment Sensation Gross Sensation WNL Muscle Tone Muscle Tone WNL Yes M6 PT-IP Treatment Start: 08/18/18 15:55 Freq: NEEDED Status: Active Protocol: Document 08/20/18 11:08 CLB (Rec: 08/20/18 11:08 CLB [id number]) Physical Therapy Treatment Exercises Exercises Ankle Pumps Gluteal Sets M7 PT-IP Assessment and Plan Start: 08/18/18 15:55 Freq: NEEDED Status: Active Protocol: Document 08/21/18 13:00 RS (Rec: 08/21/18 14:11 RS [id number]) PT Summary Assessment and Plan Potential Rehabilitation Potential Good Status of Condition at Evaluation Stable Summary Impairments Balance Gait Activity Tolerance Progress Towards Goals Safe For Discharge Assessment Summary Pt's gait continues to improve with each session. Pt looking much better today without AD, still recommend 4WW for longer distances or for uneven surfaces. Pt in agreement. Pt is discharging later today and is safe to do so. Acute PT will sign off. Frequency of Treatment Frequency Of Treatment Discharge Recommendations To Nursing Amount of Assist Needed Standby Assistance Discharge Recommendations PT Discharge Recommendations Home with Assistance Outpatient PT
--- NOTE | 2018-08-21 14:50 | DI.NM.S_ITS ---
DATE OF SERVICE: 08/21/2018 PROCEDURE: Lexiscan perfusion study. INDICATIONS: Underlying left bundle-branch block, history of CHF, chest pain. RADIOPHARMACEUTICAL: 20.4 mCi technetium-99m Myoview IV was injected at stress. Please note, this is a stress perfusion study only. CARDIAC STRESS: Patient underwent IV Lexiscan perfusion study under the supervision of an attending staff. She received IV Lexiscan as per protocol. She remained hemodynamically stable. Baseline EKG revealed sinus with left bundle-branch block. Stress EKG did not reveal any new significant inducible ischemic changes or arrhythmias. No significant symptoms were reported. RAW DATA: There was increased subdiaphragmatic activity as well as breast shadow seen. Her weight is 212 pounds. GATED STUDY: Stress LV ejection fraction 78%. No significant wall motion abnormalities. Stress LV end-diastolic volume is 99 mL. Lung/heart ratio is 0.28, which is within normal limits. MYOCARDIAL PERFUSION SCAN: Stress supine and stress prone images were compared to each other. Stress supine images revealed small -sized mildly decreased perfusion of basal inferior wall as well as basal anterior wall and distal anterior septum. During prone images, basal inferior wall perfusion defect got completely resolved. There was partial improvement in the proximal anterior wall and distal anteroseptal defect as well. CONCLUSION: Patient has small sized, mildly decreased perfusion of distal anterior septum and proximal anterior wall which was partially improved during prone images. Basal inferior wall defect got completely resolved during prone images. Patient has underlying left bundle-branch block as well as breast shadow seen during raw images. [id number] anterior wall and apex have normal myocardial perfusion which goes against significant occlusive proximal left anterior descending (LAD) disease. Likely, we are dealing with perfusion defect due to left bundle-branch block and breast tissue attenuation. Left ventricular (LV) function is preserved. Lung/heart ratio is normal. Hence overall, this is a low-risk myocardial perfusion study. Clinical correlation is recommended. JhPao - SHARATH/talon/ doc#: [id number]/job#: [id number] dd: 08/21/2018 13:23:00 dt: 08/21/2018 14:39:00 DICTATING MD/COPIES TO: Jose R Lucia MD COPIES MNE: HALIE
--- NOTE | 2018-08-21 14:51 | P.DS_ITS ---
History of Present Illness Date Patient Seen: 08/16/18 Chief complaint: Short of breath Narrative: Written by Maggie WHITAKER: Pao Peñaloza is a delightful 72 y.o. female who is summering in [place] and is from [facility]. She had flown in from [place] within the past month and has been travelling through the [facility] with her daughter, son-in-law and granddaughter. She initially went to [facility] for a cough, shortness of breath, a fever of 102, and diagnosed with pneumonia. She was given a 5-day Z-Pack. They did a bilateral leg ultrasound to see if she might have a DVT and none was identified. Prior to her flight, the patient developed dysuria, called her PCP who called in a prescription for macrobid for which she is still taking. Daughter and patient states yesterday she seemed to have finally improved, but today her shortness of breath symptoms worsened. She presents today with a cough, pleuritic chest pain, and shortness of breath. She felt more improved, denied fever prior to coming to the ED. She was oxygenating from 88-90%, had lower extremity swelling for which now she complains of pain and swelling of her right calf. She was given Lasix 40 mg IV X [address] angio was negative for a PE, however noted small bilateral pleural effusions, and sub- centimeter nodules. She requests [place] placement stating she has chronic in continence, but denies urinary pain at this time. She takes Toviaz for urinary incontinence Daughter Chika Collier provides some history as well. She states approximately 5 years ago, the patient was in surgery to have 5 level lumbar fusion. Interoperatively, she became very hypotensive and the surgery was cut short, but was diagnosed with a left bundle branch block. She was to follow up with cardiology, however, in her recovery period, she fell and fractured her sacrum and was lost to cardiology follow-up. Discharge Providers Date of admission: 08/16/18 20:14 Discharge Date: 08/21/18 Consults: 08/16/18 17:41 Consult to Respiratory Therapy Evaluate & Treat Comment: Physician Instructions: Evaluate and treat 08/18/18 13:43 Consult to Physical Therapy Evaluate & Treat Comment: Physician Instructions: Evaluate and Treat 06/29/19 15:54 Consult to Respiratory Therapy Evaluate & Treat Comment: Physician Instructions: Evaluate and treat Discharge provider: Rosemary Terrell DO Summary Discharge Diagnosis: 1. 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 Acute exacerbation resolved. 2. Acute community-acquired bacterial pneumonia, present on admission. Resolved. 3. Atrial fibrillation, acute unclear, not present on admission. Resolved. 4. Hypertension, chronic, present on admission. Stable. 5. Hypothyroidism, chronic, present on admission. Presumed stable. 6. Urinary incontinence and overactive bladder, chronic, present on admission. Stable. Hospital Course: Pao Peñaloza is a 72-year-old female with a past medical history significant for hypertension, left bundle branch block, hypothyroidism, breast cancer status post lumpectomy, chemo and radiation thought to be in remission, and urinary incontinence who presented with progressive worsening shortness of breath, cough, and pleuritic chest pain. 1. 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 Acute exacerbation resolved. -Patient presented with progressive worsening shortness of breath, nonproductive dry cough, pleuritic chest pain and worsening lower extremity edema. -BNP 963. -Serial troponin x3 negative. -Chest x-ray demonstrated cardiomegaly with mild left effusion and increased vascularity suggestive of edema. CTA chest demonstrated mild bilateral pleural effusions. -Echocardiogram demonstrated stage II diastolic dysfunction with E/A ratio 1.3 and E/e' 30 (>15), LV wall thickness is borderline increased, LV EF 50-55%, apic al septal wall hypokinesis, apical hypokinesis, moderate mitral regurg, [id number] aortic regurg, moderate to severe tricuspid regurg, RVSP 49 mm Hg based on right atrial pressure of 15 mm Hg. -Received Lasix 40 mg IV x1 in the ED. Continued Lasix 40 mg IV daily and switched to Lasix 40 mg PO daily. Repleted electrolytes as needed. Goal K > 4.0 and Mg > 2.0. -Continued to monitor closely on telemetry while diuresing. -Monitored strict I&Os and daily weight. Net -800 mL. -Continued heart healthy and low-sodium diet 2g daily. Continued fluid restriction of 1.5 L daily. -Continued losartan 50 mg daily. Discontinued propranolol 80 daily and started 40 mg -Risk stratified: Hemoglobin A1c is normal at 5.3% and fasting lipid panel well controlled including: Total cholesterol 131, triglycerides 133, LDL 76, HDL low at 28. Encouraged [place] 3 intake. -Provided CHF teaching. -Nuclear medicine stress test was performed as there was concern for ischemic heart disease and cardiology recommended which was a low probability test and her apical and septal hypokinesis are related to bundle branch block per secondary spanish teacher Dr. Lucia. 2. Acute community-acquired bacterial pneumonia, present on admission. Resolved. -Chest x-ray demonstrated patchy retrocardiac opacity possibly dermatology sales representative of pneumonia. -CTA chest demonstrated non-specific bilateral subcentimeter pulmonary nodules likely dermatology sales representative of resolving pneumonia. Recommend follow-up CT in 3-6 months to ensure resolution. Negative for PE. -Ordered complete pneumonia workup including: Respiratory viral PCR negative. Strep pneumoniae and Legionella urine antigens, pending. Sputum culture not yet collected. Blood cultures x2 have no growth to date. -Venous Doppler ultrasound of bilateral lower extremities negative for DVT. -Continued outpatient course of azithromycin 250 mg daily for 2 additional doses to complete course. Depending on infectious workup and if trends of infectious markers worsening will consider adding additional broad-spectrum coverage with ceftriaxone. -Consulted respiratory therapy for evaluation and treatment. Continue DuoNeb every 4 hours while awake and albuterol nebs every 6 hours as needed for shortness of breath. May use supplemental oxygen if necessary to maintain oxygen saturation 88%. -Continued conservative treatment including Mucinex 1200 mg twice daily for mucolytic effect and Sudafed 60 mg every 6 hours as needed for congestion. -Received glucocorticoid burst with prednisone 40 mg daily x 3 days for reactive airway and possible underlying undiagnosed COPD (20 pack year history) with significant improvement in aeration and resolution of bronchospasm. 3. Atrial fibrillation, acute unclear, not present on admission. Resolved. -Patient went into atrial fibrillation yesterday afternoon 08/20/2018. -Switched propanolol 80 mg daily to metoprolol 25 mg twice daily. Heart rate was well controlled and patient spontaneously converted to sinus rhythm at 0200 today 08/21/18. Continued metoprolol 25 mg twice daily. -Started and continued Eliquis 5 mg twice daily as CHADS2 Vasc score was 4 and she is high risk of VTE. 4. Hypertension, chronic, present on admission. Stable. -Continued home propranolol 80 mg daily and aspirin 81 mg. 5. Hypothyroidism, chronic, present on admission. Presumed stable. -TSH normal at 1.83. -Continued home levothyroxine 125 mcg daily. 6. Urinary incontinence and overactive bladder, chronic, present on admission. Stable. -Completed course of macrobid for possible cystitis. -Continued home fesoterodine 8 mg daily. Status at Discharge Functional status at discharge: uses cane/walker Overall status at discharge: patient is back to baseline Exam Vital Signs (past 8 hours): - 08/21/18 08:05 08/21/18 08:39 08/21/18 10:19 Temperature 97.7 F 98.1 F Pulse Rate 62 61 Respiratory Rate 17 15 Blood Pressure 133/73 Pulse Oximetry 94 94 95 08/21/18 12:09 Temperature 98.1 F Pulse Rate 59 L Respiratory Rate 14 Blood Pressure 141/66 H Pulse Oximetry 96 Fraction of Inspired Oxygen 21 Oxygen Delivery Method Room Air Oxygen Flow Rate 0 Narrative Exam Narrative: General: Elderly female sitting in bed and in no acute distress, well-developed, well-nourished, emotionally labile at times but appropriately interactive. HEENT: Normocephalic, atraumatic. External ears without defect. Pupils equal, round, and reactive to light. Anicteric sclerae, moist conjunctivae, and no lid lag. Oropharynx free of erythema and cobble stoning with moist mucosa. Neck: Supple with full range of motion. No jugular venous distension. No lymphadenopathy or thyromegaly. Cardiovascular: Regular rate and rhythm without murmurs, rubs, or gallops appreciated. Pulmonary: Clear to auscultation bilaterally throughout all lung rodríguez. No crackles, wheeze or rhonchi. Normal respiratory effort with no use of accessory muscles. Abdomen: Soft, obese, bowel sounds present, nontender, nondistended. No hepatosplenomegaly or masses appreciated. Extremities: No clubbing, cyanosis or edema. Skin: Normal temperature, turgor, and texture; no rash, ulcers, or subcutaneous nodules appreciated. Neurological: Cranial nerves grossly intact. Psychiatric: Depressed mood with emotional lability and normal affect. Alert and oriented to person, place, and time. Objective Labs Result Diagrams: 08/21/18 05:20 08/21/18 05:20 Labs: Laboratory Results - last 24 hr 08/20/18 08/21/18 08/21/18 16:45 05:20 05:20 WBC 16.4 H RBC 4.24 Hgb 13.1 Hct 38.1 MCV 89.9 MCH 30.9 MCHC 34.4 RDW 14.0 Plt Count 340 Neut % (Auto) Not Reportable Lymph % (Auto) Not Reportable [place] % (Auto) Not Reportable Eos % (Auto) Not Reportable Baso % (Auto) Not Reportable Lymph # (Auto) Not Reportable [place] # (Auto) Not Reportable Baso # (Auto) Not Reportable Total Counted 100 Seg Neutrophils % 74.0 H Band Neutrophils % 6.0 Lymphocytes % (Manual) 15.0 L Monocytes % (Manual) 3.0 Eosinophils % (Manual) 1.0 L Basophils % (Manual) 1.0 Neutrophils # (Manual) 82922 H RBC Morphology Normal morphology Sodium 138 140 Potassium 4.5 3.9 Chloride 99 103 Carbon Dioxide 29 28 BUN 30 H 28 H Creatinine 0.80 0.80 Estimated GFR > 60.0 > 60.0 BUN/Creatinine Ratio 37.5 H 35.0 H Glucose 163 H 109 Calcium 9.2 9.1 Magnesium 2.0 2.1 Total Bilirubin 0.5 AST 17 ALT 29 Alkaline Phosphatase 90 Total Protein 6.8 Albumin 3.6 Globulin 3.2 Albumin/Globulin Ratio 1.1 Discharge Plan Discharge Plan Patient Disposition: Home Discharge comment: Your being discharged home. You have combined systolic and diastolic heart failure. You have been provided CHF teaching. Please follow a heart healthy diet which is low in cholesterol, fat, and sodium. You need to stay on a 2 g or less sodium restriction and a 1.5 L fluid restriction (50-60 oz). Please weigh yourself daily and if you gain more than 2-3 lb you will need to contact your provider immediately. You have paroxysmal atrial fibrillation and have been started on a potent blood thinner called Eliquis 5 mg twice daily. We preauthorized this medication through your insurance and it will be approximately $116/per month. You have been prescribed metoprolol tartrate 25 mg twice daily to help control your heart rate and to treat your heart failure. Continue your other medications as prescribed. Your stress test was low probability and the wall motion changes are consistent with left bundle branch block which you have had since your operation several years ago. Recommend continued outpatient physical therapy when you return home. Please follow-up with your PCP as soon as you return home to you talk and place a referral for Cardiology. Discharge Med Rec/Prescriptions Prescriptions: New metoprolol tartrate 25 mg Tablet 25 mg PO BID Qty: 60 RF: 0 Eliquis 5 mg Tablet 5 mg PO BID Qty: 60 RF: 0 furosemide 40 mg Tablet 40 mg PO DAILY Qty: 30 RF: 0 Continued losartan 50 mg tablet 50 mg PO DAILY RF: 0 levothyroxine 125 mcg tablet 125 mcg PO DAILY RF: 0 albuterol sulfate 90 mcg/actuation HFA aerosol inhaler 1 puff inhalation QID PRN (Reason: Wheezing) RF: 0 fesoterodine 8 mg tablet extended release 24 hr 8 mg PO DAILY RF: 0 Discontinued azithromycin 250 mg tablet 250 mg PO DAILY RF: 0 propranolol 80 mg capsule,extended release 24 hr 80 mg PO DAILY RF: 0 nitrofurantoin monohyd/m-cryst 100 mg capsule 1 tab PO BID RF: 0 Follow up/Referrals: Jigna Shen PA-C [Physician] - (One time 1 week follow up with [facility] to establish care upon discharge. Appointment was made for August 28 2018 at 3:40 pm to check in.) Provider Discharge Instructions Diet: Low-fat, Low-sodium and Low-cholesterol Diet comment: 2g low sodium and 1.5 L fluid restricted diet Activity: Activity as tolerated with forward wheeled walker. Recommend out patient PT. Visit Report/Discharge Packet Instructions: DI for Heart Failure, DI for Pneumonia -- Adult, DI for Atrial Fibrillation, Fluid Restricted Diet, Low-Sodium Diet, How to Keep Track of Your Weight When You Have Heart Failure Discharge Data Attending Provider: Maggie Awad Admit Date/Time: 08/16/18 20:14 Quality VTE Deep Vein Thrombosis/Pulmonary Embolism Present on Admission: No
--- NOTE | 2018-08-21 17:09 | PC.NURSE ---
Pt given discharge instructions by staff. Reviewed medications until pt had understanding. HL discontinued intact. Pt escorted by staff to waiting vehicle Discharged in stable condition.
== END 2018-08-21 16:55 | disposition home or self-care (01) | DRG 291 ==
LOC: ED 18:02 → AC 20:15
PROVIDERS: Emergency Medicine; Internal Medicine; Admitting Provider Nurse Practitioner Family; Emergency Provider Emergency Medicine; Visit Provider Nurse Practitioner Family
DX: I11.0 Hypertensive heart disease with heart failure (principal); J15.9 Unspecified bacterial pneumonia; N39.0 Urinary tract infection, site not specified; I50.41 Acute combined systolic (congestive) and diastolic (congestive) heart failure; I44.7 Left bundle-branch block, unspecified; I48.91 Unspecified atrial fibrillation; E03.9 Hypothyroidism, unspecified; Z87.891 Personal history of nicotine dependence; R32 Unspecified urinary incontinence
CPT/HCPCS: 36415; 36591; 71045; 71275; 78451; 80048; 80053; 80061; 81001; 82550; 83036; 83605; 83735; 83880; 84145; 84443; 84484; 85025; 85610; 85730; 86060; 87040; 87449; 87633; 93005; 93010; 93016; 93017; 93018; 93306; 93970; 94640; 94760; 96374; 96375; 97116; 97161; 97530; 99284; 99285; A9502; J1650; J1940; J2785; J2930; Q9967

== ENCOUNTER 2018-08-22 22:12 | Observation (INO) | payer MEDICARE, OTHER, SELFPAY ==
[2018-08-16 21:15] VITALS: BMI 32.9
[2018-08-22 22:20] VITALS: BP 114/55; PULSE 51; RESP 11; TEMP 36.4; O2SAT 96
[2018-08-22 22:26] VITALS: BP 114/55; PULSE 54; RESP 16; TEMP 36.4; O2SAT 96; BMI 33.3
[2018-08-22 23:00] VITALS: BP 95/45; PULSE 60; RESP 18; O2SAT 97
--- NOTE | 2018-08-22 23:18 | ED.DIZZY ---
HPI - Dizziness General Chief Complaint: Dizziness Stated Complaint: Dizzy Time Seen by Provider: 08/22/18 22:19 Source: patient and family Mode of arrival: EMS Limitations: no limitations History of Present Illness HPI Narrative: 73-year-old female nonsmoker with history AFib, recent pneumonia, and hospitalization for acute CHF resents by EMS after collapsing after dinner tonight. She was just discharged yesterday with shortness of breath, acute heart failure and resolving pneumonia. She was placed on diuretics and a fluid restriction. She is dizzy, weak and lightheaded. She states she is dizzy upon standing with some improvement upon laying down. She has had a poor appetite and generally feels unwell. She denies any ongoing difficulty breathing and denies any chest pain or shortness of breath. She denies nausea, vomiting or diarrhea. She denies any fever or shaking chills MD complaint: dizziness and lightheadedness Timing: gradual onset Description: lightheadedness and near-syncope History of similar episodes: No History of trauma: No Severity: moderate Relieving factors: rest Exacerbating factors: position Associated symptoms: denies other symptoms Related Data Home Medications Medication Instructions Recorded Confirmed albuterol sulfate 1 puff INHALATION QID PRN 08/16/18 08/23/18 fesoterodine 8 mg PO DAILY 08/16/18 08/23/18 levothyroxine 125 mcg PO DAILY 08/16/18 08/23/18 losartan 50 mg PO DAILY 08/16/18 08/23/18 Previous Rx's Medication Instructions Recorded apixaban [Eliquis] 5 mg PO BID #60 tab 08/21/18 furosemide 40 mg PO DAILY #30 tab 08/21/18 metoprolol tartrate 25 mg PO BID #60 tab 08/21/18 Allergies Allergy/AdvReac Type Severity Reaction Status Date / Time No Known Drug Allergies Allergy Verified 08/22/18 22:26 Review of Systems Constitutional Denies chills, Denies fever(s), Denies lethargy and Denies weakness Eyes Denies change in vision, Denies eye discharge, Denies irritation and Denies loss of vision ENT Ears, Nose, Mouth, and Throat: Denies change in voice, Denies neck pain and Denies sore throat Cardiovascular Denies chest pain, Denies irregular heart rhythm, Reports lightheadedness, Denies palpitations, Denies dyspnea, Denies dyspnea on exertion and Denies orthopnea Respiratory Denies cough, Denies dyspnea, Denies dyspnea on exertion and Denies wheezing Gastrointestinal Gastrointestinal: Denies abdominal pain, Denies change in bowel habits, Denies diarrhea, Denies nausea and Denies vomiting Genitourinary Denies hematuria, Denies flank pain, Denies urinary incontinence and Denies urinary urgency Musculoskeletal Denies neck pain Integumentary/Breasts Denies pruritus, Denies erythema, Denies rash and Denies wounds Neurologic Denies confusion, Denies loss of vision and Denies weakness Psychiatric Denies anxiety, Denies confusion, Denies depression, Denies homicidal ideation and Denies suicidal ideation Endocrine Denies palpitations Hematologic/Lymphatic Denies easy bruising Allergic/Immunologic Denies wheezing [facility] Medical History (Updated 08/23/18 @ 02:22 by JULIANNE Dunlap) Status post chemoradiation (Chronic) Breast cancer (Chronic) Fusion of lumbar spine (Chronic) Hypertension (Chronic) Hypothyroid (Chronic) LBBB (left bundle branch block) (Chronic) Urinary incontinence (Chronic) Surgical History H/O lumpectomy (Chronic) Hx of cholecystectomy (Chronic) Social History marital status: household members: spouse Smoking Status: Former smoker alcohol intake: current substance use type: does not use additional social history: [employer] in [place] Social History marital status: household members: spouse Smoking Status: Former smoker alcohol intake: current substance use type: does not use additional social history: [employer] in [place] Exam Narrative Exam Narrative: GENERAL: 73-year-old female resting comfortably, obviously weak with dry mucous membranes and poor skin turgor HEAD: Atraumatic. Normocephalic. No temporal or scalp tenderness. EYES: Pupils equal round and reactive. Extraocular motions intact. No scleral icterus. No injection or drainage. ENT: Dry mucous membranes. Nose without bleeding, purulent drainage or septal hematoma. Throat without erythema, tonsillar hypertrophy or exudate. Uvula midline. Airway patent. NECK: Trachea midline. No JVD or lymphadenopathy. Supple, nontender, no meningeal signs. CARDIOVASCULAR: Regular rate and rhythm without murmurs, gallops, or rubs. RESPIRATORY: Clear to auscultation. Breath sounds equal bilaterally. No wheezes, rales, or rhonchi. GASTROINTESTINAL: Abdomen soft, non-tender, nondistended. No hepato-splenomegaly, or palpable masses. No guarding. EXTREMITIES: No clubbing, cyanosis, or edema. No joint tenderness, effusion, or edema noted. BACK: Nontender without deformity or crepitance. No flank tenderness. NEURO: AOx3. SKIN: No rash or erythema. Por skin turgor Initial Vital Signs Initial Vital Signs: Vital Signs Temperature 97.6 F 08/22/18 22:20 Pulse Rate 51 L 08/22/18 22:20 Respiratory Rate 11 L 08/22/18 22:20 Blood Pressure 114/55 L 08/22/18 22:20 Pulse Oximetry 96 08/22/18 22:20 Course Orders Ordered: ED Orders 08/24/18 05:00 Basic Metabolic Panel Routine Complete Blood Count AUTO DIFF Routine Albuterol/Ipratropium (Duoneb) 3 ml INH [id number] PRN PRN Reason: Bronchospasm Apixaban (Eliquis) 5 mg PO BID [facility] Last Admin: 08/23/18 19:55 Dose: 5 mg Admin: 08/23/18 09:34 Dose: 5 mg Sodium Chloride (Normal Saline 0.9%) 1,000 mls @ 70 mls/hr IV CONT [facility] Stop: 10/22/18 17:18 Last Admin: 08/23/18 17:02 Dose: 70 mls/hr Levothyroxine Sodium (Synthroid) 125 mcg PO 0700 [facility] Last Admin: 08/23/18 09:34 Dose: 125 mcg Losartan Potassium (Cozaar) 25 mg PO DAILY [facility] Last Admin: 08/23/18 17:03 Dose: 25 mg Metoprolol Tartrate (Lopressor) 12.5 mg PO BID [facility] Last Admin: 08/23/18 19:55 Dose: 12.5 mg Ondansetron HCl (Zofran) 4 mg IV Q8HR PRN PRN Reason: Nausea And Vomiting Discontinued Medications Sodium Chloride (Normal Saline 0.9%) 500 mls @ 1,000 mls/hr IV BOLUS ONE Stop: 08/23/18 00:32 Last Infusion: 08/23/18 01:52 Dose: 0 mls/hr Infusion: 08/23/18 01:13 Dose: 700 mls/hr Admin: 08/23/18 01:06 Dose: 1,000 mls/hr Sodium Chloride (Normal Saline 0.9%) 1,000 mls @ 70 mls/hr IV CONT CYNDI Stop: 08/23/18 17:18 Last Admin: 08/23/18 03:18 Dose: 70 mls/hr Reevaluation(s) Reevaluation #1: patient symptomatic with orthostatics, dizzy and weak. Reevaluation #2: no improvement with gentle hydration. Still no urine. Vital Signs - 8 hr 08/23/18 16:06 08/23/18 17:03 08/23/18 19:35 Temperature 97.9 F 98.3 F Pulse Rate 63 63 64 Pulse Rate [Orthostatic Lying] Pulse Rate [Orthostatic Sitting] Pulse Rate [Orthostatic Standing] Respiratory Rate 18 18 Blood Pressure 124/59 L 124/59 L 116/65 Blood Pressure [Orthostatic Lying] Blood Pressure [Orthostatic Sitting] Blood Pressure [Orthostatic Standing] Pulse Oximetry 96 96 08/23/18 20:00 08/23/18 22:00 Temperature Pulse Rate Pulse Rate [Orthostatic Lying] 64 Pulse Rate [Orthostatic Sitting] 64 Pulse Rate [Orthostatic Standing] 70 Respiratory Rate Blood Pressure Blood Pressure [Orthostatic Lying] 130/67 Blood Pressure [Orthostatic Sitting] 136/67 Blood Pressure [Orthostatic Standing] 111/71 Pulse Oximetry 96 MDM - Dizziness Lab Data Result diagrams: 08/23/18 14:30 08/23/18 14:30 Lab Results 08/22/18 08/22/18 08/22/18 Range/Units 22:49 22:49 22:49 WBC 11.4 H (4.5-11.0) X10^3/uL RBC 4.66 (4.0-5.2) X10^6/uL Hgb 14.2 (12.0-16.0) g/dL Hct 42.9 (36-46) % MCV 92.1 (80-100) fL MCH 30.4 (26-34) PG MCHC 33.0 (30-36) % RDW 14.4 (11.6-14.8) % Plt Count 426 H (150-400) X10^3/uL Neut % (Auto) 63.4 (50-75) % Lymph % (Auto) 25.6 (25-40) % Scurry % (Auto) 7.8 (3-14) % Eos % (Auto) 2.3 (2-4) % Baso % (Auto) 0.9 (0-2) % Neut # (Auto) 7200 H (2909-5157) /uL Lymph # (Auto) 2900 (6416-4665) /uL Scurry # (Auto) 900 (0-900) /uL Eos # (Auto) 300 (0-450) /uL Baso # (Auto) 100 (0-100) /uL RBC Morphology Normal morphology Sodium 139 (137-145) mmol/L Potassium 4.2 (3.4-5.1) mmol/L Chloride 100 (98-107) mmol/L Carbon Dioxide 27 (22-32) mmol/L BUN 39 H (7-17) mg/dL Creatinine 1.10 H (0.52-1.04) mg/dL Estimated GFR 48.6 L (>60) mL/min BUN/Creatinine Ratio 35.5 H (6-22) Glucose 142 H (80-110) mg/dL Calcium 8.8 (8.4-10.2) mg/dL Phosphorus (2.8-4.1) mg/dL Magnesium (1.6-2.3) mg/dL Total Bilirubin 0.6 (0.2-1.3) mg/dL AST 43 H (14-36) IU/L ALT 24 (9-52) IU/L Alkaline Phosphatase 88 (38-126) U/L Troponin I < 0.012 (0.01-0.034) ng/mL B-Natriuretic Peptide < 100 (<100) Total Protein 7.6 (6.3-8.2) g/dL Albumin 4.1 (3.5-5.0) g/dL Globulin 3.5 (1.7-4.1) g/dL Albumin/Globulin Ratio 1.2 (1.0-2.8) 08/23/18 08/23/18 08/23/18 Range/Units 14:30 14:30 14:30 WBC 9.5 (4.5-11.0) X10^3/uL RBC 4.29 (4.0-5.2) X10^6/uL Hgb 13.2 (12.0-16.0) g/dL Hct 39.7 (36-46) % MCV 92.5 (80-100) fL MCH 30.7 (26-34) PG MCHC 33.2 (30-36) % RDW 14.1 (11.6-14.8) % Plt Count 332 (150-400) X10^3/uL Neut % (Auto) 70.7 (50-75) % Lymph % (Auto) 17.7 L (25-40) % Scurry % (Auto) 8.2 (3-14) % Eos % (Auto) 2.4 (2-4) % Baso % (Auto) 1.0 (0-2) % Neut # (Auto) 6700 (8180-0433) /uL Lymph # (Auto) 1700 (7605-0362) /uL Scurry # (Auto) 800 (0-900) /uL Eos # (Auto) 200 (0-450) /uL Baso # (Auto) 100 (0-100) /uL RBC Morphology Sodium 138 (137-145) mmol/L Potassium 4.2 (3.4-5.1) mmol/L Chloride 104 (98-107) mmol/L Carbon Dioxide 26 (22-32) mmol/L BUN 32 H (7-17) mg/dL Creatinine 0.80 (0.52-1.04) mg/dL Estimated GFR > 60.0 (>60) mL/min BUN/Creatinine Ratio 40.0 H (6-22) Glucose 104 (80-110) mg/dL Calcium 8.4 (8.4-10.2) mg/dL Phosphorus 4.0 (2.8-4.1) mg/dL Magnesium 2.0 (1.6-2.3) mg/dL Total Bilirubin (0.2-1.3) mg/dL AST (14-36) IU/L ALT (9-52) IU/L Alkaline Phosphatase (38-126) U/L Troponin I (0.01-0.034) ng/mL B-Natriuretic Peptide (<100) Total Protein (6.3-8.2) g/dL Albumin 3.3 L (3.5-5.0) g/dL Globulin (1.7-4.1) g/dL Albumin/Globulin Ratio (1.0-2.8) Imaging Data CT scan - head: Radiologist's impression: [address] [address] [address] Scan Report Signed Patient: Carolyn Peñaloza#: [id number] : 5Acct:[id number] Age/Sex: 73 / FDate of Service: 08/22/18 Loc: OU043-2 Accession Number: [id number] Procedure: CT head/brain wo con Ordering Provider: Heath De Luna D.O. PROCEDURE: CT HEAD/BRAIN WO CON INDICATIONS: dizziness, blood thinners TECHNIQUE: Noncontrast 4.5 mm thick angled axial sections acquired from the foramen magnum to the vertex, with coronal and sagittal reformats. For radiation dose reduction, the following was used: automated exposure control, adjustment of mA and/or kV according to patient size. COMPARISON: None. FINDINGS: Image quality: Excellent. CSF spaces: Basal cisterns are patent. No extra-axial fluid collections. The ventricles are symmetric in size and shape. Brain: No intracranial bleeds or masses. There is severe cerebral volume loss for age, with resultant ventricular and sulcal prominence. There are severe periventricular and deep white matter chronic small vessel ischemic changes. There is intracranial internal carotid artery atherosclerosis. Skull and face: Calvarium and visualized facial bones appear intact, without suspicious lesions. Sinuses: Visualized sinuses and mastoids are clear. IMPRESSION: 1. No acute intracranial abnormalities. 2. Cerebral volume loss and chronic microvascular ischemic changes. No significant discrepancy with the renewable energy division manager radiology preliminary report. Dictated by: Kasey Patrick M.D. on 08/23/2018 at 7:43 Approved by: Kasey Patrick M.D. on 08/23/2018 at 7:44 Chest x-ray: Radiologist's impression: Pao Peñaloza 73 F [address] [address] XRay Report Signed Patient: Carolyn Peñaloza#: [id number] : 5Acct:[id number] Age/Sex: 73 / FDate of Service: 08/22/18 Loc: RP836-4 Accession Number: [id number] Procedure: XR chest 2V Ordering Provider: Heath De Luna D.O. PROCEDURE: XR CHEST 2V INDICATIONS: dizziness TECHNIQUE: 2 views of the chest were acquired. COMPARISON: [facility], , XR CHEST 1V, 08/16/2018, 18:07. FINDINGS: Surgical changes and devices: None. Lungs and pleura: Coarse interstitial markings, similar compared to the prior study. Decreased central venous congestion. Residual parenchymal opacity in the retrocardiac region. No pleural effusions or pneumothorax. Mediastinum: Mediastinal contours are normal. Heart size is normal. Bones and chest wall: No suspicious bony abnormalities. Soft tissues appear unremarkable. IMPRESSION: 1. Chronic interstitial thickening, less extensive compared to the prior study, suggestive of chronic edema. 2. Mild persistent retrocardiac opacity but decreased size of small left effusion. Differential diagnosis includes chronic edema, atelectasis and pneumonia. Dictated by: Alysha Rendon M.D. on 08/23/2018 at 9:01 Approved by: Alysha Rendon M.D. on 08/23/2018 at 9:06 [facility] Narrative Medical decision making narrative: Patient with recent admission for new onset acute heart failure with successful diuresis presents with a collapse, near syncope and profound lightheadedness. Her symptoms are positional, she has dry mucous membranes and poor skin turgor. Head CT unremarkable, ordered due to dizziness with use of anticoagulation She does have a drop in blood pressure with orthostatics and becomes more dizzy and lightheaded. She is still not created urine. We are gently hydrating as she is mentating appropriately and we do not want to fluid overload. Patient will require hospitalization for ongoing evaluation and stabilization of her condition Discharge Plan Departure Patient Disposition: Admitted as Observation Clinical Impression: Acute dehydration, Near syncope Discharge Date/Time: 08/23/18 02:11 Interventions: ED Discharge Assessment Last Done: 08/23/18 02:02 Admit Date/Time: 08/23/18 02:09 Admit Provider: Paty Fox
[2018-08-22 23:31] LABS: Basophils Absolute Auto 100 /uL (0-100); Basophils Percent Auto 0.9 % (0-2); Eosinophils Absolute Auto 300 /uL (0-450); Eosinophils Percent Auto 2.3 % (2-4); Hematocrit 42.9 % (36-46); Hemoglobin 14.2 g/dL (12.0-16.0); Lymphocytes Absolute Auto 2900 /uL (1100-4500); Lymphocytes Percent Auto 25.6 % (25-40); Mean Corpuscular Hemoglobin 30.4 PG (26-34); Mean Corpuscular Volume 92.1 fL (80-100); Monocytes Absolute Auto 900 /uL (0-900); Monocytes Percent Auto 7.8 % (3-14); Neutrophils Absolute Auto 7200 /uL (1500-7000); Neutrophils Percent Auto 63.4 % (50-75); Platelet Count 426 X10^3/uL (150-400); Red Blood Cell Count 4.66 X10^6/uL (4.0-5.2); Red Cell Distribution Width 14.4 % (11.6-14.8); White Blood Cell Count 11.4 X10^3/uL (4.5-11.0)
[2018-08-22 23:34] LABS: Alanine Aminotransferase 24 IU/L (9-52); Albumin 4.1 g/dL (3.5-5.0); Albumin Globulin Ratio 1.2 (1.0-2.8); Alkaline Phosphatase 88 U/L (38-126); Aspartate Aminotransferase 43 IU/L (14-36); BUN Creatinine Ratio 35.5 (6-22); Bilirubin Total 0.6 mg/dL (0.2-1.3); Blood Urea Nitrogen 39 mg/dL (7-17); Calcium 8.8 mg/dL (8.4-10.2); Carbon Dioxide 27 mmol/L (22-32); Chloride 100 mmol/L (98-107); Estimated Glomerular Filt Rate 48.6 mL/min (>60); Globulin 3.5 g/dL (1.7-4.1); Glucose 142 mg/dL (80-110); Sodium 139 mmol/L (137-145); Total Protein 7.6 g/dL (6.3-8.2)
[2018-08-22 23:35] LABS: HEMOLYSIS 110 (0-50)
[2018-08-22 23:37] LABS: Potassium 4.2 mmol/L (3.4-5.1)
[2018-08-22 23:45] LABS: Troponin I < 0.012 ng/mL (0.01-0.034)
[2018-08-22 23:47] LABS: B Type Natriuretic Peptide < 100 (<100)
[2018-08-22 23:54] LABS: Add Manual Diff / Slide Review SLIDE REVIEW; RBC Morphology Normal Morphology
[2018-08-23] VITALS (20 sets, daily range): BP systolic 92–147; BP diastolic 40–90; PULSE 58–85; RESP 15–95; TEMP 36.6–37; O2SAT 95–100; BMI 33.3
--- NOTE | 2018-08-23 01:02 | ED_ITS ---
HPI - Dizziness General Chief Complaint: Dizziness Stated Complaint: Dizzy Time Seen by Provider: 08/22/18 22:19 Source: patient and family Mode of arrival: EMS Limitations: no limitations History of Present Illness HPI Narrative: 73-year-old female nonsmoker with history AFib, recent pneumonia, and hospitalization for acute CHF resents by EMS after collapsing after dinner tonight. She was just discharged yesterday with shortness of breath, acute heart failure and resolving pneumonia. She was placed on diuretics and a fluid restriction. She is dizzy, weak and lightheaded. She states she is dizzy upon standing with some improvement upon laying down. She has had a poor appetite and generally feels unwell. She denies any ongoing difficulty breathing and denies any chest pain or shortness of breath. She denies nausea, vomiting or diarrhea. She denies any fever or shaking chills MD complaint: dizziness and lightheadedness Timing: gradual onset Description: lightheadedness and near-syncope History of similar episodes: No History of trauma: No Severity: moderate Relieving factors: rest Exacerbating factors: position Associated symptoms: denies other symptoms Related Data Home Medications Medication Instructions Recorded Confirmed albuterol sulfate 1 puff INHALATION QID PRN 08/16/18 08/23/18 fesoterodine 8 mg PO DAILY 08/16/18 08/23/18 levothyroxine 125 mcg PO DAILY 08/16/18 08/23/18 losartan 50 mg PO DAILY 08/16/18 08/23/18 Previous Rx's Medication Instructions Recorded apixaban [Eliquis] 5 mg PO BID #60 tab 08/21/18 furosemide 40 mg PO DAILY #30 tab 08/21/18 metoprolol tartrate 25 mg PO BID #60 tab 08/21/18 Allergies Allergy/AdvReac Type Severity Reaction Status Date / Time No Known Drug Allergies Allergy Verified 08/22/18 22:26 Review of Systems Constitutional Denies chills, Denies fever(s), Denies lethargy and Denies weakness Eyes Denies change in vision, Denies eye discharge, Denies irritation and Denies loss of vision ENT Ears, Nose, Mouth, and Throat: Denies change in voice, Denies neck pain and Denies sore throat Cardiovascular Denies chest pain, Denies irregular heart rhythm, Reports lightheadedness, Denies palpitations, Denies dyspnea, Denies dyspnea on exertion and Denies orthopnea Respiratory Denies cough, Denies dyspnea, Denies dyspnea on exertion and Denies wheezing Gastrointestinal Gastrointestinal: Denies abdominal pain, Denies change in bowel habits, Denies diarrhea, Denies nausea and Denies vomiting Genitourinary Denies hematuria, Denies flank pain, Denies urinary incontinence and Denies urinary urgency Musculoskeletal Denies neck pain Integumentary/Breasts Denies pruritus, Denies erythema, Denies rash and Denies wounds Neurologic Denies confusion, Denies loss of vision and Denies weakness Psychiatric Denies anxiety, Denies confusion, Denies depression, Denies homicidal ideation and Denies suicidal ideation Endocrine Denies palpitations Hematologic/Lymphatic Denies easy bruising Allergic/Immunologic Denies wheezing [facility] Medical History (Updated 08/23/18 @ 02:22 by JULIANNE Dunlap) Status post chemoradiation (Chronic) Breast cancer (Chronic) Fusion of lumbar spine (Chronic) Hypertension (Chronic) Hypothyroid (Chronic) LBBB (left bundle branch block) (Chronic) Urinary incontinence (Chronic) Surgical History H/O lumpectomy (Chronic) Hx of cholecystectomy (Chronic) Social History marital status: household members: spouse Smoking Status: Former smoker alcohol intake: current substance use type: does not use additional social history: [facility] in [place] Social History marital status: household members: spouse Smoking Status: Former smoker alcohol intake: current substance use type: does not use additional social history: [facility] in [place] Exam Narrative Exam Narrative: GENERAL: 73-year-old female resting comfortably, obviously weak with dry mucous membranes and poor skin turgor HEAD: Atraumatic. Normocephalic. No temporal or scalp tenderness. EYES: Pupils equal round and reactive. Extraocular motions intact. No scleral icterus. No injection or drainage. ENT: Dry mucous membranes. Nose without bleeding, purulent drainage or septal hematoma. Throat without erythema, tonsillar hypertrophy or exudate. Uvula midline. Airway patent. NECK: Trachea midline. No JVD or lymphadenopathy. Supple, nontender, no meningeal signs. CARDIOVASCULAR: Regular rate and rhythm without murmurs, gallops, or rubs. RESPIRATORY: Clear to auscultation. Breath sounds equal bilaterally. No wheezes, rales, or rhonchi. GASTROINTESTINAL: Abdomen soft, non-tender, nondistended. No hepato- splenomegaly, or palpable masses. No guarding. EXTREMITIES: No clubbing, cyanosis, or edema. No joint tenderness, effusion, or edema noted. BACK: Nontender without deformity or crepitance. No flank tenderness. NEURO: AOx3. SKIN: No rash or erythema. Por skin turgor Initial Vital Signs Initial Vital Signs: Vital Signs Temperature 97.6 F 08/22/18 22:20 Pulse Rate 51 L 08/22/18 22:20 Respiratory Rate 11 L 08/22/18 22:20 Blood Pressure 114/55 L 08/22/18 22:20 Pulse Oximetry 96 08/22/18 22:20 Course Orders Ordered: ED Orders 08/24/18 05:00 Basic Metabolic Panel Routine Complete Blood Count AUTO DIFF Routine Albuterol/Ipratropium (Duoneb) 3 ml INH [id number] PRN PRN Reason: Bronchospasm Apixaban (Eliquis) 5 mg PO BID [facility] Last Admin: 08/23/18 19:55 Dose: 5 mg Admin: 08/23/18 09:34 Dose: 5 mg Sodium Chloride (Normal Saline 0.9%) 1,000 mls @ 70 mls/hr IV CONT [facility] Stop: 10/22/18 17:18 Last Admin: 08/23/18 17:02 Dose: 70 mls/hr Levothyroxine Sodium (Synthroid) 125 mcg PO 0700 [facility] Last Admin: 08/23/18 09:34 Dose: 125 mcg Losartan Potassium (Cozaar) 25 mg PO DAILY [facility] Last Admin: 08/23/18 17:03 Dose: 25 mg Metoprolol Tartrate (Lopressor) 12.5 mg PO BID [facility] Last Admin: 08/23/18 19:55 Dose: 12.5 mg Ondansetron HCl (Zofran) 4 mg IV Q8HR PRN PRN Reason: Nausea And Vomiting Discontinued Medications Sodium Chloride (Normal Saline 0.9%) 500 mls @ 1,000 mls/hr IV BOLUS ONE Stop: 08/23/18 00:32 Last Infusion: 08/23/18 01:52 Dose: 0 mls/hr Infusion: 08/23/18 01:13 Dose: 700 mls/hr Admin: 08/23/18 01:06 Dose: 1,000 mls/hr Sodium Chloride (Normal Saline 0.9%) 1,000 mls @ 70 mls/hr IV CONT CYNDI Stop: 08/23/18 17:18 Last Admin: 08/23/18 03:18 Dose: 70 mls/hr Reevaluation(s) Reevaluation #1: patient symptomatic with orthostatics, dizzy and weak. Reevaluation #2: no improvement with gentle hydration. Still no urine. Vital Signs - 8 hr 08/23/18 16:06 08/23/18 17:03 08/23/18 19:35 Temperature 97.9 F 98.3 F Pulse Rate 63 63 64 Pulse Rate [Orthostatic Lying] Pulse Rate [Orthostatic Sitting] Pulse Rate [Orthostatic Standing] Respiratory Rate 18 18 Blood Pressure 124/59 L 124/59 L 116/65 Blood Pressure [Orthostatic Lying] Blood Pressure [Orthostatic Sitting] Blood Pressure [Orthostatic Standing] Pulse Oximetry 96 96 08/23/18 20:00 08/23/18 22:00 Temperature Pulse Rate Pulse Rate [Orthostatic Lying] 64 Pulse Rate [Orthostatic Sitting] 64 Pulse Rate [Orthostatic Standing] 70 Respiratory Rate Blood Pressure Blood Pressure [Orthostatic Lying] 130/67 Blood Pressure [Orthostatic Sitting] 136/67 Blood Pressure [Orthostatic Standing] 111/71 Pulse Oximetry 96 MDM - Dizziness Lab Data Result diagrams: 08/23/18 14:30 08/23/18 14:30 Lab Results 08/22/18 08/22/18 08/22/18 Range/Units 22:49 22:49 22:49 WBC 11.4 H (4.5-11.0) X10^3/uL RBC 4.66 (4.0-5.2) X10^6/uL Hgb 14.2 (12.0-16.0) g/dL Hct 42.9 (36-46) % MCV 92.1 (80-100) fL MCH 30.4 (26-34) PG MCHC 33.0 (30-36) % RDW 14.4 (11.6-14.8) % Plt Count 426 H (150-400) X10^3/uL Neut % (Auto) 63.4 (50-75) % Lymph % (Auto) 25.6 (25-40) % Walsh % (Auto) 7.8 (3-14) % Eos % (Auto) 2.3 (2-4) % Baso % (Auto) 0.9 (0-2) % Neut # (Auto) 7200 H (0959-5658) /uL Lymph # (Auto) 2900 (5665-2594) /uL Walsh # (Auto) 900 (0-900) /uL Eos # (Auto) 300 (0-450) /uL Baso # (Auto) 100 (0-100) /uL RBC Morphology Normal morphology Sodium 139 (137-145) mmol/L Potassium 4.2 (3.4-5.1) mmol/L Chloride 100 (98-107) mmol/L Carbon Dioxide 27 (22-32) mmol/L BUN 39 H (7-17) mg/dL Creatinine 1.10 H (0.52-1.04) mg/dL Estimated GFR 48.6 L (>60) mL/min BUN/Creatinine Ratio 35.5 H (6-22) Glucose 142 H (80-110) mg/dL Calcium 8.8 (8.4-10.2) mg/dL Phosphorus (2.8-4.1) mg/dL Magnesium (1.6-2.3) mg/dL Total Bilirubin 0.6 (0.2-1.3) mg/dL AST 43 H (14-36) IU/L ALT 24 (9-52) IU/L Alkaline Phosphatase 88 (38-126) U/L Troponin I < 0.012 (0.01-0.034) ng/mL B-Natriuretic Peptide < 100 (<100) Total Protein 7.6 (6.3-8.2) g/dL Albumin 4.1 (3.5-5.0) g/dL Globulin 3.5 (1.7-4.1) g/dL Albumin/Globulin Ratio 1.2 (1.0-2.8) 08/23/18 08/23/18 08/23/18 Range/Units 14:30 14:30 14:30 WBC 9.5 (4.5-11.0) X10^3/uL RBC 4.29 (4.0-5.2) X10^6/uL Hgb 13.2 (12.0-16.0) g/dL Hct 39.7 (36-46) % MCV 92.5 (80-100) fL MCH 30.7 (26-34) PG MCHC 33.2 (30-36) % RDW 14.1 (11.6-14.8) % Plt Count 332 (150-400) X10^3/uL Neut % (Auto) 70.7 (50-75) % Lymph % (Auto) 17.7 L (25-40) % Walsh % (Auto) 8.2 (3-14) % Eos % (Auto) 2.4 (2-4) % Baso % (Auto) 1.0 (0-2) % Neut # (Auto) 6700 (5022-2875) /uL Lymph # (Auto) 1700 (3569-3679) /uL Walsh # (Auto) 800 (0-900) /uL Eos # (Auto) 200 (0-450) /uL Baso # (Auto) 100 (0-100) /uL RBC Morphology Sodium 138 (137-145) mmol/L Potassium 4.2 (3.4-5.1) mmol/L Chloride 104 (98-107) mmol/L Carbon Dioxide 26 (22-32) mmol/L BUN 32 H (7-17) mg/dL Creatinine 0.80 (0.52-1.04) mg/dL Estimated GFR > 60.0 (>60) mL/min BUN/Creatinine Ratio 40.0 H (6-22) Glucose 104 (80-110) mg/dL Calcium 8.4 (8.4-10.2) mg/dL Phosphorus 4.0 (2.8-4.1) mg/dL Magnesium 2.0 (1.6-2.3) mg/dL Total Bilirubin (0.2-1.3) mg/dL AST (14-36) IU/L ALT (9-52) IU/L Alkaline Phosphatase (38-126) U/L Troponin I (0.01-0.034) ng/mL B-Natriuretic Peptide (<100) Total Protein (6.3-8.2) g/dL Albumin 3.3 L (3.5-5.0) g/dL Globulin (1.7-4.1) g/dL Albumin/Globulin Ratio (1.0-2.8) Imaging Data CT scan - head: Radiologist's impression: [address] [address] [address] Scan Report Signed Patient: Carolyn Peñaloza#: [id number] : 5Acct:[id number] Age/Sex: 73 / FDate of Service: 08/22/18 Loc: IU896-3 Accession Number: [id number] Procedure: CT head/brain wo con Ordering Provider: Heath De Luna D.O. PROCEDURE: CT HEAD/BRAIN WO CON INDICATIONS: dizziness, blood thinners TECHNIQUE: Noncontrast 4.5 mm thick angled axial sections acquired from the foramen magnum to the vertex, with coronal and sagittal reformats. For radiation dose reduction, the following was used: automated exposure control, adjustment of mA and/or kV according to patient size. COMPARISON: None. FINDINGS: Image quality: Excellent. CSF spaces: Basal cisterns are patent. No extra-axial fluid collections. The ventricles are symmetric in size and shape. Brain: No intracranial bleeds or masses. There is severe cerebral volume loss for age, with resultant ventricular and sulcal prominence. There are severe periventricular and deep white matter chronic small vessel ischemic changes. There is intracranial internal carotid artery atherosclerosis. Skull and face: Calvarium and visualized facial bones appear intact, without suspicious lesions. Sinuses: Visualized sinuses and mastoids are clear. IMPRESSION: 1. No acute intracranial abnormalities. 2. Cerebral volume loss and chronic microvascular ischemic changes. 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 Dictated by: Kasey Patrick M.D. on 08/23/2018 at 7:43 Approved by: Kasey Patrick M.D. on 08/23/2018 at 7:44 Chest x-ray: Radiologist's impression: Pao Peñaloza 73 F [address] [address] XRay Report Signed Patient: Carolyn Peñaloza#: [id number] : 5Acct:[id number] Age/Sex: 73 / FDate of Service: 08/22/18 Loc: YZ994-4 Accession Number: [id number] Procedure: XR chest 2V Ordering Provider: Heath De Luna D.O. PROCEDURE: XR CHEST 2V INDICATIONS: dizziness TECHNIQUE: 2 views of the chest were acquired. COMPARISON: [facility], , XR CHEST 1V, 08/16/2018, 18:07. FINDINGS: Surgical changes and devices: None. Lungs and pleura: Coarse interstitial markings, similar compared to the prior study. Decreased central venous congestion. Residual parenchymal opacity in the retrocardiac region. No pleural effusions or pneumothorax. Mediastinum: Mediastinal contours are normal. Heart size is normal. Bones and chest wall: No suspicious bony abnormalities. Soft tissues appear unremarkable. IMPRESSION: 1. Chronic interstitial thickening, less extensive compared to the prior study, suggestive of chronic edema. 2. Mild persistent retrocardiac opacity but decreased size of small left effusion. Differential diagnosis includes chronic edema, atelectasis and pneumonia. Dictated by: Alysha Rendon M.D. on 08/23/2018 at 9:01 Approved by: Alysha Rendon M.D. on 08/23/2018 at 9:06 [facility] Narrative Medical decision making narrative: Patient with recent admission for new onset acute heart failure with successful diuresis presents with a collapse, near syncope and profound lightheadedness. Her symptoms are positional, she has dry mucous membranes and poor skin turgor. Head CT unremarkable, ordered due to dizziness with use of anticoagulation She does have a drop in blood pressure with orthostatics and becomes more dizzy and lightheaded. She is still not created urine. We are gently hydrating as she is mentating appropriately and we do not want to fluid overload. Patient will require hospitalization for ongoing evaluation and stabilization of her condition Discharge Plan Departure Patient Disposition: Admitted as Observation Clinical Impression: Acute dehydration, Near syncope Discharge Date/Time: 08/23/18 02:11 Interventions: ED Discharge Assessment Last Done: 08/23/18 02:02 Admit Date/Time: 08/23/18 02:09 Admit Provider: Paty Fox
[2018-08-23] MEDS: SODIUM CHLORIDE 0.9% 500 ML 1000 ML IV (01:06)
--- NOTE | 2018-08-23 02:23 | P.HP_ITS ---
History of Present Illness Date Patient Seen: 08/23/18 Time Patient Seen: 02:19 Chief complaint: Dizzy Narrative: The patient is a 72-year-old female with PMH of HTN, LBBB, PAF (AC w/ Eliquis), breast cancer (s/p lumpectomy, h/o chemo and radiation, in remission), hypothyroidism, 20 PYH of tobacco dependence, CHINYERE (on CPAP), and urinary incontinence. Patient presented to the ED for further evaluation after experiencing a near syncopal event. At time of the event patient was in an upright standing position. She just finished having dinner with family. Standing outside of a restaurant waiting for her . At that time was experiencing dizziness, lightheadedness, and nausea. Recalls legs becoming weak and dropping to the ground, specifically notes melting into the sidewalk. Patient was lowered down to the ground and placed into a supine position by people around her. There was no loss of consciousness or injury to the head. Patient denies experiencing headache, change in vision, chest pain, palpitations, shortness of breath, or abdominal pain. EMS found patient's SBP to be in the 80s. Patient was recently hospitalized at the [facility], 08/16 through 08/21, for decompensated heart failure, CAP, bronchospasm, PAF, and HTN. She was treated with azithromycin and received a 3 day prednisone 40 mg burst for suspected reactive airway and/or bronchospasm. She underwent a workup for heart failure. Echo revealed EF of 50-55%, stage II diastolic dysfunction, wall motion hypokinesis, moderate MR, aowj-nd-cannskce AR, bgxwwvej-cv-ealmxt TR and RVSP of 49 mmHg. In lieu of wall motion abnormalities, she underwent a nuclear medicine stress test out of concern for ischemic heart disease. In collaboration with cardiology, it was concluded that patient has apical and septal hypokinesis were related to the bundle branch block. During patient's hospital stay she went into an acute episode of atrial fibrillation. She was found to be a high risk for thromboembolic events per [id number] score of 4. An adjustment in her beta-medhat was made. She was changed from propranolol 80 mg QD to metoprolol 25 mg BID and started on anticoagulation with Eliquis 5 mg BID. Patient spontaneously converted to sinus rhythm. This morning patient has taken metoprolol and losartan. She did not check her blood pressure before hand (does not have a BP cuff). She has been trying to adhere to a 1.5 L fluid restriction. Patient does not take any diuretics. Initial labs in the ED revealed FREDERIC with serum creatinine of 1.1 and signs of dehydration. ED presentation and work-up T 97.6F BP 114/55 HR 51 RR 11 SpO2 96% WBC 11.4 Hgb 14.2 Plt 426 Na 139 K 4.2 Cl 100 Ca 8.8 Alb 4.1 Glu 142 CO2 27 BUN 39 Cr 1.1 GFR 48.6 T. Bili 0.6 AST 43 ALT 24 Alk Phos 88 Trop < 0.012 BNP < 100 CT Head and XR Chest pending, preliminary read noted as unremarkable by ED provider Treated with 500 ml of NS, while in ED Patient History Medical History (Updated 08/23/18 @ 02:22 by JULIANNE Dunlap) Status post chemoradiation (Chronic) Breast cancer (Chronic) Fusion of lumbar spine (Chronic) Hypertension (Chronic) Hypothyroid (Chronic) LBBB (left bundle branch block) (Chronic) Urinary incontinence (Chronic) Surgical History H/O lumpectomy (Chronic) Hx of cholecystectomy (Chronic) Social History marital status: household members: spouse Smoking Status: Former smoker alcohol intake: current substance use type: does not use additional social history: Lives in [place] Family & Social History Social History: household members Spouse. Visiting from [place]. Safety & Behavioral: Feels Safe in Current Yes Environment Tobacco & Substance use: Smoking Status Former smoker, 10 total years (in her 20s), 2 ppd, quit 50+ yrs ago. alcohol intake current alcohol intake frequency holiday/special occasion Substance Use Type Denies prior or current use Meds Home Medications Medication Instructions Recorded Confirmed Type albuterol sulfate 1 puff INHALATION QID PRN 08/16/18 08/16/18 History fesoterodine 8 mg PO DAILY 08/16/18 08/16/18 History levothyroxine 125 mcg PO DAILY 08/16/18 08/16/18 History losartan 50 mg PO DAILY 08/16/18 08/16/18 History apixaban [Eliquis] 5 mg PO BID #60 tab 07/01/19 Rx furosemide 40 mg PO DAILY #30 tab 08/21/18 Rx metoprolol tartrate 25 mg PO BID #60 tab 08/21/18 Rx Allergies Allergy/AdvReac Type Severity Reaction Status Date / Time No Known Drug Allergies Allergy Verified 08/22/18 22:26 Review of Systems Review of Systems All systems reviewed & are unremarkable except as noted in HPI and below Exam Vital Signs (past 8 hours): - 08/22/18 22:20 08/22/18 22:26 08/22/18 23:00 Temperature 97.6 F 97.6 F Pulse Rate 51 L 54 L 60 Respiratory Rate 11 L 16 18 Blood Pressure 114/55 L Blood Pressure [Right Arm] 114/55 L 95/45 L Pulse Oximetry 96 96 97 08/23/18 00:00 08/23/18 01:00 08/23/18 02:02 Temperature Pulse Rate 66 59 L 62 Respiratory Rate 15 20 19 Blood Pressure 100/40 L Blood Pressure [Right Arm] 92/45 L 92/40 L Pulse Oximetry 96 96 98 08/23/18 02:05 Temperature Pulse Rate 64 Respiratory Rate 18 Blood Pressure Blood Pressure [Right Arm] 100/53 L Pulse Oximetry 96 Oxygen Delivery Method Room Air Narrative Exam Narrative: Constitutional: NAD Neurologic: AOx3, no focal neurological deficits Head: NC, AT Eyes: PERRL, EOMI, Ears: external ears normal, no otorrhea Nose: external nose normal, no rhinorrhea or epistaxis Throat: DRY MM, oropharynx w/o exudate Neck: no masses, lymphadenopathy, or JVD Chest / Respiratory: equal chest rise, unlabored respiratory effort, no tachypnea diminished bases b/l Heart / CV: S1S2, + murmur Abdomen / GI: round, NT, ND, + BS, no organomegaly : no suprapubic tenderness, no CVA Peripheral / Vascular: warm to touch, DP and PT pulses palpable, trace b/l edema Musc: full ROM of upper and lower extremities, adequate muscle tone and bulk Skin: no ecchymosis or suspicious lesions / ulcers Objective Labs Result Diagrams: 08/22/18 22:49 08/22/18 22:49 Labs: Laboratory Results - last 24 hr 08/22/18 08/22/18 08/22/18 22:49 22:49 22:49 WBC 11.4 H RBC 4.66 Hgb 14.2 Hct 42.9 MCV 92.1 MCH 30.4 MCHC 33.0 RDW 14.4 Plt Count 426 H Neut % (Auto) 63.4 Lymph % (Auto) 25.6 Edgar % (Auto) 7.8 Eos % (Auto) 2.3 Baso % (Auto) 0.9 Neut # (Auto) 7200 H Lymph # (Auto) 2900 Edgar # (Auto) 900 Eos # (Auto) 300 Baso # (Auto) 100 RBC Morphology Normal morphology Sodium 139 Potassium 4.2 Chloride 100 Carbon Dioxide 27 BUN 39 H Creatinine 1.10 H Estimated GFR 48.6 L BUN/Creatinine Ratio 35.5 H Glucose 142 H Calcium 8.8 Total Bilirubin 0.6 AST 43 H ALT 24 Alkaline Phosphatase 88 Troponin I < 0.012 B-Natriuretic Peptide < 100 Total Protein 7.6 Albumin 4.1 Globulin 3.5 Albumin/Globulin Ratio 1.2 Assessment & Plan Assessment & Plan narrative: Near syncope, acute, present on admission active - A near-syncope event in the setting of orthostatic hypotension and dehydration - Check orthostatic BP QShift - NS at 70 ml/hr x1L. Already received 500 ml in ED. - No need to repeat Echo as she had one in the past week. - Hold anti-hypertensive agents at this time, re-evaluate in am FREDERIC, present on admission, active - sCr 1.1 g/dL on admission (baseline 0.8 g/dL) - Gentle hydration overnight - Renal fx in am, trend - Avoid nephrotoxic agents, will hold losartan at this time - Avoid hypotension, improve renal perfusion. Ortostatic Hypotension, acute, present on admission, active - gentle hydration - check orthostatic BP QShift Essential hypertension, chronic condition, present on admission, active TORPEDO MAN regimen losartan 50 mg q.d.. Patient was recently started on the metoprolol 25 mg BID for PAF. BP noted to be in the 80s, prior to ED arrival. - hold losartan and metoprolol at this time PAF, isolated episode during most recent hostpitalization, stable - SR on telemetry. Will get an EKG. - Started on metoprolol 25 BID for rate control, hold at this time - Resume Eliquis for anticoagulation Hypothyroidism, chronic condition, present on admission, stable - TSH 1.83, resume levothyroxine 125 mcg daily VTE prophylaxis: on Eliquis Full code. David Peñaloza is the DPOA. Home medications reviewed and reconciled accordingly.
--- NOTE | 2018-08-23 02:57 | PC.ADMIT ---
2422 [facility] Admission Note: The patient,Pao Peñaloza,73 y/o, was given written information regarding hospital policies, unit procedures and contact persons. Patient's smoking status: Former smoker. Vital Signs - 8 hr 08/22/18 22:20 08/22/18 22:26 08/22/18 23:00 Temperature 97.6 F 97.6 F Pulse Rate 51 L 54 L 60 Pulse Rate [Orthostatic Lying] Pulse Rate [Orthostatic Sitting] Pulse Rate [Orthostatic Standing] Respiratory Rate 11 L 16 18 Blood Pressure 114/55 L Blood Pressure [Orthostatic Lying] Blood Pressure [Orthostatic Sitting] Blood Pressure [Orthostatic Standing] Blood Pressure [Right Arm] 114/55 L 95/45 L Pulse Oximetry 96 96 97 08/23/18 00:00 08/23/18 01:00 08/23/18 02:02 Temperature Pulse Rate 66 59 L 62 Pulse Rate [Orthostatic Lying] Pulse Rate [Orthostatic Sitting] Pulse Rate [Orthostatic Standing] Respiratory Rate 15 20 19 Blood Pressure 100/40 L Blood Pressure [Orthostatic Lying] Blood Pressure [Orthostatic Sitting] Blood Pressure [Orthostatic Standing] Blood Pressure [Right Arm] 92/45 L 92/40 L Pulse Oximetry 96 96 98 08/23/18 02:05 08/23/18 02:23 08/23/18 02:56 Temperature 98.1 F Pulse Rate 64 64 Pulse Rate [Orthostatic Lying] 60 Pulse Rate [Orthostatic Sitting] 63 Pulse Rate [Orthostatic Standing] 72 Respiratory Rate 18 16 Blood Pressure 110/58 L Blood Pressure [Orthostatic Lying] 137/64 Blood Pressure [Orthostatic Sitting] 116/53 L Blood Pressure [Orthostatic Standing] 97/52 L Blood Pressure [Right Arm] 100/53 L Pulse Oximetry 96 95 Pt arrived via stretcher from ED in [facility]. VSS, afebrile. Denies pain. Able to ambulate from stretcher to bed without difficulty. Denies dizziness. Provider at bedside to eval and write orders. Orthostatic BP completed at bedside, + orthostatics and Provider made aware. Plan of care reviewed with patient, verbalized understanding. Oriented to room and call light. Will monitor.
[2018-08-23] MEDS: SODIUM CHLORIDE 0.9% 1,000 ML 70 ML IV ×2 (03:18→17:02)
[2018-08-23] MEDS: APIXABAN 5 MG TABLET PO ×2 (09:34→19:55)
[2018-08-23] MEDS: LEVOTHYROXINE 125 MCG TABLET PO (09:34)
--- NOTE | 2018-08-23 14:54 | PC.NURSE ---
Pt denies dizziness and SOB; trace edema to bl feet; RA, ls clear and diminished; Tele SR with BBB; tolerating diet; SBA to bathroom; pt understands to use call light, as needed for SBA
[2018-08-23 14:58] LABS: Add Manual Diff / Slide Review NO; Basophils Absolute Auto 100 /uL (0-100); Eosinophils Absolute Auto 200 /uL (0-450); Eosinophils Percent Auto 2.4 % (2-4); Hematocrit 39.7 % (36-46); Hemoglobin 13.2 g/dL (12.0-16.0); Lymphocytes Absolute Auto 1700 /uL (1100-4500); Lymphocytes Percent Auto 17.7 % (25-40); Mean Corpuscular HGB Conc 33.2 % (30-36); Mean Corpuscular Hemoglobin 30.7 PG (26-34); Mean Corpuscular Volume 92.5 fL (80-100); Monocytes Absolute Auto 800 /uL (0-900); Monocytes Percent Auto 8.2 % (3-14); Neutrophils Absolute Auto 6700 /uL (1500-7000); Neutrophils Percent Auto 70.7 % (50-75); Platelet Count 332 X10^3/uL (150-400); Red Blood Cell Count 4.29 X10^6/uL (4.0-5.2); Red Cell Distribution Width 14.1 % (11.6-14.8); White Blood Cell Count 9.5 X10^3/uL (4.5-11.0)
--- NOTE | 2018-08-23 15:33 | CM.DANOTE ---
DCP/Assessment: Reviewed chart. Patient is a 73yr old female admitted to . with dizziness. PCP is Dr. Med Frey in [place]. Primary payor is 1)Medicare 2)[facility]. Met with patient explained CM/SW role. Patient recently discharged from .H. on 08-21-18. At time of d/c there were no identified d/c planning needs. Patient reports that she was out to dinner with family/friends and had syncopal episode. Her daughter suggested that she return to [facility]. Patient reports that she plans to return to her boat with spouse at [place] when medically stable. At this time patient does not anticipate any d/c planning needs. Patient up I in room. P: Home/boat when stable. CHIDI Donnelly Discharge Planning/Care Management Advanced directive, confirm from FAMILY Start: 08/23/18 02:30 Freq: Q24H Status: Active Protocol: Document 08/23/18 02:30 HNB (Rec: 08/23/18 02:34 HNB [id number]) Advance Directive, confirm on record Time 02:34 Person contacted Pao to contact David () Copy received No CM Discharge Assessment Start: 08/23/18 15:24 Freq: Status: Active Protocol: Document 08/23/18 15:25 KJS (Rec: 08/23/18 15:33 KJS [id number]) Discharge Planning Assessment Assigned Quality Assurance Advisor CHIDI Donnelly Advance Directives? Yes Advance Directives on File No: requested from family History Provided By Patient Medical Record Has Patient been admitted in last 30 Yes days? Comment Re-admit Comment Boat staying on boat in [place], [place]. Household Members spouse Type of transporation used prior to Drives own vehicle admit Discharge Plan Home Transportation Arrangement Spouse can likely provide transport at d/c Referrals Initiated None needed Whiteboard Updated in Patient Room with Yes name and ext. # of Quality Assurance Advisor Review Status In Process Next Review Type Continued Stay Review
[2018-08-23 16:02] LABS: Albumin 3.3 g/dL (3.5-5.0); Blood Urea Nitrogen 32 mg/dL (7-17); Calcium 8.4 mg/dL (8.4-10.2); Carbon Dioxide 26 mmol/L (22-32); Chloride 104 mmol/L (98-107); Estimated Glomerular Filt Rate > 60.0 mL/min (>60); Glucose 104 mg/dL (80-110); HEMOLYSIS 20 (0-50); Potassium 4.2 mmol/L (3.4-5.1); Sodium 138 mmol/L (137-145)
[2018-08-23] MEDS: LOSARTAN 25 MG TABLET PO (17:03)
--- NOTE | 2018-08-23 17:39 | PC.NURSE ---
Pt A/O x4, SBA FWW to ambulate hallway x2, denies dizziness, lightheadedness, or SOB. 96%RA, LS clear/diminished. R hand NS @ 70 infusing. BP 124/59 and started back on Lorsartan with dose changed to 25mg PO to start now @ 1630., and Metoprolol to start back @ HS with dose decreased to 12.5mg PO. Orders to recheck orthostatic BP's @ 2200. BT+ denies nausea. Telemetry in place with NSR 1 degree AVB BBB @ 1600. Bed alarm on for safety.
[2018-08-23] MEDS: METOPROLOL IR 25 MG TABLET 12.5 MG PO (19:55)
[2018-08-24] VITALS (9 sets, daily range): BP systolic 114–139; BP diastolic 58–90; PULSE 61–78; RESP 14–16; TEMP 36.3–36.9; O2SAT 93–97
[2018-08-24] MEDS: LEVOTHYROXINE 125 MCG TABLET PO (05:49)
[2018-08-24 06:13] LABS: Basophils Absolute Auto 100 /uL (0-100); Eosinophils Absolute Auto 300 /uL (0-450); Eosinophils Percent Auto 3.8 % (2-4); Hematocrit 39.8 % (36-46); Hemoglobin 13.3 g/dL (12.0-16.0); Lymphocytes Absolute Auto 2100 /uL (1100-4500); Lymphocytes Percent Auto 25.7 % (25-40); Mean Corpuscular HGB Conc 33.5 % (30-36); Mean Corpuscular Hemoglobin 30.9 PG (26-34); Mean Corpuscular Volume 92.2 fL (80-100); Monocytes Absolute Auto 700 /uL (0-900); Monocytes Percent Auto 8.7 % (3-14); Neutrophils Absolute Auto 5000 /uL (1500-7000); Neutrophils Percent Auto 60.8 % (50-75); Platelet Count 320 X10^3/uL (150-400); Red Blood Cell Count 4.32 X10^6/uL (4.0-5.2); White Blood Cell Count 8.2 X10^3/uL (4.5-11.0)
[2018-08-24 06:23] LABS: BUN Creatinine Ratio 31.3 (6-22); Blood Urea Nitrogen 25 mg/dL (7-17); Calcium 8.3 mg/dL (8.4-10.2); Carbon Dioxide 27 mmol/L (22-32); Chloride 107 mmol/L (98-107); Estimated Glomerular Filt Rate > 60.0 mL/min (>60); Glucose 93 mg/dL (80-110); HEMOLYSIS < 15 (0-50); Sodium 140 mmol/L (137-145)
[2018-08-24 06:43] LABS: Add Manual Diff / Slide Review SLIDE REVIEW
[2018-08-24 06:46] LABS: RBC Morphology Normal Morphology
[2018-08-24] MEDS: SODIUM CHLORIDE 0.9% 1,000 ML 70 ML IV (09:02)
[2018-08-24] MEDS: METOPROLOL IR 25 MG TABLET 12.5 MG PO (09:05)
[2018-08-24] MEDS: APIXABAN 5 MG TABLET PO (09:05)
[2018-08-24] MEDS: LOSARTAN 25 MG TABLET PO (09:05)
--- NOTE | 2018-08-24 11:12 | PC.NURSE ---
PT denies dizziness, SOB and chest pain; Orthostatic BP: lay 132/72, HR 65; Sit 138/90, HR 66; Stand 134/80, HR 78; Pt and pt's present for education regarding CHF, including daily weights, symptoms, pathophysiology; CHF chart provided to patient; Tele SR BBB; trace edema to bilateral ankles, ls clear, O2 RA=97%
--- NOTE | 2018-08-24 12:35 | PM.DS.1 ---
History of Present Illness Date Patient Seen: 08/24/18 Time Patient Seen: 12:35 Chief complaint: Dizzy Narrative: 72-year-old female with PMH of HTN, LBBB, PAF (AC w/ Eliquis), breast cancer (s/p lumpectomy, h/o chemo and radiation, in remission), hypothyroidism, 20 PYH of tobacco dependence, CHINYERE (on CPAP), and urinary incontinence. Patient presented to the ED for further evaluation after experiencing a near syncopal event. At time of the event patient was in an upright standing position. She just finished having dinner with family. Standing outside of a restaurant waiting for her . At that time was experiencing dizziness, lightheadedness, and nausea. Recalls legs becoming weak and dropping to the ground, specifically notes melting into the sidewalk. Patient was lowered down to the ground and placed into a supine position by people around her. There was no loss of consciousness or injury to the head. Patient denies experiencing headache, change in vision, chest pain, palpitations, shortness of breath, or abdominal pain. EMS found patient's SBP to be in the 80s. Patient was recently hospitalized at the [facility], 08/16 through 08/21, for decompensated heart failure, CAP, bronchospasm, PAF, and HTN. She was treated with azithromycin and received a 3 day prednisone 40 mg burst for suspected reactive airway and/or bronchospasm. She underwent a workup for heart failure. Echo revealed EF of 50-55%, stage II diastolic dysfunction, wall motion hypokinesis, moderate MR, qjbu-az-dbgdazms AR, yujleyek-bt-kuwyue TR and RVSP of 49 mmHg. In lieu of wall motion abnormalities, she underwent a nuclear medicine stress test out of concern for ischemic heart disease. In collaboration with cardiology, it was concluded that patient has apical and septal hypokinesis were related to the bundle branch block. During patient's hospital stay she went into an acute episode of atrial fibrillation. She was found to be a high risk for thromboembolic events per [id number] score of 4. An adjustment in her beta-medhat was made. She was changed from propranolol 80 mg QD to metoprolol 25 mg BID and started on anticoagulation with Eliquis 5 mg BID. Patient spontaneously converted to sinus rhythm. The morning of admission patient has taken metoprolol and losartan. She did not check her blood pressure before hand (does not have a BP cuff). She has been trying to adhere to a 1.5 L fluid restriction. Patient does not take any diuretics. Initial labs in the ED revealed FREDERIC with serum creatinine of 1.1 and signs of dehydration. Discharge Providers Date of admission: 08/23/18 02:09 Discharge Date: 08/24/18 Discharge provider: Arlyn Robison MD Summary Discharge Diagnosis: Near syncopal episode, likely due to orthostatic hypotension, resolved FREDERIC, resolved Orthostatic hypotension, resolved Essential hypertension, chronic, active, stable Paroxysmal atrial fibrillation, stable Hypothyroidism, chronic, stable Diastolic congestive heart failure, recent diagnosis, present on admission Breast cancer status post lumpectomy, radiation Left bundle branch block, chronic CHINYERE on CPAP Hospital Course: ED presentation and work-up: T 97.6F, BP 114/55 however positive orthostats, HR 51, RR 11, SpO2 96% WBC 11.4 Hgb 14.2 Plt 426 Na 139 K 4.2 Cl 100 Ca 8.8 Alb 4.1 Glu 142 CO2 27 BUN 39 Cr 1.1 GFR 48.6 T. Bili 0.6 AST 43 ALT 24 Alk Phos 88 Trop < 0.012 BNP < 100 CT Head was performed which revealed no acute intracranial abnormalities, with cerebral volume loss and chronic microvascular ischemic changes. XR Chest revealed chronic interstitial thickening, less extensive compared to the prior study, suggestive of chronic edema, as well as mild persistent retrocardiac opacity but decreased in size consistent with chronic edema, atelectasis and pneumonia. Patient was given 500 cc bolus and admitted for further management of orthostatic hypotension. Once on the general medical floor, patient was placed on telemetry, with no acute rhythm changes noted. She was started on 0.9 NS at 70 cc/hour. Her antihypertensives including losartan and metoprolol were held the 1st day. Patient continued to get orthostatics checks every 12 hours shift, which were positive although decreasing. On 08/23/2018 patient was restarted on half the dose of metoprolol and losartan in the evening. IV fluids were continued. The morning of 08/24/2018, patient's orthostatics were negative and blood pressure/heart rate stayed stable. No near syncopal episodes were observed. IV fluids were stopped. She will be discharged home on new dose of metoprolol 12.5 mg p.o. b.i.d., as well as losartan 25 mg p.o. daily. She is to follow up with her primary care provider regarding optimization of medications. She will not be going home on Lasix, as patient states she has not been taking any and was slightly dehydrated on presentation. Patient's AKA resolved with fluid administration. She is stable for discharge. Treated with 500 ml of NS, while in ED Status at Discharge Cognitive/behavioral status at discharge: oriented Functional status at discharge: independent ambulation Overall status at discharge: patient is back to baseline Time Spent with Patient Greater than 30 minutes Exam Vital Signs (past 8 hours): - 08/24/18 07:40 08/24/18 09:00 08/24/18 09:05 Temperature 97.4 F L Pulse Rate 66 65 Pulse Rate [Orthostatic Lying] 65 Pulse Rate [Orthostatic Sitting] 66 Pulse Rate [Orthostatic Standing] 78 Respiratory Rate 16 Blood Pressure 133/72 133/72 Blood Pressure [Orthostatic Lying] 133/72 Blood Pressure [Orthostatic Sitting] 138/90 Blood Pressure [Orthostatic Standing] 134/80 Pulse Oximetry 93 08/24/18 09:49 08/24/18 11:10 08/24/18 11:18 Temperature 98.4 F Pulse Rate 70 66 Pulse Rate [Orthostatic Lying] Pulse Rate [Orthostatic Sitting] Pulse Rate [Orthostatic Standing] Respiratory Rate 14 16 Blood Pressure 139/70 Blood Pressure [Orthostatic Lying] Blood Pressure [Orthostatic Sitting] Blood Pressure [Orthostatic Standing] Pulse Oximetry 94 97 96 Fraction of Inspired Oxygen 21 Oxygen Delivery Method Room Air Oxygen Flow Rate 0 Narrative Exam Narrative: Constitutional: NAD Neurologic: AOx3, no focal neurological deficits Head: NC, AT Eyes: PERRL, EOMI, Ears: external ears normal, no otorrhea Nose: external nose normal, no rhinorrhea or epistaxis Throat: DRY MM, oropharynx w/o exudate Neck: no masses, lymphadenopathy, or JVD Chest / Respiratory: equal chest rise, unlabored respiratory effort, no tachypia. diminished bases b/l Heart / CV: S1S2, + murmur Abdomen / GI: round, NT, ND, + BS, no organomegaly : no suprapubic tenderness, no CVA Peripheral / Vascular: warm to touch, DP and PT pulses palpable, trace b/l edema Musc: full ROM of upper and lower extremities, adequate muscle tone and bulk Skin: no ecchymosis or suspicious lesions / ulcers Objective Labs Result Diagrams: 08/24/18 05:25 08/24/18 05:25 Labs: Laboratory Results - last 24 hr 08/23/18 08/23/18 08/23/18 14:30 14:30 14:30 WBC 9.5 RBC 4.29 Hgb 13.2 Hct 39.7 MCV 92.5 MCH 30.7 MCHC 33.2 RDW 14.1 Plt Count 332 Neut % (Auto) 70.7 Lymph % (Auto) 17.7 L [place] % (Auto) 8.2 Eos % (Auto) 2.4 Baso % (Auto) 1.0 Neut # (Auto) 6700 Lymph # (Auto) 1700 [place] # (Auto) 800 Eos # (Auto) 200 Baso # (Auto) 100 RBC Morphology Sodium 138 Potassium 4.2 Chloride 104 Carbon Dioxide 26 BUN 32 H Creatinine 0.80 Estimated GFR > 60.0 BUN/Creatinine Ratio 40.0 H Glucose 104 Calcium 8.4 Phosphorus 4.0 Magnesium 2.0 Albumin 3.3 L 08/24/18 08/24/18 05:25 05:25 WBC 8.2 RBC 4.32 Hgb 13.3 Hct 39.8 MCV 92.2 MCH 30.9 MCHC 33.5 RDW 14.0 Plt Count 320 Neut % (Auto) 60.8 Lymph % (Auto) 25.7 [place] % (Auto) 8.7 Eos % (Auto) 3.8 Baso % (Auto) 1.0 Neut # (Auto) 5000 Lymph # (Auto) 2100 [place] # (Auto) 700 Eos # (Auto) 300 Baso # (Auto) 100 RBC Morphology Normal morphology Sodium 140 Potassium 4.0 Chloride 107 Carbon Dioxide 27 BUN 25 H Creatinine 0.80 Estimated GFR > 60.0 BUN/Creatinine Ratio 31.3 H Glucose 93 Calcium 8.3 L Phosphorus Magnesium Albumin Discharge Plan Discharge Plan Patient Disposition: Home Discharge comment: Please follow-up with your primary care provider regarding your medication for orthostatic hypotension Discharge Med Rec/Prescriptions Prescriptions: New metoprolol tartrate 25 mg Tablet 12.5 mg PO BID Qty: 60 RF: 0 losartan 25 mg Tablet 25 mg PO DAILY Qty: 30 RF: 0 Continued levothyroxine 125 mcg tablet 125 mcg PO DAILY RF: 0 albuterol sulfate 90 mcg/actuation HFA aerosol inhaler 1 puff inhalation QID PRN (Reason: Wheezing) RF: 0 fesoterodine 8 mg tablet extended release 24 hr 8 mg PO DAILY RF: 0 Eliquis 5 mg Tablet 5 mg PO BID Qty: 60 RF: 0 Discontinued losartan 50 mg tablet 50 mg PO DAILY RF: 0 metoprolol tartrate 25 mg Tablet 25 mg PO BID Qty: 60 RF: 0 furosemide 40 mg Tablet 40 mg PO DAILY Qty: 30 RF: 0 Provider Discharge Instructions Diet: Regular, Low-fat, Low-sodium and Low-cholesterol Discharge Data Attending Provider: Paty Fox Admit Date/Time: 08/23/18 02:09 Quality VTE Deep Vein Thrombosis/Pulmonary Embolism Present on Admission: No
--- NOTE | 2018-08-24 13:28 | CM.DPC ---
DCP Discharge home Per MD, pt stabilized and ready for d/c home today with no identified barriers to discharge. Pt continued to be orthostatic last night but has stabilized. Pt's spouse bedside and agreeable with transport back to their boat at the [place] today. Pt was a readmit after similar medical concerns. Plan: Patient agreeable with d/c back to their boat today and no SW needs at this time. CHIDI Pimentel
--- NOTE | 2018-09-01 09:11 | PC.NURSE ---
Late entry: Sodium chloride 0.9% ordered 08/23 0300 stopped 08/23 1740 Sodium chloride 0.9% ordered 08/23 1644 stopped 08/24 1110
== END 2018-08-24 15:00 | disposition home or self-care (01) ==
LOC: ED 08-23 01:27 → AC 08-23 02:09
PROVIDERS: Internal Medicine; Admitting Provider Nurse Practitioner Gerontology; Emergency Provider Emergency Medicine; Visit Provider Nurse Practitioner Gerontology
DX: R42 Dizziness and giddiness (principal); I10 Essential (primary) hypertension; I48.0 Paroxysmal atrial fibrillation; E03.9 Hypothyroidism, unspecified; I50.30 Unspecified diastolic (congestive) heart failure; I44.7 Left bundle-branch block, unspecified; G47.33 Obstructive sleep apnea (adult) (pediatric); I95.1 Orthostatic hypotension
CPT/HCPCS: 36415; 36591; 70450; 71046; 80048; 80053; 80069; 83735; 83880; 84484; 85025; 94760; 94762; 96360; 96361; 99283; 99284; G0378

== ENCOUNTER 2018-08-25 18:27 | Emergency (ER) | payer MEDICARE, OTHER, SELFPAY ==
[2018-08-23 02:19] VITALS: BMI 33.3
[2018-08-25 18:31] VITALS: BP 125/69; PULSE 59; RESP 16; TEMP 36.7; O2SAT 96
--- NOTE | 2018-08-25 20:22 | PC.NURSE ---
Pt recently diagnosed with CHF last weeks. C/O rash and burning sensation to lower extremities bilaterally. NAD. V/S stable Denies any CP or SOB. Spouse at bedside. Will continue to monitor.
--- NOTE | 2018-08-26 02:39 | ED_ITS ---
HPI - Skin/Abscess/Foreign Bdy General Chief complaint: Skin/Abscess/Foreign Body Stated complaint: LEGS ARE ON FIRE ITCHING Time Seen by Provider: 08/25/18 18:44 Source: patient and family Mode of arrival: ambulatory Limitations: no limitations History of Present Illness HPI narrative: 73-year-old female nonsmoker presents with her in the chief complaint of a brief episode in which both of her legs felt as if they are on fire earlier today. They both state that the skin appeared red was itchy and burning and lasted perhaps a half an hour and resolved prior to her arrival. She recently was admitted twice, 1st for acute CHF and then for dehydration. She did refill a prescription today for metoprolol which she has had many times as well as furosemide which she has had multiple times. She denies no new soaps, lotions, clothing, socks or other. She denies any other typical allergic type reaction complaint such is swollen tongue, lips or throat, no difficulty breathing and no widespread urticarial rash. She has had no GI complaints such as nausea, vomiting or diarrhea. MD complaint: rash Onset (ago): hour(s) Tetanus up to date: yes Location: LLE and RLE Severity: moderate Quality: burning Pain Consistency: now resolved Relieving factors: none Exacerbating factors: none Treatments prior to arrival: none Related Data Home Medications Medication Instructions Recorded Confirmed albuterol sulfate 1 puff INHALATION QID PRN 08/16/18 08/23/18 fesoterodine 8 mg PO DAILY 08/16/18 08/23/18 levothyroxine 125 mcg PO DAILY 08/16/18 08/23/18 Previous Rx's Medication Instructions Recorded Eliquis 5 mg PO BID #60 tab 08/21/18 losartan 25 mg PO DAILY #30 tab 08/24/18 metoprolol tartrate 12.5 mg PO BID #60 tab 08/24/18 Allergies Allergy/AdvReac Type Severity Reaction Status Date / Time No Known Drug Allergies Allergy Verified 08/22/18 22:26 Review of Systems Constitutional Denies chills, Denies fever(s), Denies lethargy and Denies weakness Eyes Denies change in vision, Denies eye discharge, Denies irritation and Denies loss of vision ENT Ears, Nose, Mouth, and Throat: Denies change in voice, Denies neck pain and Denies sore throat Cardiovascular Denies chest pain, Denies irregular heart rhythm, Denies lightheadedness, Denies palpitations, Denies dyspnea, Denies dyspnea on exertion and Denies orthopnea Respiratory Denies cough, Denies dyspnea, Denies dyspnea on exertion and Denies wheezing Gastrointestinal Gastrointestinal: Denies abdominal pain, Denies change in bowel habits, Denies diarrhea, Denies nausea and Denies vomiting Genitourinary Denies hematuria, Denies flank pain, Denies urinary incontinence and Denies urinary urgency Musculoskeletal Denies neck pain Integumentary/Breasts Reports system reviewed and no additional complaints, except as docu, Reports pruritus, Denies erythema, Denies rash and Denies wounds Neurologic Denies confusion, Denies loss of vision and Denies weakness Psychiatric Denies anxiety, Denies confusion, Denies depression, Denies homicidal ideation and Denies suicidal ideation Endocrine Denies palpitations Hematologic/Lymphatic Denies easy bruising Allergic/Immunologic Reports system reviewed and no additional complaints, except as docu and Denies wheezing PFSH Medical History Breast cancer (Chronic) Fusion of lumbar spine (Chronic) Hypertension (Chronic) Hypothyroid (Chronic) LBBB (left bundle branch block) (Chronic) Status post chemoradiation (Chronic) Urinary incontinence (Chronic) Surgical History H/O lumpectomy (Chronic) Hx of cholecystectomy (Chronic) Family History (Updated 08/23/18 @ 03:17 by JULIANNE Dunlap) Mother No known health problems Father No known health problems Social History marital status: household members: spouse Smoking Status: Former smoker alcohol intake: current substance use type: does not use additional social history: Lives in [place] Family History Mother No known health problems Father No known health problems Social History marital status: household members: spouse Smoking Status: Former smoker alcohol intake: current substance use type: does not use additional social history: Lives in [place] Exam Narrative Exam Narrative: GEN: AOx3 and in no distress, at her apparent baseline EYES: Pupils are equal, round, and reactive to light and accommodation. Extrao ccular muscles are intact bilaterally. There is no subconjunctival hemorrhage or exudate. CHEST: Lungs are clear to auscultation bilaterally and free of wheezes, rales, or rhonchi. Heart rate is regular rhythm, there are no murmurs, clicks, rubs, or gallops. There is no chest wall tenderness. ABD: Abdomen is soft and nontender. There is no guarding or rebound. Bowel sounds are normal in all 4 quadrants. There is no mass or organomegaly. EXT: Full painless ROM of all extremities with no loss of sensation or strength. SKIN: Warm, pink, and dry. No erythema or rash Initial Vital Signs Initial Vital Signs: Vital Signs Temperature 98.1 F 08/25/18 18:31 Pulse Rate 59 L 08/25/18 18:31 Respiratory Rate 16 08/25/18 18:31 Blood Pressure 125/69 08/25/18 18:31 Pulse Oximetry 96 08/25/18 18:31 Course Vital Signs - 8 hr 08/25/18 18:31 Temperature 98.1 F Pulse Rate 59 L Respiratory Rate 16 Blood Pressure 125/69 Pulse Oximetry 96 Discharge Plan Departure Patient Disposition: Home Clinical Impression: Feared complaint without diagnosis, Rash and nonspecific skin eruption Discharge Date/Time: 08/25/18 21:19 Interventions: ED Discharge Assessment Last Done: 08/25/18 21:19 Activity Restrictions/Additional Instructions: *You have been diagnosed with [acute bilateral lower extremity rash and pain, resolved] *What to do: * continue to take medications as directed *Follow up with your primary care provider in 2-3 days, call for an appointment. Let them know you were seen in the Emergency Department and that we ask that you be seen in follow up *Return to ER if you should have any new, worsening or concerning symptoms Prescriptions: No Action levothyroxine 125 mcg tablet 125 mcg PO DAILY RF: 0 albuterol sulfate 90 mcg/actuation HFA aerosol inhaler 1 puff inhalation QID PRN (Reason: Wheezing) RF: 0 fesoterodine 8 mg tablet extended release 24 hr 8 mg PO DAILY RF: 0 Eliquis 5 mg Tablet 5 mg PO BID Qty: 60 RF: 0 losartan 25 mg Tablet 25 mg PO DAILY Qty: 30 RF: 0 metoprolol tartrate 25 mg Tablet 12.5 mg PO BID Qty: 60 RF: 0
== END 2018-08-25 21:19 | disposition home or self-care (01) ==
PROVIDERS: Emergency Provider Emergency Medicine
DX: R21 Rash and other nonspecific skin eruption (principal); Z71.1 Person with feared health complaint in whom no diagnosis is made
CPT/HCPCS: 99282; 99283

== ENCOUNTER → 2020-10-09 15:09 | Outpatient (CLI) | payer MEDICARE, OTHER, SELFPAY ==
[2018-08-23 02:19] VITALS: BMI 33.3
== END ==
PROVIDERS: Referring Provider Nurse Practitioner; Visit Provider Nurse Practitioner
DX: R30.0 Dysuria (principal)
CPT/HCPCS: 87077; 87086; 87186

== ENCOUNTER 2020-10-10 09:49 | Observation (INO) | payer MEDICARE, OTHER, SELFPAY ==
[2018-08-23 02:19] VITALS: BMI 33.3
[2020-10-10] VITALS (23 sets, daily range): BP systolic 128–147; BP diastolic 61–71; PULSE 75–95; RESP 18–32; TEMP 36.7–37.7; O2SAT 91–99; BMI 37.3
--- NOTE | 2020-10-10 10:00 | DI.RAD.S_ITS ---
PROCEDURE: XR CHEST 1V INDICATIONS: suspected sepsis TECHNIQUE: One view of the chest was acquired. COMPARISON: [facility], CR, XR CHEST 2V, 08/22/2018, 23:23. [facility], CR, XR CHEST 1V, 08/16/2018, 18:07. FINDINGS: Surgical changes and devices: None. Lungs and pleura: Lungs are clear. No pleural effusions or pneumothorax. Mediastinum: Mediastinal contours appear normal. Heart size is normal. Bones and chest wall: No suspicious bony lesions. Overlying soft tissues appear unremarkable. IMPRESSION: No acute cardiopulmonary disease. Dictated by: Kasey Patrick M.D. on 10/10/2020 at 11:19 Approved by: Kasey Patrick M.D. on 10/10/2020 at 11:20
--- NOTE | 2020-10-10 10:12 | ED_ITS ---
HPI - Female Genitourinary General Chief complaint: Urogenital-Female Stated complaint: UTI - General Weakness Time Seen by Provider: 10/10/20 10:12 Source: EMS Mode of arrival: EMS Limitations: altered mental status History of Present Illness HPI Narrative: This is a 75-year-old female who comes emergency department with complaint of confusion and recent urinary frequency and dysuria. Patient was seen yesterday and started on nitrofurantoin. She has had 1 tablet. Patient denies any headache, no neck pain, no chest pain or shortness of breath. No abdominal, back flank pain. No vomiting. No diarrhea or constipation. No black or bloody stools. She denies any numbness, tingling weakness of her extremities. She has been afebrile. Patient has difficulty telling me her past medical history but appears she has a history of CHF with medication including losartan, metoprolol, levothyroxine, Eliquis daily and albuterol. Related Data Home Medications Medication Instructions Recorded Confirmed fesoterodine 8 mg tablet,extended 8 mg PO DAILY 10/10/20 10/10/20 release 24 hr (Toviaz) levothyroxine 137 mcg tablet 137 mcg PO QAM 10/10/20 10/10/20 losartan 50 mg tablet 50 mg PO DAILY 10/10/20 10/10/20 metoprolol tartrate 25 mg tablet 25 mg PO DAILY 10/10/20 10/10/20 potassium chloride 10 mEq 10 meq PO DAILY 10/10/20 10/10/20 capsule,extended release Previous Rx's Medication Instructions Recorded apixaban 5 mg tablet (Eliquis) 5 mg PO BID #60 tab 08/21/18 nitrofurantoin 100 mg PO Q12H 5 Days #10 cap 10/09/20 monohydrate/macrocrystals 100 mg capsule (Macrobid) Allergies Allergy/AdvReac Type Severity Reaction Status Date / Time No Known Drug Allergies Allergy Verified 10/10/20 12:30 Review of Systems Review of Systems ROS Unobtainable: All systems reviewed & are unremarkable except as noted in HPI and below Patient History Medical History Breast cancer Fusion of lumbar spine Hypertension Hypothyroid LBBB (left bundle branch block) Status post chemoradiation Urinary incontinence Surgical History H/O lumpectomy Hx of cholecystectomy Family History Mother No known health problems Father No known health problems alcohol intake frequency: holidays/special occasions only Substance Use Type: does not use Exam Narrative Exam Narrative: GEN: Obese well appearing female, alert and oriented x 2, patient does have some confusion on terms of long-term history. She is aware of why she is here, her location as well as the year. Patient appears to be in mild distress. HEENT: Atraumatic, pupils are equal round reactive to light, extraocular movements are intact, nares are clear, TMs are clear with no fluid, there is no conjunctival pallor. Throat is clear without any exudates, erythema, tonsillar enlargement or uvular deviation, no facial droop. No meningeal signs. HEART: Regular rate and rhythm without murmur, clicks, rubs. LUNGS:Lungs clear to auscultation, no wheezes, rales, crackles, chest moves symmetrically ABD:bowel sounds normal, soft, non-tender, no guarding, rebound, rigidity, no masses noted, no hepatosplenomegaly :No CVA tenderness MSCL: Non-tender, no muscle atrophy, muscles strength 5/5 upper and lower extremities, full range of motion NEURO:CN 2-12 intact, sensation normal SKIN: No rash, erythema or other skin changes. Initial Vital Signs Initial Vital Signs: Vital Signs Temperature 98.1 F 10/10/20 09:50 Pulse Rate 85 10/10/20 09:50 Respiratory Rate 18 10/10/20 09:50 Blood Pressure 129/61 10/10/20 09:50 Pulse Oximetry 99 10/10/20 09:50 Course Orders Ordered: ED Orders 10/10/20 09:55 COVID19 - ADMIT ([facility] swab/PCR) Stat 10/10/20 10:00 XR chest 1V Stat EKG-12 Lead Stat 10/10/20 10:15 Complete Blood Count AUTO DIFF Stat Comprehensive Metabolic Panel Stat Ethanol (ETOH) Stat Lactate (Lactic Acid) Stat Lipase Stat Procalcitonin Stat 10/10/20 10:37 CT abdomen pelvis w con Stat 10/10/20 10:45 Blood Culture Stat 10/10/20 11:20 Urinalysis and Microscopic Stat 10/10/20 13:48 Hepatitis Acute Panel Stat Acetaminophen (Acetaminophen 325 Mg Tablet) 650 mg PO Q6HR PRN PRN Reason: Fever/Mild Pain (1-3) Sodium Chloride (Normal Saline 0.9%) 1,000 mls @ 100 mls/hr IV CONT [facility] Last Admin: 10/10/20 14:25 Dose: 100 mls/hr Documented by: LEV Ceftriaxone Sodium 1,000 mg/ (Sodium Chloride) 100 mls @ 200 mls/hr IV Q24H [facility] Last Admin: 10/10/20 14:25 Dose: 200 mls/hr Documented by: LEV Ondansetron HCl (Ondansetron 4 Mg/2 Ml Inj) 4 mg IV Q8HR PRN PRN Reason: Nausea And Vomiting Discontinued Medications Piperacillin Sod/Tazobactam (Sod 4.5 gm/ Sodium Chloride) 100 mls @ 200 mls/hr IV NOW ONE Stop: 10/10/20 10:21 Last Infusion: 10/10/20 11:59 Dose: 0 mls/hr Documented by: Admin: 10/10/20 11:13 Dose: 200 mls/hr Documented by: ANDRIY Sodium Chloride (Normal Saline 0.9%) 1,000 mls @ 1,000 mls/hr IV BOLUS ONE Stop: 10/10/20 11:20 Last Infusion: 10/10/20 12:40 Dose: 0 mls/hr Documented by: Admin: 10/10/20 10:32 Dose: 1,000 mls/hr Documented by: ANDRIY Sodium Chloride (Normal Saline 0.9%) 3,165.18 mls @ 1,055.06 mls/hr 30 ml/kg infuse over 3 hr (3165.18 ml) IV NOW ONE Stop: 10/10/20 15:44 Last Infusion: 10/10/20 13:32 Dose: 0 mls/hr Documented by: Admin: 10/10/20 13:07 Dose: 1,055.06 mls/hr Documented by: ANDRIY Consultations Consultation #1: Dr. Navarro, hospitalist at [facility] accepts. Patient's urine yesterday did show leukocyte esterase. Here today appears more negative patient had 1 dose of oral antibiotic. Abdomen pelvis which is negative except for postsurgical changes. No dilated common bile duct. Patient is nontender on exam and her right upper quadrant. She does have an elevation in her lipase and LFTs. She was covered for Zosyn we did discuss possibility of cholangitis but her prelim urine culture is positive with Gram-negative bacilli although less than 10,000 CFU/mL. Vital Signs Vital signs: Vital Signs - 8 hr 10/10/20 11:02 10/10/20 11:03 10/10/20 11:15 Pulse Rate 95 H 88 79 Respiratory Rate 19 22 30 H Blood Pressure 147/66 H Pulse Oximetry 95 93 96 10/10/20 11:30 10/10/20 11:45 10/10/20 12:00 Pulse Rate 79 76 75 Respiratory Rate 28 H 24 23 Blood Pressure 137/65 140/64 Pulse Oximetry 96 94 94 10/10/20 12:15 10/10/20 12:30 Pulse Rate 75 75 Respiratory Rate 24 23 Blood Pressure 128/61 Pulse Oximetry 94 94 MDM - Female Genitourinary Lab Data Result diagrams: 10/10/20 10:15 10/10/20 10:15 Labs: Lab Results 10/10/20 10/10/20 10/10/20 Range/Units 09:55 10:15 10:15 WBC 15.5 H (4.5-11.0) X10^3/uL RBC 4.53 (4.0-5.2) X10^6/uL Hgb 14.6 (12.0-16.0) g/dL Hct 43.0 (36-46) % MCV 94.8 (80-100) fL MCH 32.2 (26-34) PG MCHC 34.0 (30-36) % RDW 13.5 (11.6-14.8) % Plt Count 156 (150-400) X10^3/uL Neut % (Auto) 93.3 H (50-75) % Lymph % (Auto) 2.0 L (25-40) % [place] % (Auto) 4.2 (3-14) % Eos % (Auto) 0.4 L (2-4) % Baso % (Auto) 0.1 (0-2) % Neut # (Auto) 33221 H (2905-6220) /uL Lymph # (Auto) 300 L (2435-1873) /uL [place] # (Auto) 700 (0-900) /uL Eos # (Auto) 100 (0-450) /uL Baso # (Auto) 0 (0-100) /uL Sodium 137 (137-145) mmol/L Potassium 4.2 (3.4-5.1) mmol/L Chloride 106 (98-107) mmol/L Carbon Dioxide 23 (22-32) mmol/L BUN 27 H (7-17) mg/dL Creatinine 0.88 (0.52-1.04) mg/dL Estimated GFR > 60.0 (>60) mL/min BUN/Creatinine Ratio 30.7 H (6-22) Glucose 139 H (80-110) mg/dL Lactate (0.7-2.1) mmol/L Calcium 9.1 (8.4-10.2) mg/dL Total Bilirubin 1.4 H (0.2-1.3) mg/dL AST 67 H (14-36) IU/L ALT 40 H (<35) IU/L Alkaline Phosphatase 74 (38-126) U/L Total Protein 7.3 (6.3-8.2) g/dL Albumin 4.3 (3.5-5.0) g/dL Globulin 3.0 (1.7-4.1) g/dL Albumin/Globulin Ratio 1.4 (1.0-2.8) Lipase 1029 H (23-300) U/L Procalcitonin 2.50 H (<0.5) ng/mL TSH (0.47-4.68) uIU/mL Urine Color Urine Appearance Urine pH (4.5-8.0) Ur Specific [place] (1.000-1.035) Urine Protein (Negative) Urine Glucose (UA) (Negative) g/dL Urine Ketones (NEGATIVE) Urine Occult Blood (Negative) Urine Nitrate (Negative) Urine Bilirubin (NEGATIVE) Urine Urobilinogen (0.2) E.U./dL Ur Leukocyte Esterase (NEGATIVE) Urine RBC (0-5/HPF) Urine WBC (0-5/HPF) Urine Bacteria (None) Ur Culture Indicated? Ethyl Alcohol ( - 10) mg/dL SARS-CoV-2 (PCR) Negative (Negative) 10/10/20 10/10/20 10/10/20 Range/Units 10:15 10:15 10:55 WBC (4.5-11.0) X10^3/uL RBC (4.0-5.2) X10^6/uL Hgb (12.0-16.0) g/dL Hct (36-46) % MCV (80-100) fL MCH (26-34) PG MCHC (30-36) % RDW (11.6-14.8) % Plt Count (150-400) X10^3/uL Neut % (Auto) (50-75) % Lymph % (Auto) (25-40) % [place] % (Auto) (3-14) % Eos % (Auto) (2-4) % Baso % (Auto) (0-2) % Neut # (Auto) (4614-0592) /uL Lymph # (Auto) (4045-2347) /uL [place] # (Auto) (0-900) /uL Eos # (Auto) (0-450) /uL Baso # (Auto) (0-100) /uL Sodium (137-145) mmol/L Potassium (3.4-5.1) mmol/L Chloride (98-107) mmol/L Carbon Dioxide (22-32) mmol/L BUN (7-17) mg/dL Creatinine (0.52-1.04) mg/dL Estimated GFR (>60) mL/min BUN/Creatinine Ratio (6-22) Glucose (80-110) mg/dL Lactate 1.7 (0.7-2.1) mmol/L Calcium (8.4-10.2) mg/dL Total Bilirubin (0.2-1.3) mg/dL AST (14-36) IU/L ALT (<35) IU/L Alkaline Phosphatase (38-126) U/L Total Protein (6.3-8.2) g/dL Albumin (3.5-5.0) g/dL Globulin (1.7-4.1) g/dL Albumin/Globulin Ratio (1.0-2.8) Lipase (23-300) U/L Procalcitonin (<0.5) ng/mL TSH 4.17 (0.47-4.68) uIU/mL Urine Color Urine Appearance Urine pH (4.5-8.0) Ur Specific [place] (1.000-1.035) Urine Protein (Negative) Urine Glucose (UA) (Negative) g/dL Urine Ketones (NEGATIVE) Urine Occult Blood (Negative) Urine Nitrate (Negative) Urine Bilirubin (NEGATIVE) Urine Urobilinogen (0.2) E.U./dL Ur Leukocyte Esterase (NEGATIVE) Urine RBC (0-5/HPF) Urine WBC (0-5/HPF) Urine Bacteria (None) Ur Culture Indicated? Ethyl Alcohol < 10 ( - 10) mg/dL SARS-CoV-2 (PCR) (Negative) 10/10/20 Range/Units 11:20 WBC (4.5-11.0) X10^3/uL RBC (4.0-5.2) X10^6/uL Hgb (12.0-16.0) g/dL Hct (36-46) % MCV (80-100) fL MCH (26-34) PG MCHC (30-36) % RDW (11.6-14.8) % Plt Count (150-400) X10^3/uL Neut % (Auto) (50-75) % Lymph % (Auto) (25-40) % [place] % (Auto) (3-14) % Eos % (Auto) (2-4) % Baso % (Auto) (0-2) % Neut # (Auto) (5115-6469) /uL Lymph # (Auto) (8938-1393) /uL [place] # (Auto) (0-900) /uL Eos # (Auto) (0-450) /uL Baso # (Auto) (0-100) /uL Sodium (137-145) mmol/L Potassium (3.4-5.1) mmol/L Chloride (98-107) mmol/L Carbon Dioxide (22-32) mmol/L BUN (7-17) mg/dL Creatinine (0.52-1.04) mg/dL Estimated GFR (>60) mL/min BUN/Creatinine Ratio (6-22) Glucose (80-110) mg/dL Lactate (0.7-2.1) mmol/L Calcium (8.4-10.2) mg/dL Total Bilirubin (0.2-1.3) mg/dL AST (14-36) IU/L ALT (<35) IU/L Alkaline Phosphatase (38-126) U/L Total Protein (6.3-8.2) g/dL Albumin (3.5-5.0) g/dL Globulin (1.7-4.1) g/dL Albumin/Globulin Ratio (1.0-2.8) Lipase (23-300) U/L Procalcitonin (<0.5) ng/mL TSH (0.47-4.68) uIU/mL Urine Color Yellow Urine Appearance Clear Urine pH 5.0 (4.5-8.0) Ur Specific [place] 1.015 (1.000-1.035) Urine Protein Negative (Negative) Urine Glucose (UA) Negative (Negative) g/dL Urine Ketones Negative (NEGATIVE) Urine Occult Blood Trace-lysed (Negative) Urine Nitrate Negative (Negative) Urine Bilirubin Negative (NEGATIVE) Urine Urobilinogen 0.2 (0.2) E.U./dL Ur Leukocyte Esterase Negative (NEGATIVE) Urine RBC 0-1/hpf (0-5/HPF) Urine WBC 0-1/hpf (0-5/HPF) Urine Bacteria Occasional (0-1) (None) Ur Culture Indicated? Cult not indicated Ethyl Alcohol ( - 10) mg/dL SARS-CoV-2 (PCR) (Negative) Imaging Data CT scan - abdomen/pelvis: Radiologist's Impression: Pao Peñaloza 75 F [address] [id number] Scan ReportSigned Patient: Pao Peñaloza CMR#: [id number]: 5Acct:[id number]/Sex: 75 / FDate of Service: 10/10/20Loc: EDAccession Number: [id number] Procedure: CT abdomen pelvis w con Ordering Provider: Guerline Grider D.O. PROCEDURE: CT ABDOMEN PELVIS W CON INDICATIONS: urinary frequency, no pain, confusion TECHNIQUE: After the administration of IV contrast, axial sections were acquired from the lung bases to the pubic symphysis. Coronal and sagittal reformats were performed. For radiation dose reduction, the following was used: automated exposure control, adjustment of mA and/or kV according to patient size. COMPARISON: [facility], CT, CT ANGIO CHEST PE PROTOCOL, 08/16/2018, 18:53. FINDINGS: Image quality: There is metallic streak artifact from patient's surgical hardware in the lower lumbar spine. Lung bases: A small right middle lobe nodule measuring 0.4 cm appears stable in size compared to the prior study. A small pleural base nodule anteriorly in the left lingula also appears similar to the prior study and likely represents scarring. There is mild dependent atelectasis in the right lower lobe. Heart: Normal in size. There is mild coronary arterial vascular calcification. ABDOMEN: Liver: Unremarkable. Gallbladder: Surgically absent. Biliary ducts: Unremarkable. Pancreas: Unremarkable. Spleen: Unremarkable. Adrenal Glands: Unremarkable. Kidneys and Ureters: Kidneys demonstrate no hydronephrosis. There is symmetric enhancement bilaterally. No perinephric fluid collections. Small hypodensity within the inferior right kidney is too small to characterize but likely represents a cyst. Stomach and Bowel: Stomach, small bowel loops, and colon are unremarkable. No evidence of appendicitis. Peritoneum: No abnormal intraperitoneal fluid. No free air. Ventral Wall: No hernia. Abdominal Nodes: No retroperitoneal or mesenteric adenopathy by size criteria. Vessels: Aorta and inferior vena cava are normal in size. PELVIS: Pelvic Organs: Uterus is surgically absent. Bladder: The bladder demonstrates normal wall thickness. No calcified urinary stones. Pelvic Nodes: No enlarged lymph nodes. Miscellaneous: No inguinal hernias are seen. Bones: Postsurgical changes are demonstrated status post posterior fixation and fusion at L3 through S1 with associated laminectomies at L4 and L5. There is a prior fracture at S1 with anterolisthesis and callus formation. Cysts IMPRESSION: 1. No CT evidence of cystitis or pyelonephritis. 2. Colonic diverticulosis without acute diverticulitis. 3. Extensive postsurgical changes within the lower lumbar spine as well as sequelae of a prior sacral fracture. Dictated by: Brian Sol M.D. on 10/10/2020 at 11:22 Approved by: Brian Sol M.D. on 10/10/2020 at 11:30 Chest x-ray: Radiologist's Impression: Pao Peñaloza Greg 75 F [address] [id number] ReportSigned Patient: Pao Peñaloza CMR#: [id number]: 5Acct:[id number]/Sex: 75 / FDate of Service: 10/10/20Loc: EDAccession Number: [id number] Procedure: XR chest 1V Ordering Provider: Guerline Grider D.O. PROCEDURE: XR CHEST 1V INDICATIONS: suspected sepsis TECHNIQUE: One view of the chest was acquired. COMPARISON: [facility], CR, XR CHEST 2V, 08/22/2018, 23:23. [facility], CR, XR CHEST 1V, 08/16/2018, 18:07. FINDINGS: Surgical changes and devices: None. Lungs and pleura: Lungs are clear. No pleural effusions or pneumothorax. Mediastinum: Mediastinal contours appear normal. Heart size is normal. Bones and chest wall: No suspicious bony lesions. Overlying soft tissues appear unremarkable. IMPRESSION: No acute cardiopulmonary disease. Dictated by: Kasey Patrick M.D. on 10/10/2020 at 11:19 Approved by: Kasey Patrick M.D. on 10/10/2020 at 11:20 ECG Data Interpretation: Sinus rhythm rate of 79 [place] 190 QRS of 142 and QTC of 481. Left axis deviation. Left bundle branch block. [facility] Narrative Medical decision making narrative: 75-year-old female comes with complaint of new confusion, she has been seen yesterday and was started on nitrofurantoin for UTI she only had 1 dose she has had some dysuria and frequency. Her urinalysis yesterday showed leukocytosis, prelim culture is positive for gram-negative bacilli E but only has 10,000 CFU per mL. Patient does have an increase in LFTs and lipase but is nontender on exam. CT abdomen pelvis does not show any acute changes, no biliary dilation, cholelithiasis or other changes that would explain her change. She does have a white count she has been afebrile, she has not been hypotensive or had any tachycardia but does have a positive procalcitonin. Patient was accepted by Dr. Navarro for observation for UTI/confusion but does not currently meet septic criteria. Discharge Plan Departure Patient Disposition: Admitted as Observation Clinical Impression: UTI (urinary tract infection), Acute confusion, Elevated LFTs Admit Date/Time: 10/10/20 12:44 Admit Provider: Isiah Navarro
[2020-10-10 10:22] LABS: Add Manual Diff / Slide Review NO; Basophils Absolute Auto 0 /uL (0-100); Basophils Percent Auto 0.1 % (0-2); Eosinophils Absolute Auto 100 /uL (0-450); Eosinophils Percent Auto 0.4 % (2-4); Hemoglobin 14.6 g/dL (12.0-16.0); Lymphocytes Absolute Auto 300 /uL (1100-4500); Mean Corpuscular Hemoglobin 32.2 PG (26-34); Mean Corpuscular Volume 94.8 fL (80-100); Monocytes Absolute Auto 700 /uL (0-900); Monocytes Percent Auto 4.2 % (3-14); Neutrophils Absolute Auto 14500 /uL (1500-7000); Neutrophils Percent Auto 93.3 % (50-75); Platelet Count 156 X10^3/uL (150-400); Red Blood Cell Count 4.53 X10^6/uL (4.0-5.2); Red Cell Distribution Width 13.5 % (11.6-14.8); White Blood Cell Count 15.5 X10^3/uL (4.5-11.0)
[2020-10-10 10:29] LABS: Lactate (Lactic Acid) 1.7 mmol/L (0.7-2.1)
[2020-10-10 10:30] LABS: Alanine Aminotransferase 40 IU/L (<35); Albumin 4.3 g/dL (3.5-5.0); Albumin Globulin Ratio 1.4 (1.0-2.8); Alkaline Phosphatase 74 U/L (38-126); Aspartate Aminotransferase 67 IU/L (14-36); BUN Creatinine Ratio 30.7 (6-22); Bilirubin Total 1.4 mg/dL (0.2-1.3); Blood Urea Nitrogen 27 mg/dL (7-17); Calcium 9.1 mg/dL (8.4-10.2); Carbon Dioxide 23 mmol/L (22-32); Chloride 106 mmol/L (98-107); Estimated Glomerular Filt Rate > 60.0 mL/min (>60); Glucose 139 mg/dL (80-110); HEMOLYSIS 34 (0-50); Lipase 1029 U/L (23-300); Potassium 4.2 mmol/L (3.4-5.1); Sodium 137 mmol/L (137-145); Total Protein 7.3 g/dL (6.3-8.2)
[2020-10-10] MEDS: SODIUM CHLORIDE 0.9% 1,000 ML 1000 ML IV (10:32)
[2020-10-10 10:33] LABS: COVID19 - ADMIT (NP swab/PCR) Negative (Negative)
--- NOTE | 2020-10-10 10:37 | DI.CT.S_ITS ---
PROCEDURE: CT ABDOMEN PELVIS W CON INDICATIONS: urinary frequency, no pain, confusion TECHNIQUE: After the administration of IV contrast, axial sections were acquired from the lung bases to the pubic symphysis. Coronal and sagittal reformats were performed. For radiation dose reduction, the following was used: automated exposure control, adjustment of mA and/or kV according to patient size. COMPARISON: [facility], CT, CT ANGIO CHEST PE PROTOCOL, 08/16/2018, 18:53. FINDINGS: Image quality: There is metallic streak artifact from patient's surgical hardware in the lower lumbar spine. Lung bases: A small right middle lobe nodule measuring 0.4 cm appears stable in size compared to the prior study. A small pleural base nodule anteriorly in the left lingula also appears similar to the prior study and likely represents scarring. There is mild dependent atelectasis in the right lower lobe. Heart: Normal in size. There is mild coronary arterial vascular calcification. ABDOMEN: Liver: Unremarkable. Gallbladder: Surgically absent. Biliary ducts: Unremarkable. Pancreas: Unremarkable. Spleen: Unremarkable. Adrenal Glands: Unremarkable. Kidneys and Ureters: Kidneys demonstrate no hydronephrosis. There is symmetric enhancement bilaterally. No perinephric fluid collections. Small hypodensity within the inferior right kidney is too small to characterize but likely represents a cyst. Stomach and Bowel: Stomach, small bowel loops, and colon are unremarkable. No evidence of appendicitis. Peritoneum: No abnormal intraperitoneal fluid. No free air. Ventral Wall: No hernia. Abdominal Nodes: No retroperitoneal or mesenteric adenopathy by size criteria. Vessels: Aorta and inferior vena cava are normal in size. PELVIS: Pelvic Organs: Uterus is surgically absent. Bladder: The bladder demonstrates normal wall thickness. No calcified urinary stones. Pelvic Nodes: No enlarged lymph nodes. Miscellaneous: No inguinal hernias are seen. Bones: Postsurgical changes are demonstrated status post posterior fixation and fusion at L3 through S1 with associated laminectomies at L4 and L5. There is a prior fracture at S1 with anterolisthesis and callus formation. Cysts IMPRESSION: 1. No CT evidence of cystitis or pyelonephritis. 2. Colonic diverticulosis without acute diverticulitis. 3. Extensive postsurgical changes within the lower lumbar spine as well as sequelae of a prior sacral fracture. Dictated by: Brian Sol M.D. on 10/10/2020 at 11:22 Approved by: Brian Sol M.D. on 10/10/2020 at 11:30
--- NOTE | 2020-10-10 11:05 | PC.NURSE ---
Pt states she didn't know she had been incontinent of bowel / bladder.
[2020-10-10] MEDS: PIPERACILLIN/TAZO 4.5 GM in SODIUM CHLORIDE 0.9% 100 ML 200 ML IV (11:13)
[2020-10-10 11:24] LABS: Ethanol (ETOH) < 10 mg/dL
[2020-10-10 11:33] LABS: Appearance Urine UA CLEAR; Bilirubin Urine UA NEGATIVE (NEGATIVE); Color Urine UA YELLOW; Glucose Urine UA NEGATIVE (Negative); Ketones Urine UA NEGATIVE (NEGATIVE); Leukocyte Esterase Urine UA NEGATIVE (NEGATIVE); Nitrite Urine UA NEGATIVE (Negative); Occult Blood Urine UA TRACE-LYSED (Negative); Protein Urine UA NEGATIVE (Negative); Specific Gravity Urine UA 1.015 (1.000-1.035); Urobilinogen Urine UA 0.2 E.U./dL (0.2)
[2020-10-10 11:54] LABS: Bacteria Urine Occasional (0-1); Culture Indicated Urine Cult Not Indicated; RBC Urine 0-1/HPF (0-5/HPF); WBC Urine 0-1/HPF (0-5/HPF)
[2020-10-10] MEDS: SODIUM CHLORIDE 0.9% 1055.06 ML IV (13:07)
--- NOTE | 2020-10-10 14:07 | PC.NURSE ---
Pt's called and informed of admission.
[2020-10-10 14:21] LABS: TSH w/ Reflex to FT4 4.17 uIU/mL (0.47-4.68)
[2020-10-10] MEDS: SODIUM CHLORIDE 0.9% 1,000 ML 100 ML IV (14:25)
[2020-10-10] MEDS: cefTRIAXone 1,000 MG in SODIUM CHLORIDE 0.9% 100 ML 200 ML IV (14:25)
--- NOTE | 2020-10-10 14:48 | P.HP_ITS ---
History of Present Illness History of Present Illness Date Patient Seen: 10/10/20 Time Patient Seen: 13:00 Chief complaint: UTI - General Weakness Narrative: Ms. De La Garza is a 75W with PMH breast CA s/p chemoradiation, hypothyroid, htn, urinary incontinence, CHF, afib who presents to the hospital today with confusion. She was seen yesterday in clinic complaining of urinary urgency and burning. She was diagnosed with a UTI and prescribed macrobid. She took one dose. Apparently she then developed confusion once she was at home. She is really unable to describe how she's feeling, other than out of it. She took no other new medications. She is currently denying any pain. No headache, no neck pain. No fevers. No cough, no shortness of breath. She denies currently having dysuria. NO abdominal pain, nausea, vomiting, or diarrhea. In the ED workup was done, vitals were unremarkable, she had no fever. Labs notable for WBC 15.5, chemistries unremarkable, AST 67, ast 40, bili 1.4, lipase 1029, procalcitonin 2.5, tsh 4.17. UA positive with leuks yesterday but today negative. Alcohol level negative. COVID negative. Chest xray showed no acute process. CT abdomen showed no acute process. She was given IV fluids, IV antibiotics and admitted for further treatment. Patient History Medical History Breast cancer Fusion of lumbar spine Hypertension Hypothyroid LBBB (left bundle branch block) Status post chemoradiation Urinary incontinence Surgical History H/O lumpectomy Hx of cholecystectomy Family & Social History Family History Mother No known health problems Father No known health problems Social History: household members spouse Safety & Behavioral: Feels Safe in Current Yes Environment Been Physically Hurt or No Threatened By a Person Tobacco & Substance use: Smoking Status Former smoker alcohol intake current alcohol intake frequency holiday/special occasion Substance Use Type does not use Meds Home Medications and Allergies Home Medications Medication Instructions Recorded Confirmed Type apixaban 5 mg tablet (Eliquis) 5 mg PO BID #60 tab 07/01/19 08/20/21 Rx nitrofurantoin 100 mg PO Q12H 5 Days #10 cap 10/09/20 10/10/20 Rx monohydrate/macrocrystals 100 mg capsule (Macrobid) fesoterodine 8 mg tablet,extended 8 mg PO DAILY 10/10/20 10/10/20 History release 24 hr (Toviaz) levothyroxine 137 mcg tablet 137 mcg PO QAM 10/10/20 10/10/20 History losartan 50 mg tablet 50 mg PO DAILY 10/10/20 10/10/20 History metoprolol tartrate 25 mg tablet 25 mg PO DAILY 10/10/20 10/10/20 History potassium chloride 10 mEq 10 meq PO DAILY 10/10/20 10/10/20 History capsule,extended release Allergies Allergy/AdvReac Type Severity Reaction Status Date / Time No Known Drug Allergies Allergy Verified 10/10/20 12:30 Review of Systems Review of Systems Narrative: 14 systems reviewed and negative aside from HPI Exam Vital Signs (past 8 hours): - 10/10/20 09:50 10/10/20 09:52 10/10/20 10:00 Temperature 98.1 F Pulse Rate 85 85 83 Respiratory Rate 18 Blood Pressure 129/61 131/64 Pulse Oximetry 99 93 94 10/10/20 10:15 10/10/20 10:36 10/10/20 10:52 Temperature Pulse Rate 83 81 86 Respiratory Rate 24 30 H Blood Pressure Pulse Oximetry 95 95 95 10/10/20 10:53 10/10/20 11:02 10/10/20 11:03 Temperature Pulse Rate 84 95 H 88 Respiratory Rate 32 H 19 22 Blood Pressure 135/62 147/66 H Pulse Oximetry 97 95 93 10/10/20 11:15 10/10/20 11:30 10/10/20 11:45 Temperature Pulse Rate 79 79 76 Respiratory Rate 30 H 28 H 24 Blood Pressure 137/65 Pulse Oximetry 96 96 94 10/10/20 12:00 10/10/20 12:15 10/10/20 12:30 Temperature Pulse Rate 75 75 75 Respiratory Rate 23 24 23 Blood Pressure 140/64 128/61 Pulse Oximetry 94 94 94 10/10/20 12:45 10/10/20 13:00 10/10/20 13:15 Temperature Pulse Rate 77 82 80 Respiratory Rate 23 26 H Blood Pressure 139/64 Pulse Oximetry 95 96 94 10/10/20 14:00 Temperature 99.9 F H Pulse Rate 88 Respiratory Rate 26 H Blood Pressure 143/71 H Pulse Oximetry 95 Oxygen Delivery Method Room Air Oxygen Flow Rate 0 Narrative Exam Narrative: GEN: no acute distress HEENT: moist mucous membranes, PERRL NECK: no JVD, trachea midline CV: regular rate and rhythm with no murmurs PULM: clear bilaterally, no wheezes, rhonchi, rales ABD: soft, nontender, nondistended, no organomegaly, normal bowel sounds EXT: warm and well perfused with no edema NEURO: confused, oriented to year/month, not date, oriented to place, slightly slow response to questions SKIN: no rashes noted PSYCH: pleasant Objective Labs Result Diagrams: 10/10/20 10:15 10/10/20 10:15 Labs: Laboratory Results - last 24 hr 10/10/20 10/10/20 10/10/20 09:55 10:15 10:15 WBC 15.5 H RBC 4.53 Hgb 14.6 Hct 43.0 MCV 94.8 MCH 32.2 MCHC 34.0 RDW 13.5 Plt Count 156 Neut % (Auto) 93.3 H Lymph % (Auto) 2.0 L [place] % (Auto) 4.2 Eos % (Auto) 0.4 L Baso % (Auto) 0.1 Neut # (Auto) 46287 H Lymph # (Auto) 300 L [place] # (Auto) 700 Eos # (Auto) 100 Baso # (Auto) 0 Sodium 137 Potassium 4.2 Chloride 106 Carbon Dioxide 23 BUN 27 H Creatinine 0.88 Estimated GFR > 60.0 BUN/Creatinine Ratio 30.7 H Glucose 139 H Lactate Calcium 9.1 Total Bilirubin 1.4 H AST 67 H ALT 40 H Alkaline Phosphatase 74 Total Protein 7.3 Albumin 4.3 Globulin 3.0 Albumin/Globulin Ratio 1.4 Lipase 1029 H Procalcitonin 2.50 H TSH Urine Color Urine Appearance Urine pH Ur Specific [place] Urine Protein Urine Glucose (UA) Urine Ketones Urine Occult Blood Urine Nitrate Urine Bilirubin Urine Urobilinogen Ur Leukocyte Esterase Urine RBC Urine WBC Urine Bacteria Ur Culture Indicated? Ethyl Alcohol SARS-CoV-2 (PCR) Negative 10/10/20 10/10/20 10/10/20 10:15 10:15 10:55 WBC RBC Hgb Hct MCV MCH MCHC RDW Plt Count Neut % (Auto) Lymph % (Auto) [place] % (Auto) Eos % (Auto) Baso % (Auto) Neut # (Auto) Lymph # (Auto) [place] # (Auto) Eos # (Auto) Baso # (Auto) Sodium Potassium Chloride Carbon Dioxide BUN Creatinine Estimated GFR BUN/Creatinine Ratio Glucose Lactate 1.7 Calcium Total Bilirubin AST ALT Alkaline Phosphatase Total Protein Albumin Globulin Albumin/Globulin Ratio Lipase Procalcitonin TSH 4.17 Urine Color Urine Appearance Urine pH Ur Specific [place] Urine Protein Urine Glucose (UA) Urine Ketones Urine Occult Blood Urine Nitrate Urine Bilirubin Urine Urobilinogen Ur Leukocyte Esterase Urine RBC Urine WBC Urine Bacteria Ur Culture Indicated? Ethyl Alcohol < 10 SARS-CoV-2 (PCR) 10/10/20 11:20 WBC RBC Hgb Hct MCV MCH MCHC RDW Plt Count Neut % (Auto) Lymph % (Auto) [place] % (Auto) Eos % (Auto) Baso % (Auto) Neut # (Auto) Lymph # (Auto) [place] # (Auto) Eos # (Auto) Baso # (Auto) Sodium Potassium Chloride Carbon Dioxide BUN Creatinine Estimated GFR BUN/Creatinine Ratio Glucose Lactate Calcium Total Bilirubin AST ALT Alkaline Phosphatase Total Protein Albumin Globulin Albumin/Globulin Ratio Lipase Procalcitonin TSH Urine Color Yellow Urine Appearance Clear Urine pH 5.0 Ur Specific [place] 1.015 Urine Protein Negative Urine Glucose (UA) Negative Urine Ketones Negative Urine Occult Blood Trace-lysed Urine Nitrate Negative Urine Bilirubin Negative Urine Urobilinogen 0.2 Ur Leukocyte Esterase Negative Urine RBC 0-1/hpf Urine WBC 0-1/hpf Urine Bacteria Occasional (0-1) Ur Culture Indicated? Cult not indicated Ethyl Alcohol SARS-CoV-2 (PCR) Assessment & Plan Assessment & Plan narrative: Ms. De La Garza is a 75W with PMH CHF, Afib, HTN, hypothyroid who presents with confusion and recently was diagnosed with a UTI. 1. Acute encephalopathy -probable secondary to UTI -less likely encephalitis/meningitis as she has no other neuro symptoms, pain, or fever -unlikely but possibly could be reaction to macrobid -with elevated wbc, procalcitonin consistent with infection, monitor closely for other infectious symptoms -if encephalopathy does not improve with antibiotics and fluids, consider head imaging 2. UTI -diagnosed with UTI as outpatient yesterday, started on macrobid -ua today unremarkable after starting abx -urine culture yesterday started growing gram negative bacilli <10,000 cfu -ordered for ceftriaxone -follow up final cultures 3. Transaminitis, elevated lipase -hepatitis labs sent by ED, have low suspicion as etiology -patient clinically does not have pancreatitis -repeat lipase in AM 4. HTN -hold losartan for now 5. Afib, paroxysmal -continue eliquis 6. Hypothyroidism -tsh normal -continue home dose synthroid CODE: discussed at length with patient who refused to decide on a code status at this point, proxy is jonathon de la garza spouse DVT ppx: on apixaban at home I have utilized all available immediate resources to obtain, update, or review the patient's current medications. Quality MIPS - Admit I confirm the patient?s Advance Care Plan is present, Code status is documented, Surrogate decision maker is in patient?s record [If Yes, STOP here]: No
--- NOTE | 2020-10-10 14:52 | PC.NURSE ---
Patient admitted to room 206 for uti. She is alert and oriented 2/3. She knows the date, year, and where she is. Patient skin assessment done and put under physical assessment in chart. She has some bruising, and a small open area to her r.inner buttocks cheek. Patient slightly sob but this has resolved since patient is sleeping. She has IV antibiotic infusing now, with NS at 100cc/hr. IV wnl and she is tolerating fluids well. She also has a morrow catheter present that is putting out yellow urine. Had a small emesis of 5cc and is now snoozing comfortably. will be here to visit shortly.
[2020-10-11 00:40] VITALS: BP 111/60; PULSE 74; RESP 20; TEMP 36.6; O2SAT 96
[2020-10-11 05:31] LABS: HBsAg Screen Negative (Negative); Hepatitis A Antibody IgM Negative (Negative); Hepatitis B Core Antibody IgM Negative (Negative); Hepatitis C Antibody <0.1 s/co ratio (0.0-0.9)
[2020-10-11 08:00] VITALS: BP 126/63; PULSE 71; RESP 18; TEMP 35.8; O2SAT 95
[2020-10-11] MEDS: SODIUM CHLORIDE 0.9% 1,000 ML 100 ML IV (08:59)
[2020-10-11 09:00] LABS: Add Manual Diff / Slide Review NO; Basophils Absolute Auto 0 /uL (0-100); Basophils Percent Auto 0.2 % (0-2); Eosinophils Absolute Auto 300 /uL (0-450); Eosinophils Percent Auto 2.1 % (2-4); Hematocrit 39.1 % (36-46); Hemoglobin 13.3 g/dL (12.0-16.0); Lymphocytes Absolute Auto 500 /uL (1100-4500); Mean Corpuscular HGB Conc 34.1 % (30-36); Mean Corpuscular Hemoglobin 32.2 PG (26-34); Mean Corpuscular Volume 94.4 fL (80-100); Monocytes Absolute Auto 600 /uL (0-900); Monocytes Percent Auto 4.4 % (3-14); Neutrophils Absolute Auto 11600 /uL (1500-7000); Neutrophils Percent Auto 89.3 % (50-75); Platelet Count 142 X10^3/uL (150-400); Red Blood Cell Count 4.14 X10^6/uL (4.0-5.2); Red Cell Distribution Width 13.3 % (11.6-14.8)
[2020-10-11 09:13] LABS: Alanine Aminotransferase 141 IU/L (<35); Albumin 3.3 g/dL (3.5-5.0); Albumin Globulin Ratio 1.2 (1.0-2.8); Alkaline Phosphatase 82 U/L (38-126); Aspartate Aminotransferase 108 IU/L (14-36); BUN Creatinine Ratio 27.4 (6-22); Bilirubin Conjugated 2.2 md/dL (0.0-0.3); Bilirubin Total 4.8 mg/dL (0.2-1.3); Bilirubin Unconjugated 1.5 mg/dL (0.0-1.1); Blood Urea Nitrogen 20 mg/dL (7-17); Calcium 7.9 mg/dL (8.4-10.2); Carbon Dioxide 23 mmol/L (22-32); Chloride 106 mmol/L (98-107); Estimated Glomerular Filt Rate > 60.0 mL/min (>60); Globulin 2.8 g/dL (1.7-4.1); Glucose 115 mg/dL (80-110); HEMOLYSIS 16 (0-50); HEMOLYSIS < 15 (0-50); Magnesium 1.7 mg/dL (1.6-2.3); Phosphorous 2.4 mg/dL (2.8-4.1); Potassium 3.7 mmol/L (3.4-5.1); Sodium 135 mmol/L (137-145); Total Protein 6.1 g/dL (6.3-8.2)
[2020-10-11 09:23] LABS: Lipase 3986 U/L (23-300)
[2020-10-11] MEDS: METOPROLOL IR 25 MG TABLET PO (09:32)
--- NOTE | 2020-10-11 11:26 | PC.NURSE ---
Assess- Patient is Alert and oriented x3 this morning. Her morrow catheter has been taken out and she does have brownish/straw colored urine. Up with one person assist and walker. has rounded on patient and she is going to be discharged home today. She will get a dose of oral antibiotics here and then prescription has been sent to pharmacy.
[2020-10-11] MEDS: TRIMETH/SULFA 160/800 (DS) TABLET 1 TAB PO (12:03)
--- NOTE | 2020-10-11 12:04 | CM.IDA ---
Initial DCP Assessment Note Pt is a 75 yo female, resident of [place], [place], arrives to the ED w/spouse feeling weak and out of it, recently dx w/UTI. Patient has improved and being discharged home today w/spouse PCP: Not local, PCP in [place] Payer: [employer] Reviewed chart, met w/patient this morning to introduce role. Patient is in good spirits, states she is eager to return to she and her 's boat, they are on their annual boating vacation and still plan to travel, via boat, to the [facility] and hopefully up to [facility]. Patient denies needs from this [facility]; No needs expected from DC planning team although will remain available in case this changes today before DC. CHIDI Tomas
--- NOTE | 2020-10-11 15:39 | P.DS_ITS ---
History of Present Illness History of Present Illness Chief complaint: UTI - General Weakness Narrative: Ms. Peñaloza is a 75W with PMH breast CA s/p chemoradiation, hypothyroid, htn, urinary incontinence, CHF, afib who presents to the hospital today with confusion. She was seen yesterday in clinic complaining of urinary urgency and burning. She was diagnosed with a UTI and prescribed macrobid. She took one dose. Apparently she then developed confusion once she was at home. She is really unable to describe how she's feeling, other than out of it. She took no other new medications. She is currently denying any pain. No headache, no neck pain. No fevers. No cough, no shortness of breath. She denies currently having dysuria. NO abdominal pain, nausea, vomiting, or diarrhea. In the ED workup was done, vitals were unremarkable, she had no fever. Labs notable for WBC 15.5, chemistries unremarkable, AST 67, ast 40, bili 1.4, lipase 1029, procalcitonin 2.5, tsh 4.17. UA positive with leuks yesterday but today negative. Alcohol level negative. COVID negative. Chest xray showed no acute process. CT abdomen showed no acute process. She was given IV fluids, IV antibiotics and admitted for further treatment. Discharge Providers Provider Date of admission: 10/10/20 12:44 Discharge Date: 10/11/20 Consults: 10/10/20 19:13 Consult to Respiratory Therapy Evaluate & Treat Comment: Physician Instructions: Evaluate and treat Discharge provider: Marcelo Perkins MD Summary Hospital Course Discharge Diagnosis: 1. Acute encephalopathy, resolved 2. Acute urinary tract infection secondary to Citrobacter organism 3. Transaminitis, mild 4. Elevated lipase undetermined significance not representing acute pancreatitis 5. Hypertension 6. History of paroxysmal atrial fibrillation 7. Hypothyroidism Ms. Peñaloza is a 75W with PMH CHF, Afib, HTN, hypothyroid who presents with confusion and recently was diagnosed with a UTI. Patient was started on IV fluids and antibiotic. Mental status cleared up by the next day and she appears back to normal at this time. Presumably confusion was due to UTI. Her TSH was normal on thyroid replacement. She has been afebrile and white blood cell count has improved. Urine culture grew Citrobacter and she is being discharged on B actrim based on sensitivities. On exam, she is alert and oriented and in no acute distress. She expresses interest to be discharged home. Her permanent residence is in [place]. Status at Discharge Cognitive/behavioral status at discharge: oriented Functional status at discharge: independent ambulation Overall status at discharge: patient is progressing back to baseline Exam Vital Signs (past 8 hours): - 10/11/20 08:00 Temperature 96.4 F L Pulse Rate 71 Respiratory Rate 18 Blood Pressure 126/63 Pulse Oximetry 95 Oxygen Delivery Method Room Air Oxygen Flow Rate 0 Objective Labs Result Diagrams: 10/11/20 08:55 10/11/20 08:55 Labs: Laboratory Results - last 24 hr 10/10/20 10/11/20 10/11/20 13:48 08:55 08:55 WBC 13.0 H RBC 4.14 Hgb 13.3 Hct 39.1 MCV 94.4 MCH 32.2 MCHC 34.1 RDW 13.3 Plt Count 142 L Neut % (Auto) 89.3 H Lymph % (Auto) 4.0 L [place] % (Auto) 4.4 Eos % (Auto) 2.1 Baso % (Auto) 0.2 Neut # (Auto) 84023 H Lymph # (Auto) 500 L [place] # (Auto) 600 Eos # (Auto) 300 Baso # (Auto) 0 Sodium Potassium Chloride Carbon Dioxide BUN Creatinine Estimated GFR BUN/Creatinine Ratio Glucose Calcium Phosphorus Magnesium Total Bilirubin 4.8 H Conjugated Bilirubin 2.2 H Unconjugated Bilirubin 1.5 H AST 108 H ALT 141 H Alkaline Phosphatase 82 Total Protein 6.1 L Albumin 3.3 L Globulin 2.8 Albumin/Globulin Ratio 1.2 Lipase 3986 H D Hepatitis A IgM Ab Negative Hep Bs Antigen Negative Hep B Core IgM Ab Negative Hepatitis C Antibody <0.1 Hep C Ab Signal/Cutoff Comment 10/11/20 08:55 WBC RBC Hgb Hct MCV MCH MCHC RDW Plt Count Neut % (Auto) Lymph % (Auto) [place] % (Auto) Eos % (Auto) Baso % (Auto) Neut # (Auto) Lymph # (Auto) [place] # (Auto) Eos # (Auto) Baso # (Auto) Sodium 135 L Potassium 3.7 Chloride 106 Carbon Dioxide 23 BUN 20 H Creatinine 0.73 Estimated GFR > 60.0 BUN/Creatinine Ratio 27.4 H Glucose 115 H Calcium 7.9 L Phosphorus 2.4 L Magnesium 1.7 Total Bilirubin Conjugated Bilirubin Unconjugated Bilirubin AST ALT Alkaline Phosphatase Total Protein Albumin Globulin Albumin/Globulin Ratio Lipase Hepatitis A IgM Ab Hep Bs Antigen Hep B Core IgM Ab Hepatitis C Antibody Hep C Ab Signal/Cutoff PFSH Medical History Breast cancer Fusion of lumbar spine Hypertension Hypothyroid LBBB (left bundle branch block) Status post chemoradiation Urinary incontinence Surgical History H/O lumpectomy Hx of cholecystectomy Family History Mother No known health problems Father No known health problems Social History marital status: household members: spouse Smoking Status: Former smoker alcohol intake: current substance use type: does not use additional social history: Lives in [place] Discharge Plan Discharge Plan Patient Disposition: Home Discharge orders & Medications Prescriptions: New sulfamethoxazole-trimethoprim 800-160 mg tablet 1 tab PO BID Qty: 10 RF: 0 Continued losartan 50 mg tablet 50 mg PO DAILY RF: 0 levothyroxine 137 mcg tablet 137 mcg PO QAM RF: 0 potassium chloride 10 mEq capsule, extended release 10 meq PO DAILY RF: 0 metoprolol tartrate 25 mg tablet 25 mg PO DAILY RF: 0 Toviaz 8 mg tablet extended release 24 hr 8 mg PO DAILY RF: 0 Eliquis 5 mg Tablet 5 mg PO BID Qty: 60 RF: 0 Discontinued nitrofurantoin monohyd/m-cryst [Macrobid] 100 mg capsule 100 mg PO Q12H 5 Days Qty: 10 RF: 0 Follow up/Referrals: Miscellaneous,Doctor, MD [Non-Staff] - Discharge Health Status Multidrug resistant organism: No MDRO Diet/Activity/Treatments Diet: Regular Visit Report/Discharge Packet Instructions: Urinary Tract Infection, Heart Failure, DI for Urinary Tract Infection (UTI), Sulfamethoxazole/Trimethoprim (By mouth) Discharge Data Attending Provider: Isiah Navarro Quality VTE Deep Vein Thrombosis/Pulmonary Embolism Present on Admission: No
== END 2020-10-11 13:15 | disposition home or self-care (01) ==
LOC: ED 11:28 → AC 12:44
PROVIDERS: Admitting Provider Internal Medicine; Emergency Provider Emergency Medicine; Referring Provider Emergency Medicine; Visit Provider Internal Medicine
DX: R41.0 Disorientation, unspecified (principal); N39.0 Urinary tract infection, site not specified; B96.89 Other specified bacterial agents as the cause of diseases classified elsewhere; R74.01 Elevation of levels of liver transaminase levels; R30.0 Dysuria; R35.0 Frequency of micturition; R32 Unspecified urinary incontinence; I50.9 Heart failure, unspecified; Z79.01 Long term (current) use of anticoagulants; E03.9 Hypothyroidism, unspecified; I10 Essential (primary) hypertension; Z20.822 Contact with and (suspected) exposure to COVID-19
CPT/HCPCS: 36415; 51702; 71045; 74177; 80048; 80053; 80074; 80076; 80320; 81001; 83605; 83690; 83735; 84100; 84145; 84443; 85025; 87040; 87635; 93005; 93010; 94760; 96361; 96365; 96367; 99285; C9803; G0378; J0696; J2543; Q9967

== ENCOUNTER 2020-10-12 16:26 | Emergency (ER) | payer MEDICARE, OTHER, SELFPAY ==
[2020-10-10 13:04] VITALS: BMI 37.3
[2020-10-12] VITALS (20 sets, daily range): BP systolic 101–168; BP diastolic 52–77; PULSE 66–97; RESP 13–39; TEMP 36.2–38.6; O2SAT 92–99
[2020-10-12] MEDS: ONDANSETRON 4 MG/2 ML INJ (16:33)
--- NOTE | 2020-10-12 16:44 | ED_ITS ---
HPI - Sepsis <Jacob Rondon PA-C - Last Filed: 10/15/20 19:43> General Chief Complaint: Fever Evaluation Narrative: Pao presents today with chief complaint of fever and increased weakness. She was discharged from the hospital with diagnosis of urinary tract infection and a prescription of Bactrim. She has been taking the antibiotic as prescribed but has had significant increased weakness over the last day. She denies any significant difficulty breathing, chest pain, lower extremity swelling or edema, nausea, vomiting, diarrhea or any other acute concerns or complaints at this time. Review of Systems <Jacob Rondon PA-C - Last Filed: 10/15/20 19:43> Review of Systems Narrative: As per HPI Patient History <Jacob Rondon PA-C - Last Filed: 10/15/20 19:43> Medical History (Updated 10/12/20 @ 20:10 by Chase Stern MD) Breast cancer Fusion of lumbar spine Hypertension Hypothyroid LBBB (left bundle branch block) Status post chemoradiation Urinary incontinence Surgical History H/O lumpectomy Hx of cholecystectomy Family History Mother No known health problems Father No known health problems Social History marital status: household members: spouse Smoking Status: Former smoker alcohol intake: current substance use type: does not use additional social history: Lives in [place] Smoking Status: Former smoker alcohol intake frequency: holidays/special occasions only Substance Use Type: does not use Exam <Jacob Rondon PA-C - Last Filed: 10/15/20 19:43> Narrative Exam Narrative: Exam Narrative: Const General: Lethargic, ill-appearing Nutritional Appearance: Elevated BMI Orientation: alert and oriented x3 HENMT Head: normal to inspection and atraumatic Ears: hearing grossly normal bilaterally Nose: external nose normal and nares normal Face and sinus: normal facial exam Neck Neck: normal visual inspection and supple Resp Effort & Inspection: Tachypneic, bilateral crackles noted on auscultation. Cardiac Tachycardic rate, regular rhythm, no discernible murmurs, rubs or gallops. GI Nondistended, nontender to palpation, normal bowel sounds. Neuro General: alert but lethargic, oriented x3, increased weakness to all 4 extremities. Speech: speech normal Initial Vital Signs Initial Vital Signs: Vital Signs Temperature 101.1 F H 10/12/20 16:30 Pulse Rate 97 H 10/12/20 16:30 Respiratory Rate 24 10/12/20 16:30 Blood Pressure 168/77 H 10/12/20 16:30 Pulse Oximetry 97 10/12/20 16:30 <Chase Stern MD - Last Filed: 10/13/20 17:57> Initial Vital Signs Initial Vital Signs: Vital Signs Temperature 101.1 F H 10/12/20 16:30 Pulse Rate 97 H 10/12/20 16:30 Respiratory Rate 24 10/12/20 16:30 Blood Pressure 168/77 H 10/12/20 16:30 Pulse Oximetry 97 10/12/20 16:30 Course <Jacob Rondon PA-C - Last Filed: 10/15/20 19:43> Orders Ordered: Discontinued Medications Acetaminophen (Acetaminophen 325 Mg Tablet) 975 mg PO NOW ONE Stop: 10/12/20 17:02 Last Admin: 10/12/20 17:18 Dose: 975 mg Documented by: CORNEL Apixaban (Apixaban 5 Mg Tablet) 5 mg PO NOW ONE Stop: 10/13/20 14:08 Last Admin: 10/13/20 14:25 Dose: Not Given Documented by: MARIE Sodium Chloride (Normal Saline 0.9%) 1,000 mls @ 1,000 mls/hr IV BOLUS ONE Stop: 10/12/20 17:59 Last Infusion: 10/12/20 18:35 Dose: 0 mls/hr Documented by: Admin: 10/12/20 17:17 Dose: 1,000 mls/hr Documented by: CORNEL Ceftriaxone Sodium 2,000 mg/ (Sodium Chloride) 100 mls @ 200 mls/hr IV NOW ONE Stop: 10/12/20 17:03 Last Infusion: 10/12/20 17:46 Dose: 0 mls/hr Documented by: Admin: 10/12/20 17:18 Dose: 200 mls/hr Documented by: CORNEL Sodium Chloride (Normal Saline 0.9%) 1,000 mls @ 125 mls/hr IV CONT CYNDI Last Infusion: 10/13/20 16:22 Dose: 0 mls/hr Documented by: Infusion: 10/13/20 16:07 Dose: 75 mls/hr Documented by: Infusion: 10/13/20 14:43 Dose: 100 mls/hr Documented by: Admin: 10/13/20 13:59 Dose: 125 mls/hr Documented by: MARIE Levothyroxine Sodium (Levothyroxine 137 Mcg Tablet) 137 mcg PO NOW ONE Stop: 10/13/20 14:09 Last Admin: 10/13/20 14:25 Dose: Not Given Documented by: MARIE Losartan Potassium (Losartan 50 Mg Tablet) 50 mg PO NOW ONE Stop: 10/13/20 14:08 Last Admin: 10/13/20 14:25 Dose: Not Given Documented by: MARIE Ondansetron HCl (Ondansetron 4 Mg/2 Ml Inj) 4 mg IV NOW ONE Stop: 10/12/20 16:33 Last Admin: 10/12/20 16:33 Dose: Not Given Documented by: MARIE Potassium Chloride (Potassium Chloride 10 Meq Tab) 10 meq PO NOW ONE Stop: 10/13/20 14:08 Last Admin: 10/13/20 14:25 Dose: Not Given Documented by: MARIE Vital Signs Vital signs: Vital Signs - 8 hr 10/13/20 10:00 10/13/20 10:30 10/13/20 11:00 Temperature Pulse Rate 69 67 71 Respiratory Rate 19 17 22 Blood Pressure 119/60 124/58 L 133/65 Pulse Oximetry 97 98 97 10/13/20 11:30 10/13/20 12:00 10/13/20 12:30 Temperature Pulse Rate 67 69 69 Respiratory Rate 24 24 19 Blood Pressure 135/61 Pulse Oximetry 97 98 98 10/13/20 12:31 10/13/20 13:00 10/13/20 13:30 Temperature 98.4 F Pulse Rate 70 67 67 Respiratory Rate 24 20 13 Blood Pressure 130/66 114/57 L 127/60 Pulse Oximetry 97 98 97 10/13/20 14:00 10/13/20 14:01 10/13/20 14:30 Temperature Pulse Rate 71 71 71 Respiratory Rate 19 Blood Pressure 138/67 Pulse Oximetry 98 99 98 10/13/20 14:31 10/13/20 15:00 10/13/20 15:30 Temperature Pulse Rate 73 66 60 Respiratory Rate 24 20 17 Blood Pressure 137/64 124/68 125/62 Pulse Oximetry 98 98 97 10/13/20 16:00 Temperature Pulse Rate 62 Respiratory Rate 21 Blood Pressure 131/62 Pulse Oximetry 97 <Chase Stern MD - Last Filed: 10/13/20 17:57> Course Course Narrative: No new issues during course of stay Orders Ordered: Discontinued Medications Acetaminophen (Acetaminophen 325 Mg Tablet) 975 mg PO NOW ONE Stop: 10/12/20 17:02 Last Admin: 10/12/20 17:18 Dose: 975 mg Documented by: CORNEL Apixaban (Apixaban 5 Mg Tablet) 5 mg PO NOW ONE Stop: 10/13/20 14:08 Last Admin: 10/13/20 14:25 Dose: Not Given Documented by: MARIE Sodium Chloride (Normal Saline 0.9%) 1,000 mls @ 1,000 mls/hr IV BOLUS ONE Stop: 10/12/20 17:59 Last Infusion: 10/12/20 18:35 Dose: 0 mls/hr Documented by: Admin: 10/12/20 17:17 Dose: 1,000 mls/hr Documented by: CORNEL Ceftriaxone Sodium 2,000 mg/ (Sodium Chloride) 100 mls @ 200 mls/hr IV NOW ONE Stop: 10/12/20 17:03 Last Infusion: 10/12/20 17:46 Dose: 0 mls/hr Documented by: Admin: 10/12/20 17:18 Dose: 200 mls/hr Documented by: CORNEL Sodium Chloride (Normal Saline 0.9%) 1,000 mls @ 125 mls/hr IV CONT CYNDI Last Infusion: 10/13/20 16:22 Dose: 0 mls/hr Documented by: Infusion: 10/13/20 16:07 Dose: 75 mls/hr Documented by: Infusion: 10/13/20 14:43 Dose: 100 mls/hr Documented by: Admin: 10/13/20 13:59 Dose: 125 mls/hr Documented by: MARIE Levothyroxine Sodium (Levothyroxine 137 Mcg Tablet) 137 mcg PO NOW ONE Stop: 10/13/20 14:09 Last Admin: 10/13/20 14:25 Dose: Not Given Documented by: MARIE Losartan Potassium (Losartan 50 Mg Tablet) 50 mg PO NOW ONE Stop: 10/13/20 14:08 Last Admin: 10/13/20 14:25 Dose: Not Given Documented by: MARIE Ondansetron HCl (Ondansetron 4 Mg/2 Ml Inj) 4 mg IV NOW ONE Stop: 10/12/20 16:33 Last Admin: 10/12/20 16:33 Dose: Not Given Documented by: MARIE Potassium Chloride (Potassium Chloride 10 Meq Tab) 10 meq PO NOW ONE Stop: 10/13/20 14:08 Last Admin: 10/13/20 14:25 Dose: Not Given Documented by: MARIE Reevaluation(s) Reevaluation #1: Updated patient awaiting [facility] bed. Time: 22:17 Consultations Consultation #1: Spoke with surgeon here on-call dr yap, patient needs to be transferred for ERCP capability. Time: 20:07 Consultation #2: Spoke with [facility] Dr. Charlton with Gastroenterology, agrees patient will need MRCP and ERCP Time: 21:54 Additional Consultation(s): Spoke with hospitalist [facility] dr jurado, accepts patient pending bed availability in the morning Vital Signs Vital signs: Vital Signs - 8 hr 10/13/20 10:00 10/13/20 10:30 10/13/20 11:00 Temperature Pulse Rate 69 67 71 Respiratory Rate 19 17 22 Blood Pressure 119/60 124/58 L 133/65 Pulse Oximetry 97 98 97 10/13/20 11:30 10/13/20 12:00 10/13/20 12:30 Temperature Pulse Rate 67 69 69 Respiratory Rate 24 24 19 Blood Pressure 135/61 Pulse Oximetry 97 98 98 10/13/20 12:31 10/13/20 13:00 10/13/20 13:30 Temperature 98.4 F Pulse Rate 70 67 67 Respiratory Rate 24 20 13 Blood Pressure 130/66 114/57 L 127/60 Pulse Oximetry 97 98 97 10/13/20 14:00 10/13/20 14:01 10/13/20 14:30 Temperature Pulse Rate 71 71 71 Respiratory Rate 19 Blood Pressure 138/67 Pulse Oximetry 98 99 98 10/13/20 14:31 10/13/20 15:00 10/13/20 15:30 Temperature Pulse Rate 73 66 60 Respiratory Rate 24 20 17 Blood Pressure 137/64 124/68 125/62 Pulse Oximetry 98 98 97 10/13/20 16:00 Temperature Pulse Rate 62 Respiratory Rate 21 Blood Pressure 131/62 Pulse Oximetry 97 MDM - Sepsis <Jacob Rondon PA-C - Last Filed: 10/15/20 19:43> Lab Data Result diagrams: 10/12/20 16:37 10/12/20 16:37 Labs: Lab Results 10/12/20 10/12/20 10/12/20 Range/Units 16:30 16:37 16:37 WBC 15.9 H (4.5-11.0) X10^3/uL RBC 4.28 (4.0-5.2) X10^6/uL Hgb 14.0 (12.0-16.0) g/dL Hct 40.3 (36-46) % MCV 94.2 (80-100) fL MCH 32.6 (26-34) PG MCHC 34.7 (30-36) % RDW 13.5 (11.6-14.8) % Plt Count 148 L (150-400) X10^3/uL Neut % (Auto) 93.3 H (50-75) % Lymph % (Auto) 2.6 L (25-40) % Gregg % (Auto) 3.2 (3-14) % Eos % (Auto) 0.4 L (2-4) % Baso % (Auto) 0.5 (0-2) % Neut # (Auto) 46680 H (2098-6070) /uL Lymph # (Auto) 400 L (7149-1953) /uL Gregg # (Auto) 500 (0-900) /uL Eos # (Auto) 100 (0-450) /uL Baso # (Auto) 100 (0-100) /uL Sodium 134 L (137-145) mmol/L Potassium 3.5 (3.4-5.1) mmol/L Chloride 101 (98-107) mmol/L Carbon Dioxide 25 (22-32) mmol/L BUN 16 (7-17) mg/dL Creatinine 1.08 H (0.52-1.04) mg/dL Estimated GFR 49.3 L (>60) mL/min BUN/Creatinine Ratio 14.8 (6-22) Glucose 118 H (80-110) mg/dL Lactate (0.7-2.1) mmol/L Calcium 8.8 (8.4-10.2) mg/dL Total Bilirubin 6.5 H (0.2-1.3) mg/dL AST 56 H (14-36) IU/L ALT 95 H (<35) IU/L Alkaline Phosphatase 128 H D (38-126) U/L Total Creatine Kinase (30-135) U/L CK-MB (CK-2) CK-MB (CK-2) Rel Index Troponin I (0.01-0.034) ng/mL NT-Pro-B Natriuret Pep (<450) pg/mL Total Protein 7.3 (6.3-8.2) g/dL Albumin 4.0 (3.5-5.0) g/dL Globulin 3.3 (1.7-4.1) g/dL Albumin/Globulin Ratio 1.2 (1.0-2.8) Lipase 1778 H D (23-300) U/L Procalcitonin 4.00 H (<0.5) ng/mL Urine RBC (0-5/HPF) Urine WBC (0-5/HPF) Urine Bacteria (None) Ur Culture Indicated? Micro UA Comment SARS-CoV-2 (PCR) Negative (Negative) 10/12/20 10/12/20 10/12/20 Range/Units 16:37 16:37 16:37 WBC (4.5-11.0) X10^3/uL RBC (4.0-5.2) X10^6/uL Hgb (12.0-16.0) g/dL Hct (36-46) % MCV (80-100) fL MCH (26-34) PG MCHC (30-36) % RDW (11.6-14.8) % Plt Count (150-400) X10^3/uL Neut % (Auto) (50-75) % Lymph % (Auto) (25-40) % Gregg % (Auto) (3-14) % Eos % (Auto) (2-4) % Baso % (Auto) (0-2) % Neut # (Auto) (7121-5636) /uL Lymph # (Auto) (3198-4666) /uL Gregg # (Auto) (0-900) /uL Eos # (Auto) (0-450) /uL Baso # (Auto) (0-100) /uL Sodium (137-145) mmol/L Potassium (3.4-5.1) mmol/L Chloride (98-107) mmol/L Carbon Dioxide (22-32) mmol/L BUN (7-17) mg/dL Creatinine (0.52-1.04) mg/dL Estimated GFR (>60) mL/min BUN/Creatinine Ratio (6-22) Glucose (80-110) mg/dL Lactate 2.2 H (0.7-2.1) mmol/L Calcium (8.4-10.2) mg/dL Total Bilirubin (0.2-1.3) mg/dL AST (14-36) IU/L ALT (<35) IU/L Alkaline Phosphatase (38-126) U/L Total Creatine Kinase 63 (30-135) U/L CK-MB (CK-2) TNP CK-MB (CK-2) Rel Index TNP Troponin I < 0.012 (0.01-0.034) ng/mL NT-Pro-B Natriuret Pep 5360 H (<450) pg/mL Total Protein (6.3-8.2) g/dL Albumin (3.5-5.0) g/dL Globulin (1.7-4.1) g/dL Albumin/Globulin Ratio (1.0-2.8) Lipase (23-300) U/L Procalcitonin (<0.5) ng/mL Urine RBC (0-5/HPF) Urine WBC (0-5/HPF) Urine Bacteria (None) Ur Culture Indicated? Micro UA Comment SARS-CoV-2 (PCR) (Negative) 10/12/20 10/12/20 Range/Units 17:01 19:20 WBC (4.5-11.0) X10^3/uL RBC (4.0-5.2) X10^6/uL Hgb (12.0-16.0) g/dL Hct (36-46) % MCV (80-100) fL MCH (26-34) PG MCHC (30-36) % RDW (11.6-14.8) % Plt Count (150-400) X10^3/uL Neut % (Auto) (50-75) % Lymph % (Auto) (25-40) % Gregg % (Auto) (3-14) % Eos % (Auto) (2-4) % Baso % (Auto) (0-2) % Neut # (Auto) (3131-7891) /uL Lymph # (Auto) (7932-8599) /uL Gregg # (Auto) (0-900) /uL Eos # (Auto) (0-450) /uL Baso # (Auto) (0-100) /uL Sodium (137-145) mmol/L Potassium (3.4-5.1) mmol/L Chloride (98-107) mmol/L Carbon Dioxide (22-32) mmol/L BUN (7-17) mg/dL Creatinine (0.52-1.04) mg/dL Estimated GFR (>60) mL/min BUN/Creatinine Ratio (6-22) Glucose (80-110) mg/dL Lactate 0.9 (0.7-2.1) mmol/L Calcium (8.4-10.2) mg/dL Total Bilirubin (0.2-1.3) mg/dL AST (14-36) IU/L ALT (<35) IU/L Alkaline Phosphatase (38-126) U/L Total Creatine Kinase (30-135) U/L CK-MB (CK-2) CK-MB (CK-2) Rel Index Troponin I (0.01-0.034) ng/mL NT-Pro-B Natriuret Pep (<450) pg/mL Total Protein (6.3-8.2) g/dL Albumin (3.5-5.0) g/dL Globulin (1.7-4.1) g/dL Albumin/Globulin Ratio (1.0-2.8) Lipase (23-300) U/L Procalcitonin (<0.5) ng/mL Urine RBC None seen (0-5/HPF) Urine WBC None seen (0-5/HPF) Urine Bacteria None seen (None) Ur Culture Indicated? Cult not indicated Micro UA Comment Microscopic normal SARS-CoV-2 (PCR) (Negative) Urine Dip Bedside Urine Glucose Negative Bedside Urine Bilirubin - Negative Bedside Urine Ketone +/- 5 Urine Specific [place] 1.020 Bedside Urine Occult Blood +/- Bedside Urine pH 6 Bedside Urine Protein - Negative Bedside Urine Urobilinogen - Negative Bedside Urine Nitrite - Negative Bedside Urine Leukocytes - Negative Esterase <Chase Stern MD - Last Filed: 10/13/20 17:57> Lab Data Labs: Lab Results 10/12/20 10/12/20 10/12/20 Range/Units 16:30 16:37 16:37 WBC 15.9 H (4.5-11.0) X10^3/uL RBC 4.28 (4.0-5.2) X10^6/uL Hgb 14.0 (12.0-16.0) g/dL Hct 40.3 (36-46) % MCV 94.2 (80-100) fL MCH 32.6 (26-34) PG MCHC 34.7 (30-36) % RDW 13.5 (11.6-14.8) % Plt Count 148 L (150-400) X10^3/uL Neut % (Auto) 93.3 H (50-75) % Lymph % (Auto) 2.6 L (25-40) % Gregg % (Auto) 3.2 (3-14) % Eos % (Auto) 0.4 L (2-4) % Baso % (Auto) 0.5 (0-2) % Neut # (Auto) 89192 H (3452-9933) /uL Lymph # (Auto) 400 L (1317-0534) /uL Gregg # (Auto) 500 (0-900) /uL Eos # (Auto) 100 (0-450) /uL Baso # (Auto) 100 (0-100) /uL Sodium 134 L (137-145) mmol/L Potassium 3.5 (3.4-5.1) mmol/L Chloride 101 (98-107) mmol/L Carbon Dioxide 25 (22-32) mmol/L BUN 16 (7-17) mg/dL Creatinine 1.08 H (0.52-1.04) mg/dL Estimated GFR 49.3 L (>60) mL/min BUN/Creatinine Ratio 14.8 (6-22) Glucose 118 H (80-110) mg/dL Lactate (0.7-2.1) mmol/L Calcium 8.8 (8.4-10.2) mg/dL Total Bilirubin 6.5 H (0.2-1.3) mg/dL AST 56 H (14-36) IU/L ALT 95 H (<35) IU/L Alkaline Phosphatase 128 H D (38-126) U/L Total Creatine Kinase (30-135) U/L CK-MB (CK-2) CK-MB (CK-2) Rel Index Troponin I (0.01-0.034) ng/mL NT-Pro-B Natriuret Pep (<450) pg/mL Total Protein 7.3 (6.3-8.2) g/dL Albumin 4.0 (3.5-5.0) g/dL Globulin 3.3 (1.7-4.1) g/dL Albumin/Globulin Ratio 1.2 (1.0-2.8) Lipase 1778 H D (23-300) U/L Procalcitonin 4.00 H (<0.5) ng/mL Urine RBC (0-5/HPF) Urine WBC (0-5/HPF) Urine Bacteria (None) Ur Culture Indicated? Micro UA Comment SARS-CoV-2 (PCR) Negative (Negative) 10/12/20 10/12/20 10/12/20 Range/Units 16:37 16:37 16:37 WBC (4.5-11.0) X10^3/uL RBC (4.0-5.2) X10^6/uL Hgb (12.0-16.0) g/dL Hct (36-46) % MCV (80-100) fL MCH (26-34) PG MCHC (30-36) % RDW (11.6-14.8) % Plt Count (150-400) X10^3/uL Neut % (Auto) (50-75) % Lymph % (Auto) (25-40) % Gregg % (Auto) (3-14) % Eos % (Auto) (2-4) % Baso % (Auto) (0-2) % Neut # (Auto) (5566-4311) /uL Lymph # (Auto) (6887-0847) /uL Gregg # (Auto) (0-900) /uL Eos # (Auto) (0-450) /uL Baso # (Auto) (0-100) /uL Sodium (137-145) mmol/L Potassium (3.4-5.1) mmol/L Chloride (98-107) mmol/L Carbon Dioxide (22-32) mmol/L BUN (7-17) mg/dL Creatinine (0.52-1.04) mg/dL Estimated GFR (>60) mL/min BUN/Creatinine Ratio (6-22) Glucose (80-110) mg/dL Lactate 2.2 H (0.7-2.1) mmol/L Calcium (8.4-10.2) mg/dL Total Bilirubin (0.2-1.3) mg/dL AST (14-36) IU/L ALT (<35) IU/L Alkaline Phosphatase (38-126) U/L Total Creatine Kinase 63 (30-135) U/L CK-MB (CK-2) TNP CK-MB (CK-2) Rel Index TNP Troponin I < 0.012 (0.01-0.034) ng/mL NT-Pro-B Natriuret Pep 5360 H (<450) pg/mL Total Protein (6.3-8.2) g/dL Albumin (3.5-5.0) g/dL Globulin (1.7-4.1) g/dL Albumin/Globulin Ratio (1.0-2.8) Lipase (23-300) U/L Procalcitonin (<0.5) ng/mL Urine RBC (0-5/HPF) Urine WBC (0-5/HPF) Urine Bacteria (None) Ur Culture Indicated? Micro UA Comment SARS-CoV-2 (PCR) (Negative) 10/12/20 10/12/20 Range/Units 17:01 19:20 WBC (4.5-11.0) X10^3/uL RBC (4.0-5.2) X10^6/uL Hgb (12.0-16.0) g/dL Hct (36-46) % MCV (80-100) fL MCH (26-34) PG MCHC (30-36) % RDW (11.6-14.8) % Plt Count (150-400) X10^3/uL Neut % (Auto) (50-75) % Lymph % (Auto) (25-40) % Gregg % (Auto) (3-14) % Eos % (Auto) (2-4) % Baso % (Auto) (0-2) % Neut # (Auto) (6428-6424) /uL Lymph # (Auto) (8457-5679) /uL Gregg # (Auto) (0-900) /uL Eos # (Auto) (0-450) /uL Baso # (Auto) (0-100) /uL Sodium (137-145) mmol/L Potassium (3.4-5.1) mmol/L Chloride (98-107) mmol/L Carbon Dioxide (22-32) mmol/L BUN (7-17) mg/dL Creatinine (0.52-1.04) mg/dL Estimated GFR (>60) mL/min BUN/Creatinine Ratio (6-22) Glucose (80-110) mg/dL Lactate 0.9 (0.7-2.1) mmol/L Calcium (8.4-10.2) mg/dL Total Bilirubin (0.2-1.3) mg/dL AST (14-36) IU/L ALT (<35) IU/L Alkaline Phosphatase (38-126) U/L Total Creatine Kinase (30-135) U/L CK-MB (CK-2) CK-MB (CK-2) Rel Index Troponin I (0.01-0.034) ng/mL NT-Pro-B Natriuret Pep (<450) pg/mL Total Protein (6.3-8.2) g/dL Albumin (3.5-5.0) g/dL Globulin (1.7-4.1) g/dL Albumin/Globulin Ratio (1.0-2.8) Lipase (23-300) U/L Procalcitonin (<0.5) ng/mL Urine RBC None seen (0-5/HPF) Urine WBC None seen (0-5/HPF) Urine Bacteria None seen (None) Ur Culture Indicated? Cult not indicated Micro UA Comment Microscopic normal SARS-CoV-2 (PCR) (Negative) Urine Dip Bedside Urine Glucose Negative Bedside Urine Bilirubin - Negative Bedside Urine Ketone +/- 5 Urine Specific [place] 1.020 Bedside Urine Occult Blood +/- Bedside Urine pH 6 Bedside Urine Protein - Negative Bedside Urine Urobilinogen - Negative Bedside Urine Nitrite - Negative Bedside Urine Leukocytes - Negative Esterase Imaging Data Chest x-ray: Radiologist's Impression: [address] [id number] ReportSigned Patient: Pao Peñaloza CMR#: [id number]: 5Acct:[id number]/Sex: 75 / FDate of Service: 10/12/20Loc: EDAccession Number: [id number] Procedure: XR chest 1V Ordering Provider: Jacob Rondon P.A-C PROCEDURE: XR CHEST 1V INDICATIONS: suspected sepsis TECHNIQUE: One view of the chest was acquired. COMPARISON: [facility], CT, CT ANGIO CHEST PE PROTOCOL, 08/16/2018, 18:53. [facility], CR, XR CHEST 1V, 08/16/2018, 18:07. [facility], CR, XR CHEST 2V, 08/22/2018, 23:23. [facility], CR, XR CHEST 1V, 10/10/2020, 10:56. FINDINGS: Surgical changes and devices: None. Lungs and pleura: An incomplete inspiratory result is noted, causing a crowded appearance to the lung markings. No focal infiltrates are seen. No pneumothorax or significant pleural effusions are seen. Mediastinum: Mediastinal contours appear normal. Heart size is normal. Bones and chest wall: No suspicious bony lesions. Age-appropriate bony degenerative changes are seen. Overlying soft tissues appear unremarkable. IMPRESSION: Limited portable chest study, without focal infiltrates. Dictated by: Yoni Deluca M.D. on 10/12/2020 at 16:10 Approved by: Yoni Deluca M.D. on 10/12/2020 at 16:11 CT scan - abdomen/pelvis: Radiologist's Impression: [address] [id number] Scan ReportSigned Patient: Pao Peñaloza CMR#: [id number]: 5Acct:[id number]/Sex: 75 / FDate of Service: 10/12/20Loc: EDAccession Number: [id number] Procedure: CT abdomen pelvis w con Ordering Provider: Jacob Rondon P.A-C PROCEDURE: CT ABDOMEN PELVIS W CON INDICATIONS: sepsis TECHNIQUE: After the administration of intravenous contrast, axial sections acquired from the lung bases to the pubic symphysis. Coronal and sagittal reformats were performed. For radiation dose reduction, the following was used: automated exposure control, adjustment of mA and/or kV according to patient size. COMPARISON: [facility], CT, CT ABDOMEN PELVIS W CON, 10/10/2020, 10:46. FINDINGS: Image quality: Excellent. Lung bases: Unremarkable. Heart: No significant findings. ABDOMEN: Liver: Unremarkable. Gallbladder: Surgically absent Biliary ducts: Unremarkable. Pancreas: Unremarkable. Spleen: Unremarkable. Adrenal Glands: Unremarkable. Kidneys and Ureters: Unremarkable. Stomach and Bowel: Stomach, small bowel loops, and colon are unremarkable. Peritoneum: No abnormal intraperitoneal fluid. Trace free fluid in the pelvis. Ventral Wall: No hernias. Abdominal Nodes: No retroperitoneal or mesenteric adenopathy by size criteria. Vessels: Aorta and inferior vena cava are normal in size. PELVIS: Pelvic Organs: Unremarkable. Bladder: Decompressed. Monroe catheter is present. Pelvic Nodes: No enlarged lymph nodes. Miscellaneous: No hernias are seen. Bones: Chronic fracture deformity of the upper sacrum with anterior displaceme nt of the S1 segment. Lumbosacral fusion hardware is present, as before. IMPRESSION: 1. Trace free fluid in the pelvis. 2. No loculated fluid collection to indicate abscess. Dictated by: June Bhakta M.D. on 10/12/2020 at 18:53 Approved by: June Bhakta M.D. on 10/12/2020 at 18:55 US - abdomen: Radiologist's Impression: [address] [id number] ReportSigned Patient: Pao Peñaloza CMR#: [id number]: 5Acct:[id number]/Sex: 75 / FDate of Service: 10/12/20Loc: EDAccession Number: [id number] Procedure: US abdomen limited Ordering Provider: Jacob Rondon P.A-C PROCEDURE: US ABDOMEN LIMITED INDICATIONS: SEPSIS. ELEVATED BILIRUBIN AND LIVER ENZYMES. TECHNIQUE: Real-time scanning was performed of the abdominal and retroperitoneal organs, with image documentation. COMPARISON: [facility], CT, CT ABDOMEN PELVIS W CON, 10/12/2020, 18:06. FINDINGS: Liver: Liver is normal in size and homogeneous in echotexture. Gallbladder: Surgically Biliary ducts: Intrahepatic bile ducts are non-dilated. Extrahepatic bile duct caliber measures 6 point mm. Normal is 6-7 mm or less in diameter, or 10 mm or less post-cholecystectomy. Pancreas: Not well seen IMPRESSION: No acute process. No significant change since same CT examination, allowing for differences in modality. Dictated by: June Bhakta M.D. on 10/12/2020 at 19:44 Approved by: June Bhakta M.D. on 10/12/2020 at 19:45 Discharge Plan Departure Patient Disposition: [facility] Clinical Impression: Acute pancreatitis Qualifiers: Pancreatitis type: unspecified pancreatitis type Acute pancreatitis complication: unspecified Qualified Code(s): K85.90 - Acute pancreatitis without necrosis or infection, unspecified Discharge Date/Time: 10/13/20 16:30 Prescriptions: No Action losartan 50 mg tablet 50 mg PO DAILY RF: 0 levothyroxine 137 mcg tablet 137 mcg PO QAM RF: 0 potassium chloride 10 mEq capsule, extended release 10 meq PO DAILY RF: 0 metoprolol tartrate 25 mg tablet 25 mg PO DAILY RF: 0 Toviaz 8 mg tablet extended release 24 hr 8 mg PO DAILY RF: 0 sulfamethoxazole-trimethoprim 800-160 mg tablet 1 tab PO BID Qty: 10 RF: 0 Eliquis 5 mg Tablet 5 mg PO BID Qty: 60 RF: 0
--- NOTE | 2020-10-12 16:57 | DI.RAD.S_ITS ---
PROCEDURE: XR CHEST 1V INDICATIONS: suspected sepsis TECHNIQUE: One view of the chest was acquired. COMPARISON: [facility], CT, CT ANGIO CHEST PE PROTOCOL, 08/16/2018, 18:53. [facility], CR, XR CHEST 1V, 08/16/2018, 18:07. [facility], CR, XR CHEST 2V, 08/22/2018, 23:23. [facility], CR, XR CHEST 1V, 10/10/2020, 10:56. FINDINGS: Surgical changes and devices: None. Lungs and pleura: An incomplete inspiratory result is noted, causing a crowded appearance to the lung markings. No focal infiltrates are seen. No pneumothorax or significant pleural effusions are seen. Mediastinum: Mediastinal contours appear normal. Heart size is normal. Bones and chest wall: No suspicious bony lesions. Age-appropriate bony degenerative changes are seen. Overlying soft tissues appear unremarkable. IMPRESSION: Limited portable chest study, without focal infiltrates. Dictated by: Yoni Deluca M.D. on 10/12/2020 at 16:10 Approved by: Yoni Deluca M.D. on 10/12/2020 at 16:11
[2020-10-12 17:04] LABS: Add Manual Diff / Slide Review NO; Basophils Absolute Auto 100 /uL (0-100); Basophils Percent Auto 0.5 % (0-2); Eosinophils Absolute Auto 100 /uL (0-450); Eosinophils Percent Auto 0.4 % (2-4); Hematocrit 40.3 % (36-46); Lymphocytes Absolute Auto 400 /uL (1100-4500); Lymphocytes Percent Auto 2.6 % (25-40); Mean Corpuscular HGB Conc 34.7 % (30-36); Mean Corpuscular Hemoglobin 32.6 PG (26-34); Mean Corpuscular Volume 94.2 fL (80-100); Monocytes Absolute Auto 500 /uL (0-900); Monocytes Percent Auto 3.2 % (3-14); Neutrophils Absolute Auto 14900 /uL (1500-7000); Neutrophils Percent Auto 93.3 % (50-75); Platelet Count 148 X10^3/uL (150-400); Red Blood Cell Count 4.28 X10^6/uL (4.0-5.2); Red Cell Distribution Width 13.5 % (11.6-14.8); White Blood Cell Count 15.9 X10^3/uL (4.5-11.0)
[2020-10-12 17:11] LABS: Bacteria Urine None Seen; RBC Urine None Seen (0-5/HPF); WBC Urine None Seen (0-5/HPF)
[2020-10-12 17:15] LABS: Alanine Aminotransferase 95 IU/L (<35); Albumin Globulin Ratio 1.2 (1.0-2.8); Alkaline Phosphatase 128 U/L (38-126); Aspartate Aminotransferase 56 IU/L (14-36); BUN Creatinine Ratio 14.8 (6-22); Bilirubin Total 6.5 mg/dL (0.2-1.3); Blood Urea Nitrogen 16 mg/dL (7-17); Calcium 8.8 mg/dL (8.4-10.2); Carbon Dioxide 25 mmol/L (22-32); Chloride 101 mmol/L (98-107); Estimated Glomerular Filt Rate 49.3 mL/min (>60); Globulin 3.3 g/dL (1.7-4.1); Glucose 118 mg/dL (80-110); HEMOLYSIS < 15 (0-50); Lactate (Lactic Acid) 2.2 mmol/L (0.7-2.1); Lipase 1778 U/L (23-300); Potassium 3.5 mmol/L (3.4-5.1); Sodium 134 mmol/L (137-145); Total Protein 7.3 g/dL (6.3-8.2)
[2020-10-12] MEDS: SODIUM CHLORIDE 0.9% 1,000 ML 1000 ML IV (17:17)
[2020-10-12 17:18] LABS: Creatine Kinase 63 U/L (30-135)
[2020-10-12] MEDS: cefTRIAXone 2,000 MG in SODIUM CHLORIDE 0.9% 100 ML 200 ML IV (17:18)
[2020-10-12] MEDS: ACETAMINOPHEN 325 MG TABLET 975 MG PO (17:18)
[2020-10-12 17:21] LABS: Culture Indicated Urine Cult Not Indicated; Urine Comments Microscopic Normal
[2020-10-12 17:26] LABS: NT-proBNP (BNP-Adult 18+) 5360 pg/mL (<450)
[2020-10-12 17:31] LABS: Troponin I < 0.012 ng/mL (0.01-0.034)
--- NOTE | 2020-10-12 17:54 | DI.CT.S_ITS ---
PROCEDURE: CT ABDOMEN PELVIS W CON INDICATIONS: sepsis TECHNIQUE: After the administration of intravenous contrast, axial sections acquired from the lung bases to the pubic symphysis. Coronal and sagittal reformats were performed. For radiation dose reduction, the following was used: automated exposure control, adjustment of mA and/or kV according to patient size. COMPARISON: [facility], CT, CT ABDOMEN PELVIS W CON, 10/10/2020, 10:46. FINDINGS: Image quality: Excellent. Lung bases: Unremarkable. Heart: No significant findings. ABDOMEN: Liver: Unremarkable. Gallbladder: Surgically absent Biliary ducts: Unremarkable. Pancreas: Unremarkable. Spleen: Unremarkable. Adrenal Glands: Unremarkable. Kidneys and Ureters: Unremarkable. Stomach and Bowel: Stomach, small bowel loops, and colon are unremarkable. Peritoneum: No abnormal intraperitoneal fluid. Trace free fluid in the pelvis. Ventral Wall: No hernias. Abdominal Nodes: No retroperitoneal or mesenteric adenopathy by size criteria. Vessels: Aorta and inferior vena cava are normal in size. PELVIS: Pelvic Organs: Unremarkable. Bladder: Decompressed. Monroe catheter is present. Pelvic Nodes: No enlarged lymph nodes. Miscellaneous: No hernias are seen. Bones: Chronic fracture deformity of the upper sacrum with anterior displacement of the S1 segment. Lumbosacral fusion hardware is present, as before. IMPRESSION: 1. Trace free fluid in the pelvis. 2. No loculated fluid collection to indicate abscess. Dictated by: June Bhakta M.D. on 10/12/2020 at 18:53 Approved by: June Bhakta M.D. on 10/12/2020 at 18:55
[2020-10-12 17:57] LABS: COVID19 - ADMIT (NP swab/PCR) Negative (Negative)
--- NOTE | 2020-10-12 18:11 | DI.US.S_ITS ---
PROCEDURE: US ABDOMEN LIMITED INDICATIONS: SEPSIS. ELEVATED BILIRUBIN AND LIVER ENZYMES. TECHNIQUE: Real-time scanning was performed of the abdominal and retroperitoneal organs, with image documentation. COMPARISON: [facility], CT, CT ABDOMEN PELVIS W CON, 10/12/2020, 18:06. FINDINGS: Liver: Liver is normal in size and homogeneous in echotexture. Gallbladder: Surgically Biliary ducts: Intrahepatic bile ducts are non-dilated. Extrahepatic bile duct caliber measures 6 point mm. Normal is 6-7 mm or less in diameter, or 10 mm or less post-cholecystectomy. Pancreas: Not well seen IMPRESSION: No acute process. No significant change since same CT examination, allowing for differences in modality. Dictated by: June Bhakta M.D. on 10/12/2020 at 19:44 Approved by: June Bhakta M.D. on 10/12/2020 at 19:45
[2020-10-12 18:59] LABS: Reflexed Lactate in 2 Hours Y
[2020-10-12 19:37] LABS: Lactate 2HR (Lactic Acid Rflx) 0.9 mmol/L (0.7-2.1)
[2020-10-13] VITALS (36 sets, daily range): BP systolic 113–138; BP diastolic 56–71; PULSE 60–73; RESP 12–24; TEMP 36.9; O2SAT 97–100
[2020-10-13] MEDS: SODIUM CHLORIDE 0.9% 1,000 ML 125 ML IV (13:59)
--- NOTE | 2020-10-13 14:27 | PC.NURSE ---
patient took her home medications with me as a witness. provider okayed for patient to take. patient took: Eliquis 5mg tablet levothyroxine 137mcg tablet losartan 50mg tablet metoprolol tartrate 25mg tablet potassium chloride 10 meq capsule toviaz 8mg tablet patient tolerated well. provider aware and no new orders at this time. patient is still accepted at but we are still waiting for a bed for placement. patient lying in bed reading book.
--- NOTE | 2020-10-13 16:40 | PC.NURSE ---
IV discontinued because patient had a lumpectomy on the left. provider aware.
== END 2020-10-13 16:30 | disposition short-term general hospital (02) ==
PROVIDERS: Physician Assistant; Emergency Provider Emergency Medicine
DX: K85.90 Acute pancreatitis without necrosis or infection, unspecified (principal); Z20.822 Contact with and (suspected) exposure to COVID-19
CPT/HCPCS: 36415; 51702; 71045; 74177; 76705; 80053; 81003; 81015; 82550; 83605; 83690; 83880; 84145; 84484; 85025; 87040; 87086; 87635; 93005; 93010; 96361; 96365; 96374; 99285; C9803; J0696; J2405; Q9967